=== PATIENT | male | born 1970 | race American Indian/Alaskan Native ===

== ENCOUNTER 2016-08-18 12:23 | Emergency (ER) | payer BC ==
[2016-08-18 12:23] VITALS: BMI 58.6
[2016-08-18 12:44] VITALS: TEMP 97.9; O2SAT 99
--- NOTE | 2016-08-18 13:13 | ED PDOC ---
Arrival/HPI - General Chief Complaint: High Blood Pressure Time Seen by Provider: 08/18/16 12:24 Historian: Patient - History of Present Illness Narrative History of Present Illness (Text): 08/18/16 13:10 46 year old male presents to the emergency department complaining of elevated blood pressure. Patient reports he has not been taking his hypertension medication over the past few days due to starting a recent cleanse. He states it was in the 200's systolic. Patient reports he took his hypertension medication prior to arrival. pt reports chest pain and subjective dyspnea. h/o of pe, not on eliquis at this time. Time/Duration: < week Symptom Onset: Gradual Symptom Course: Improving Modifying Factors (Text): None Associated Symptoms (Text): None Past Medical History - Provider Review Nursing Documentation Reviewed: Yes - Infectious Disease Hx of Infectious Diseases: None - Tetanus Immunization Tetanus Immunization: Unknown - Cardiac Hx Hypertension: Yes - Pulmonary Hx Pulmonary Embolism: Yes - Neurological Hx Neurological Disorder: No - HEENT Hx HEENT Disorder: No - Renal Hx Renal Disorder: No - Endocrine/Metabolic Hx Endocrine Disorders: No - Hematological/Oncological Hx Blood Disorders: No - Integumentary Hx Dermatological Disorder: No - Musculoskeletal/Rheumatological Hx Musculoskeletal Disorders: Yes Hx Falls: No Hx Gout: Yes - Gastrointestinal Hx Gastrointestinal Disorders: No - Genitourinary/Gynecological Hx Genitourinary Disorders: No - Psychiatric Hx Depression: No Hx Substance Use: No - Surgical History Hx Orthopedic Surgery: Yes (ORIF LEFT HIP pins isaac hips) - Anesthesia Hx Anesthesia: Yes Hx Anesthesia Reactions: No Hx Malignant Hyperthermia: No - Suicidal Assessment Feels Threatened In Home Enviroment: No Family/Social History - Physician Review Nursing Documentation Reviewed: Yes Family/Social History: Unknown Family HX Smoking Status: Never Smoked Hx Alcohol Use: No Hx Substance Use: No Hx Substance Use Treatment: No Allergies/Home Meds Allergies/Adverse Reactions: Allergies hydrochlorothiazide [From Hyzaar] Allergy (Verified 08/18/16 12:44) ANAPHYLAXIS losartan potassium [From Hyzaar] Allergy (Verified 08/18/16 12:44) ANAPHYLAXIS amlodipine besylate [From Norvasc] Adverse Reaction (Verified 08/18/16 12:44) HEADACHE pt feels jittery Home Medications: Home Meds Medication Instructions Recorded Confirmed Nebivolol [Bystolic] 5 mg PO DAILY 07/05/16 08/18/16 Chlorthalidone [Hygroton] 25 mg PO DAILY 08/18/16 08/18/16 Review of Systems - Physician Review All systems were reviewed & negative as marked: Yes - Review of Systems Constitutional: absent: Fatigue Eyes: absent: Vision Changes Respiratory: absent: SOB Cardiovascular: absent: Chest Pain Gastrointestinal: absent: Abdominal Pain Neurological: absent: Headache, Dizziness Physical Exam Vital Signs Reviewed: Yes Vital Signs Temp Pulse Resp BP Pulse Ox 08/18/16 17:27 66 18 154/83 H 99 08/18/16 15:00 65 17 173/60 H 99 08/18/16 13:45 60 20 184/99 H 99 08/18/16 12:44 97.9 F 99 H 18 161/85 H 99 08/18/16 12:35 97.9 F 71 18 177/108 H 98 Temperature: Afebrile Blood Pressure: Normal Pulse: Regular Respiratory Rate: Normal Appearance: Positive for: Well-Appearing, Non-Toxic, Comfortable Pain Distress: None Mental Status: Positive for: Alert and Oriented X 3 - Systems Exam Head: Present: Atraumatic, Normocephalic Pupils: Present: PERRL Extroacular Muscles: Present: EOMI Conjunctiva: Present: Normal Mouth: Present: Moist Mucous Membranes Neck: Present: Normal Range of Motion Respiratory/Chest: Present: Clear to Auscultation, Good Air Exchange. No: Respiratory Distress, Accessory Muscle Use Cardiovascular: Present: Regular Rate and Rhythm, Normal S1, S2. No: Murmurs Abdomen: Present: Normal Bowel Sounds. No: Tenderness, Distention, Peritoneal Signs Back: Present: Normal Inspection Upper Extremity: Present: Normal Inspection. No: Cyanosis, Edema Lower Extremity: Present: Normal Inspection. No: Edema Neurological: Present: GCS=15, CN II-XII Intact, Speech Normal Skin: Present: Warm, Dry, Normal Color. No: Rashes Psychiatric: Present: Alert, Oriented x 3, Normal Insight, Normal Concentration Medical Decision Making ED Course and Treatment: Impression: 46 year old male presents complaining of elevated blood pressure. Differential Diagnosis include but are not limited to: Asymptomatic hypertension vs hypertensive urgency/emergency . pt also reported intermittant cp, off eliquis will eval for pe. Plan: -- Labs -- Reassess and disposition Prior Visits: Notes and results from previous visits were reviewed. Patient last seen in ED on 07/08/16 for suspected allergic reaction and discharged home. Progress Notes: Chest X-ray Sales Director: Dr. Wayne Dorsey IMPRESSION: No infiltrate. Mild congestive change. PROCEDURE: CT Chest with contrast (Pulmonary Angiogram) Sales Director : Franky Diez MD IMPRESSION: Unremarkable CT pulmonary angiogram. No pulmonary embolus. 08/18/16 14:[address] neg. pt states feels improved. no e/o of end organ damage. pt specifically requesting to be d/c home. ekg no changes, trop neg. will d/c advise outpt f/u and return precautiosn - Lab Interpretations Lab Results: 08/18/16 13:05 08/18/16 13:05 Lab Results 08/18/16 13:05: WBC 9.2 D, RBC 4.76, Hgb 13.1 L, Hct 39.3 L, MCV 82.6, MCH 27.5 , MCHC 33.3, RDW 13.2, Plt Count 288, MPV 9.8, Gran % 49.3 L, Lymph % (Auto) 39.6 H, Yell % (Auto) 10.4 H, Eos % (Auto) 0.4 L, Baso % (Auto) 0.3, Gran # 4.52 , Lymph # 3.6 H, Yell # 1.0 H, Eos # 0.0, Baso # 0.03, PT 11.4, INR 1.06, APTT 28.9, D-Dimer, Quantitative 0.67 H, Sodium 137, Potassium 3.7, Chloride 99, Carbon Dioxide 30, Anion Gap 12, BUN 9, Creatinine 1.0, Est GFR ( Amer) > 60, Est GFR (Non-Af Amer) > 60, Random Glucose 96, Calcium 9.5, Magnesium 2.0 , Total Bilirubin 0.8, AST 28, ALT 30, Alkaline Phosphatase 91, Lactate Dehydrogenase 401, Total Creatine Kinase 245 H, CK-MB (CK-2) 1.5, CK-MB (CK-2) % Cancelled, Troponin I < 0.01, NT-Pro-B Natriuret Pep 33.8, Total Protein 7.5, Albumin 4.0, Globulin 3.5, Albumin/Globulin Ratio 1.1, Urine Color Yellow, Urine Appearance Clear, Urine pH 7.0, Ur Specific [place] 1.010, Urine Protein Negative, Urine Glucose (UA) Negative, Urine Ketones Negative, Urine Blood Negative, Urine Nitrate Negative, Urine Bilirubin Negative, Urine Urobilinogen 0.2, Ur Leukocyte Esterase Negative - RAD Interpretation Radiology Orders: 08/18/16 12:57 CHEST PORTABLE [RAD] Stat 08/18/16 14:16 ANGIO CHEST PE PROTOCOL [CT] Stat - EKG Interpretation EKG Interpretation (Text): EKG shows NSR at [address]/T wave changes Interpreted by ED Physician: Yes Type: 12 lead EKG - Medication Orders Current Medication Orders: Discontinued Medications Iodixanol (Visipaque 320 Mg/Ml 100 Ml) Confirm Administered Dose 100 ml IV .STK- MED ONE Stop: 08/18/16 14:21 Iodixanol (Visipaque 320 Mg/Ml 100 Ml) Confirm Administered Dose 100 ml IV .STK- MED ONE Stop: 08/18/16 14:36 Iodixanol (Visipaque 320 Mg/Ml 100 Ml) Confirm Administered Dose 100 ml IV .STK- MED ONE Stop: 08/18/16 16:09 - Scribe Statement The provider has reviewed the documentation as recorded by the Charan Jaramillo Provider Scribe Attestation: All medical record entries made by the Charan were at my direction and personally dictated by me. I have reviewed the chart and agree that the record accurately reflects my personal performance of the history, physical exam, medical decision making, and the department course for this patient. I have also personally directed, reviewed, and agree with the discharge instructions and disposition. Disposition/Present on Arrival - Present on Arrival Any Indicators Present on Arrival: No History of DVT/PE: Yes History of Uncontrolled Diabetes: No Urinary Catheter: No History of Decub. Ulcer: No History Surgical Site Infection Following: None - Disposition Have Diagnosis and Disposition been Completed?: Yes Diagnosis: Hypertension, Chest pain Disposition: HOME/ ROUTINE Disposition Time: 17:14 Patient Problems: Current Active Problems Problem Status Diagnosed Disorder of upper airway Acute Condition: STABLE Discharge Instructions (ExitCare): Chest Pain (ED), Hypertension (ED) Additional Instructions: please follow up with your doctor. return to er with worsening symptosm or concerns Referrals: Dexter Gomez MD [Primary Care Provider] - Follow up with primary Krishna,Robertammad, MD [Staff Provider] - Follow up with primary
--- NOTE | 2016-08-18 13:37 | RAD ---
HISTORY: cp COMPARISON: 05/31/2016 FINDINGS: LUNGS: No active pulmonary disease. PLEURA: No significant pleural effusion identified, no pneumothorax apparent. CARDIOVASCULAR: Normal heart size. Mild congestive change OSSEOUS STRUCTURES: No significant abnormalities. VISUALIZED UPPER ABDOMEN: Normal. OTHER FINDINGS: None. IMPRESSION: No infiltrate. Mild congestive change.
[2016-08-18 13:43] LABS: URINE BILIRUBIN NEGATIVE (NEGATIVE); URINE BLOOD NEGATIVE (NEGATIVE); URINE GLUCOSE (UA) NEGATIVE (NEGATIVE); URINE KETONE NEGATIVE (NEGATIVE); URINE LEUKOCYTE ESTERASE NEGATIVE Leu/uL (NEGATIVE); URINE PROTEIN NEGATIVE mg/dL (<30 mg/dL); URINE UROBILINOGEN 0.2 E.U./dL (<1 E.U./dL)
[2016-08-18 13:44] LABS: URINE APPEARANCE CLEAR (CLEAR); URINE COLOR YELLOW (YELLOW)
[2016-08-18 13:53] LABS: ADD MANUAL DIFF? NO
[2016-08-18 13:58] LABS: BASO # 0.03 K/mm3 (0.0-2.0); BASO % 0.3 % (0.0-3.0); EOS % 0.4 % (1.5-5.0); GRAN # 4.52 (1.4-6.5); GRAN % 49.3 % (50.0-68.0); HEMATOCRIT 39.3 % (42.0-52.0); LYMPH # 3.6 (1.2-3.4); LYMPH % 39.6 % (22.0-35.0); MEAN CELL VOLUME 82.6 fL (80.0-105.0); MEAN CORPUSCULAR HEMOGLOBIN 27.5 pg (25.0-35.0); MEAN CORPUSCULAR HGB CONC 33.3 g/dl (31.0-37.0); MEAN PLATELET VOLUME 9.8 fl (7.0-11.0); MONO % 10.4 % (1.0-6.0); PLATELET COUNT 288 10^3/uL (120.0-450.0); RED CELL DISTRIBUTION WIDTH 13.2 % (11.5-14.5); WHITE BLOOD COUNT 9.2 10^3/ul (4.5-11.0)
[2016-08-18 14:05] LABS: ALB/GLOB RATIO 1.1 (1.1-1.8); ALKALINE PHOSPHATASE 91 U/L (38-133); ALT/SGPT 30 U/L (7-56); AST/SGOT 28 U/L (15-59); BILIRUBIN,TOTAL 0.8 mg/dL (0.2-1.3); BLOOD UREA NITROGEN 9 mg/dL (7-21); CALCIUM 9.5 mg/dL (8.4-10.5); CARBON DIOXIDE 30 mmol/L (21-33); CHLORIDE 99 mmol/L (98-107); GFR AFRICAN-AMERICAN > 60; GLUCOSE,RANDOM 96 mg/dL (70-110); POTASSIUM 3.7 mmol/L (3.6-5.0); SODIUM 137 mmol/L (132-148); TOTAL PROTEIN 7.5 g/dL (5.8-8.3)
[2016-08-18 14:11] LABS: INR 1.06 (0.93-1.08); PARTIAL THROMBOPLASTIN TIME 28.9 Seconds (23.7-30.8)
[2016-08-18 14:15] LABS: D DIMER 0.67 mg/L FEU (0-0.50)
[2016-08-18 14:17] LABS: TROPONIN I < 0.01 ng/mL
[2016-08-18] MEDS ORDERED: Iodixanol 320 MG/ML 100 ML BOTTLE IV ONE ×3 (14:20→16:08)
--- NOTE | 2016-08-18 15:27 | CARD ---
APPROVED REPORT EKG Measurement Heart [id number] <Conclusion> Normal sinus rhythm NSSTW changes Q in 3
--- NOTE | 2016-08-18 17:07 | CT ---
PROCEDURE: CT Chest with contrast (Pulmonary Angiogram) HISTORY: cp elevated dimer COMPARISON: None available. TECHNIQUE: Axial computed tomography images were obtained of the chest in the pulmonary arterial phase of enhancement. Coronal and sagittal reformatted images were created and reviewed. Intravenous contrast dose: 100 cc of Visipaque Radiation dose: Total exam DLP = 951 mGy-cm. This CT exam was performed using one or more of the following dose reduction techniques: Automated exposure control, adjustment of the mA and/or kV according to patient size, and/or use of iterative reconstruction technique. FINDINGS: PULMONARY ARTERIES: Unremarkable. No pulmonary embolism. AORTA: No acute findings. No thoracic aortic aneurysm. LUNGS: Unremarkable. No nodule, mass or pulmonary consolidation. PLEURAL SPACES: Unremarkable. No effusion or pneuomothorax. HEART: Unremarkable. No cardiomegaly. No significant pericardial effusion. LYMPH NODES: No lymphadenopathy. BONES, CHEST WALL: Unremarkable. No fracture or destructive lesion OTHER FINDINGS: Unremarkable. IMPRESSION: Unremarkable CT pulmonary angiogram. No pulmonary embolus.
[2016-08-18 17:27] VITALS: BP 154/83; PULSE 66; RESP 18
== END 2016-08-18 17:36 | disposition home or self-care (01) ==
LOC: ED 12:23
DX: I10 Essential (primary) hypertension (principal); R07.9 Chest pain, unspecified
CPT/HCPCS: 71010; 71275; 80053; 81003; 82550; 82553; 83615; 83735; 83880; 84484; 85025; 85378; 85610; 85730; 93005; 99285; Q9967

== ENCOUNTER 2016-09-14 23:46 | Emergency (ER) | payer BC ==
[2016-09-15 00:13] VITALS: BMI 60.7
[2016-09-15 00:17] VITALS: RESP 18; TEMP 98.8
--- NOTE | 2016-09-15 00:29 | ED PDOC ---
Arrival/HPI - General Chief Complaint: Lower Extremity Problem/Injury Time Seen by Provider: 09/15/16 00:06 Historian: Patient - History of Present Illness Narrative History of Present Illness (Text): 09/15/16 00:25 This 46 yo morbid obese male, with pmh htn, presents to this ED c/o left knee problem x 1 week. Patient stated his left knee sometimes " gives out". He said this has happened twice this week. Patient admits exercising within last 3 months. Patient denies pain, swelling, redness, leg swelling, sob, cp, trauma , or recent travel. Patient ambulates normal with mild knee 'discomfort' Time/Duration: Other (see HPI) Context: Home Past Medical History - Provider Review Nursing Documentation Reviewed: Yes - Infectious Disease Hx of Infectious Diseases: None - Tetanus Immunization Tetanus Immunization: Unknown - Cardiac Hx Hypertension: Yes - Pulmonary Hx Pulmonary Embolism: Yes - Neurological Hx Neurological Disorder: No - HEENT Hx HEENT Disorder: No - Renal Hx Renal Disorder: No - Endocrine/Metabolic Hx Endocrine Disorders: No - Hematological/Oncological Hx Blood Disorders: No - Integumentary Hx Dermatological Disorder: No - Musculoskeletal/Rheumatological Hx Musculoskeletal Disorders: Yes Hx Falls: No Hx Gout: Yes - Gastrointestinal Hx Gastrointestinal Disorders: No - Genitourinary/Gynecological Hx Genitourinary Disorders: No - Psychiatric Hx Depression: No Hx Substance Use: No - Surgical History Hx Orthopedic Surgery: Yes (ORIF LEFT HIP pins isaac hips) - Anesthesia Hx Anesthesia: Yes Hx Anesthesia Reactions: No Hx Malignant Hyperthermia: No - Suicidal Assessment Feels Threatened In Home Enviroment: No Family/Social History - Physician Review Nursing Documentation Reviewed: Yes Family/Social History: No Known Family HX Smoking Status: Never Smoked Hx Alcohol Use: No Hx Substance Use: No Hx Substance Use Treatment: No Allergies/Home Meds Allergies/Adverse Reactions: Allergies hydrochlorothiazide [From Hyzaar] Allergy (Verified 08/18/16 12:44) ANAPHYLAXIS losartan potassium [From Hyzaar] Allergy (Verified 08/18/16 12:44) ANAPHYLAXIS amlodipine besylate [From Norvasc] Adverse Reaction (Verified 08/18/16 12:44) HEADACHE pt feels jittery Home Medications: Home Meds Medication Instructions Recorded Confirmed Nebivolol [Bystolic] 5 mg PO DAILY 07/05/16 08/18/16 Chlorthalidone [Hygroton] 25 mg PO DAILY 08/18/16 08/18/16 Review of Systems - Review of Systems Constitutional: Normal. absent: Fatigue, Weight Change, Fevers Eyes: Normal ENT: Normal Respiratory: Normal Cardiovascular: Normal Gastrointestinal: Normal Genitourinary Male: Normal Musculoskeletal: Other ((+) Left knee gives out) Skin: Normal Neurological: Normal Endocrine: Normal Hemo/Lymphatic: Normal Psychiatric: Normal Physical Exam Vital Signs Temp Pulse Resp BP Pulse Ox 09/15/16 02:20 76 18 149/74 98 09/15/16 00:15 98.8 F 84 18 156/92 H 99 Temperature: Afebrile Blood Pressure: Normal Pulse: Regular Respiratory Rate: Normal Appearance: Positive for: Well-Appearing, Non-Toxic, Comfortable Pain Distress: None Mental Status: Positive for: Alert and Oriented X 3 - Systems Exam Head: Present: Atraumatic, Normocephalic Pupils: Present: PERRL Extroacular Muscles: Present: EOMI Conjunctiva: Present: Normal Mouth: Present: Moist Mucous Membranes Neck: Present: Normal Range of Motion Respiratory/Chest: Present: Clear to Auscultation, Good Air Exchange. No: Respiratory Distress, Accessory Muscle Use Cardiovascular: Present: Regular Rate and Rhythm, Normal S1, S2. No: Murmurs Abdomen: Present: Normal Bowel Sounds. No: Tenderness, Distention, Peritoneal Signs Back: Present: Normal Inspection Upper Extremity: Present: Normal Inspection. No: Cyanosis, Edema Lower Extremity: Present: Normal Inspection, NORMAL PULSES, Normal ROM, Neurovascularly Intact, Capillary Refill < 2 s, Other ((+) anterior and posterior knee drawer test were negative. No medial or lateral collateral ligament laxity.). No: Edema, CALF TENDERNESS, Peter's Sign, Tenderness, Swelling, Erythema, Deformity, Temperature Abnormalties Neurological: Present: GCS=15, CN II-XII Intact, Speech Normal, Motor Func Grossly Intact, Normal Sensory Function, Normal Cerebellar Funct, Gait Normal, Memory Normal Skin: Present: Warm, Dry, Normal Color. No: Rashes Psychiatric: Present: Alert, Oriented x 3, Normal Insight, Normal Concentration Medical Decision Making ED Course and Treatment: 09/15/16 01:50 Re-evaluation. Patient feels better. Discussed results and plan with patient who expresses understanding. All questions answered and there is agreement with the plan to discharge home with instructions. Patient stable for discharge. Return if symptoms persist or worsen. Patient stated he has a knee brace at home. He asked for a cane. Re-evaluation Time: 01:50 Reassessment Condition: Re-examined, Improved - RAD Interpretation Narrative RAD Interpretations (Text): Knee X-rays: No fx or sublux. Mild DJD Radiology Orders: 09/15/16 00:29 KNEE WITH PATELLA LEFT 3 VIEW [RAD] Stat Disposition/Present on Arrival - Present on Arrival Any Indicators Present on Arrival: No History of DVT/PE: Yes History of Uncontrolled Diabetes: No Urinary Catheter: No History of Decub. Ulcer: No History Surgical Site Infection Following: None - Disposition Have Diagnosis and Disposition been Completed?: Yes Diagnosis: Knee pain Disposition: HOME/ ROUTINE Disposition Time: 01:51 Patient Plan: Discharge Condition: GOOD Discharge Instructions (ExitCare): Knee Sprain (ED) Additional Instructions: Call private doctor for follow up visit in 1-2 days. Take over the counter Tylenol for pain as needed. Remove zen bandage at bedtime. Return to emergency department if symptoms worsen. Call your private Orthopedist if knee problem persist, or worsen Referrals: Dexter Gomez MD [Primary Care Provider] - Follow up with primary Forms: WORK NOTE
[2016-09-15 02:21] VITALS: BP 149/74; PULSE 76; O2SAT 98
--- NOTE | 2016-09-15 08:12 | RAD ---
PROCEDURE: Left Knee Radiographs. HISTORY: Pain. COMPARISON: None. FINDINGS: BONES: Normal. No fracture. JOINTS: Joint space narrowing patellofemoral joint JOINT EFFUSION: None. OTHER FINDINGS: None. IMPRESSION: Mild degenerative changes in the patellofemoral joint
== END 2016-09-15 02:21 | disposition home or self-care (01) ==
LOC: ED 23:46
DX: M25.562 Pain in left knee (principal)

== ENCOUNTER 2016-10-10 10:23 | Emergency (ER) | payer BC ==
[2016-10-10 10:47] VITALS: TEMP 98.7; BMI 58.4
--- NOTE | 2016-10-10 11:03 | ED PDOC ---
Arrival/HPI - General Historian: Patient - General Chief Complaint: Lower Extremity Problem/Injury Time Seen by Provider: 10/10/16 10:53 - History of Present Illness Narrative History of Present Illness (Text): 10/10/16 10:53 46 y/o male, pmh including gout, c/o gout pain x 3 days. Pt. stated that he has been taking indocin with relief but of it, no fever or chills, no headache or night sweat, no dizziness, no chest pain or shortness of breath, admits eating alot of red meat 2 weeks ago, no palpitation, no numbness or tingling, no other medical or psychological complaints. (Se Baum) Past Medical History - Provider Review Nursing Documentation Reviewed: Yes - Infectious Disease Hx of Infectious Diseases: None - Tetanus Immunization Tetanus Immunization: Unknown - Cardiac Hx Cardiac Disorders: Yes Hx Hypertension: Yes - Pulmonary Hx Respiratory Disorders: Yes Hx Pulmonary Embolism: Yes - Neurological Hx Neurological Disorder: No - HEENT Hx HEENT Disorder: No - Renal Hx Renal Disorder: No - Endocrine/Metabolic Hx Endocrine Disorders: No - Hematological/Oncological Hx Blood Disorders: No - Integumentary Hx Dermatological Disorder: No - Musculoskeletal/Rheumatological Hx Musculoskeletal Disorders: Yes Hx Falls: No Hx Gout: Yes - Gastrointestinal Hx Gastrointestinal Disorders: No - Genitourinary/Gynecological Hx Genitourinary Disorders: No - Psychiatric Hx Depression: No Hx Substance Use: No - Surgical History Hx Orthopedic Surgery: Yes (ORIF LEFT HIP pins isaac hips) - Anesthesia Hx Anesthesia: Yes Hx Anesthesia Reactions: No Hx Malignant Hyperthermia: No - Suicidal Assessment Feels Threatened In Home Enviroment: No Family/Social History - Physician Review Nursing Documentation Reviewed: Yes Family/Social History: Unknown Family HX Smoking Status: Never Smoked Hx Alcohol Use: No Hx Substance Use: No Hx Substance Use Treatment: No Allergies/Home Meds Allergies/Adverse Reactions: Allergies hydrochlorothiazide [From Hyzaar] Allergy (Verified 08/18/16 12:44) ANAPHYLAXIS losartan potassium [From Hyzaar] Allergy (Verified 08/18/16 12:44) ANAPHYLAXIS amlodipine besylate [From Norvasc] Adverse Reaction (Verified 08/18/16 12:44) HEADACHE pt feels jittery Home Medications: Home Meds Medication Instructions Recorded Confirmed Nebivolol [Bystolic] 5 mg PO DAILY 07/05/16 10/10/16 Chlorthalidone [Hygroton] 25 mg PO DAILY 08/18/16 08/18/16 Review of Systems - Review of Systems Constitutional: absent: Fatigue, Fevers Eyes: absent: Vision Changes ENT: absent: Hearing Changes Respiratory: absent: SOB, Cough Cardiovascular: absent: Chest Pain Musculoskeletal: Arthralgias, Myalgias. absent: Back Pain, Neck Pain, Joint Swelling Neurological: absent: Headache, Dizziness, Focal Weakness Physical Exam Vital Signs Reviewed: Yes Temperature: Afebrile Blood Pressure: Hypertensive Pulse: Regular Respiratory Rate: Normal Appearance: Positive for: Well-Appearing, Non-Toxic Pain Distress: Moderate Mental Status: Positive for: Alert and Oriented X 3 - Systems Exam Head: Present: Atraumatic, Normocephalic Pupils: Present: PERRL Extroacular Muscles: Present: EOMI Conjunctiva: Present: Normal Mouth: Present: Moist Mucous Membranes Neck: Present: Normal Range of Motion Respiratory/Chest: Present: Clear to Auscultation, Good Air Exchange. No: Respiratory Distress, Accessory Muscle Use Cardiovascular: Present: Regular Rate and Rhythm, Normal S1, S2. No: Murmurs Abdomen: Present: Normal Bowel Sounds. No: Tenderness, Distention, Peritoneal Signs Back: Present: Normal Inspection Upper Extremity: Present: Normal Inspection. No: Cyanosis, Edema Lower Extremity: Present: Normal Inspection, Other (mild +ttp on the lt. 1st metatarsal joint region with no cellulitis or streaking, no ulcers, no deformity. ). No: Edema Neurological: Present: GCS=15, CN II-XII Intact, Speech Normal Skin: Present: Warm, Dry, Normal Color. No: Rashes Psychiatric: Present: Alert, Oriented x 3, Normal Insight, Normal Concentration Medical Decision Making ED Course and Treatment: 10/10/16 11:09 -colchicine 1.2mg po and percocet -Discharge home with indomethacin, prednisone, follow up with your own pmd and neurological surgeon within 2 days, return to the ER for any new or worsening signs or symptoms. (Se Baum) I was available for consultation during PA evaluation. The chart reviewed by me , and I agree with disposition. The documented history was done by the physician rewinder operator. The documented physical exam was done by the physician rewinder operator. The documented procedures were done by the physician rewinder operator. (Willian Medina) - Medication Orders Current Medication Orders: Discontinued Medications Colchicine (Colocrys) 1.2 mg PO STAT STA Stop: 10/10/16 11:06 Oxycodone/Acetaminophen (Percocet 5/325 Mg Tab) 1 tab PO STAT STA Stop: 10/10/16 11:06 - PA / JET OPERATOR / Resident Statement MD/DO has reviewed & agrees with the documentation as recorded. Disposition/Present on Arrival - Present on Arrival Any Indicators Present on Arrival: No History of DVT/PE: Yes History of Uncontrolled Diabetes: No Urinary Catheter: No History of Decub. Ulcer: No History Surgical Site Infection Following: None - Disposition Have Diagnosis and Disposition been Completed?: Yes Disposition Time: 11:10 Patient Plan: Discharge - Disposition Diagnosis: Gouty arthritis Disposition: HOME/ ROUTINE Condition: GOOD Additional Instructions: Discharge home with indomethacin, prednisone, follow up with your own pmd and neurological surgeon within 2 days, return to the ER for any new or worsening signs or symptoms. Prescriptions: Indomethacin [Indocin] 50 mg PO TID PRN #30 cap PRN Reason: Other predniSONE [Prednisone] 2 tab PO DAILY #4 tab Referrals: Omer Agustin DPM [Staff Provider] - Follow up with primary Forms: WORK NOTE
[2016-10-10] MEDS ORDERED: Oxycodone/Acetaminophen 5/325 mg Tab PO STA (11:05)
[2016-10-10 12:07] VITALS: BP 156/83; PULSE 79; RESP 18; O2SAT 100
== END 2016-10-10 12:06 | disposition home or self-care (01) ==
LOC: ED 10:23
DX: M10.9 Gout, unspecified (principal)

== ENCOUNTER 2016-10-19 02:22 | Emergency (ER) | payer BC ==
[2016-10-19 02:23] VITALS: BMI 58.4
--- NOTE | 2016-10-19 02:43 | ED PDOC ---
Arrival/HPI <Erick Ocasio - Last Filed: 10/19/16 02:59> - General Historian: Patient - History of Present Illness Symptom Onset: Gradual <Corrie Powell - Last Filed: 10/19/16 04:25> - General Chief Complaint: Shortness Of Breath Time Seen by Provider: 10/19/16 02:30 - History of Present Illness Narrative History of Present Illness (Text): 10/19/16 02:40 Patient is a 46 y/o with pmh of htn, gout and morbidly obese presenting with sob. Patient states he has SOB for 3-4 days, SOB occurs regardless of position. Patient also c/o cough which started 5 hours again with white sputum. Patient states cough started after work out. Denies cp, fever or chills. Denies n/v/d. C /o nasal stuffiness. 10/19/16 02:46 (Corrie Powell) Past Medical History - Provider Review Nursing Documentation Reviewed: Yes - Travel History Have you recently traveled outside [place] w/in the past 3 mons?: No - Infectious Disease Hx of Infectious Diseases: None - Tetanus Immunization Tetanus Immunization: Unknown - Cardiac Hx Cardiac Disorders: Yes Hx Hypertension: Yes - Pulmonary Hx Respiratory Disorders: Yes Hx Pulmonary Embolism: Yes - Neurological Hx Neurological Disorder: No - HEENT Hx HEENT Disorder: No - Renal Hx Renal Disorder: No - Endocrine/Metabolic Hx Endocrine Disorders: No - Hematological/Oncological Hx Blood Disorders: No - Integumentary Hx Dermatological Disorder: No - Musculoskeletal/Rheumatological Hx Musculoskeletal Disorders: Yes Hx Falls: No Hx Gout: Yes - Gastrointestinal Hx Gastrointestinal Disorders: No - Genitourinary/Gynecological Hx Genitourinary Disorders: No - Psychiatric Hx Depression: No Hx Substance Use: No - Surgical History Hx Orthopedic Surgery: Yes (ORIF LEFT HIP pins isaac hips) - Anesthesia Hx Anesthesia: Yes Hx Anesthesia Reactions: No Hx Malignant Hyperthermia: No - Suicidal Assessment Feels Threatened In Home Enviroment: No <Corrie Powell - Last Filed: 10/19/16 04:25> Family/Social History - Physician Review Nursing Documentation Reviewed: Yes Family/Social History: No Known Family HX Smoking Status: Never Smoked Hx Alcohol Use: No Hx Substance Use: No Hx Substance Use Treatment: No <Corrie Powell - Last Filed: 10/19/16 04:25> Allergies/Home Meds <Erick Ocasio - Last Filed: 10/19/16 02:59> <Corrie Powell - Last Filed: 10/19/16 04:25> Allergies/Adverse Reactions: Allergies hydrochlorothiazide [From Hyzaar] Allergy (Verified 08/18/16 12:44) ANAPHYLAXIS losartan potassium [From Hyzaar] Allergy (Verified 08/18/16 12:44) ANAPHYLAXIS amlodipine besylate [From Norvasc] Adverse Reaction (Verified 08/18/16 12:44) HEADACHE pt feels jittery Home Medications: Home Meds Medication Instructions Recorded Confirmed Nebivolol [Bystolic] 5 mg PO DAILY 07/05/16 10/10/16 Chlorthalidone [Hygroton] 25 mg PO DAILY 08/18/16 08/18/16 Review of Systems - Review of Systems Constitutional: Normal Eyes: Normal ENT: Normal Respiratory: SOB, Cough, Sputum. absent: Wheezing Cardiovascular: Normal Gastrointestinal: Normal Genitourinary Male: Normal Musculoskeletal: Normal Skin: Normal Neurological: Normal Endocrine: Normal Hemo/Lymphatic: Normal Psychiatric: Normal <Corrie Powell - Last Filed: 10/19/16 04:25> Physical Exam Vital Signs Reviewed: Yes Temperature: Afebrile Blood Pressure: Normal Pulse: Regular Respiratory Rate: Normal Appearance: Positive for: Well-Appearing, Non-Toxic, Comfortable Pain Distress: None Mental Status: Positive for: Alert and Oriented X 3 - Systems Exam Head: Present: Atraumatic, Normocephalic Pupils: Present: PERRL Extroacular Muscles: Present: EOMI Mouth: Present: Dry Neck: Present: Normal Range of Motion Respiratory/Chest: Present: Clear to Auscultation, Good Air Exchange. No: Respiratory Distress, Accessory Muscle Use, Wheezes, Rales, Rhonchi Cardiovascular: Present: Regular Rate and Rhythm, Normal S1, S2. No: Murmurs, Irregular Rhythm, Tachycardic, Bradycardic Abdomen: Present: Normal Bowel Sounds. No: Tenderness, Distention (obese abdomen. ) Back: Present: Normal Inspection Upper Extremity: Present: Normal Inspection. No: Edema Lower Extremity: Present: Normal Inspection. No: Edema Neurological: Present: GCS=15 Skin: Present: Warm, Dry, Normal Color. No: Rashes Psychiatric: Present: Alert, Oriented x 3, Normal Insight, Normal Concentration <Corrie Powell - Last Filed: 10/19/16 04:25> Vital Signs Temp Pulse Resp BP Pulse Ox 10/19/16 02:40 20 10/19/16 02:23 98.3 F 75 18 125/62 99 Medical Decision Making <Erick Ocasio - Last Filed: 10/19/16 02:59> Re-evaluation Time: 04:05 Reassessment Condition: Improved <Corrie Powell - Last Filed: 10/19/16 04:25> ED Course and Treatment: Impression: Pt seen and evaluated with biomedical instrument technician. Pt, whose past medical history includes hypertension, Gout, and obesity, presents for shortness of breath 3-4 days. Patient reports associated cough tonight. Aware and agree with HPI, clinical findings, plan, and management. Plan: -- Zithromax -- Reassess and disposition (Erick Ocasio) - Medication Orders Current Medication Orders: Discontinued Medications Albuterol/Ipratropium (Duoneb 3 Mg/0.5 Mg (3 Ml) Ud) 3 ml IH STAT STA Stop: 10/19/16 03:00 Last Admin: 10/19/16 03:11 Dose: 3 ml Azithromycin (Zithromax) 500 mg PO STAT STA PRN Reason: Protocol Stop: 10/19/16 02:48 Last Admin: 10/19/16 03:11 Dose: 500 mg - PA / STRIPING MACHINE OPERATOR / Resident Statement [facility] has reviewed & agrees with the documentation as recorded. [facility] has examined the patient and agrees with the treatment plan. <Erick Ocasio - Last Filed: 10/19/16 02:59> Disposition/Present on Arrival <Erick Ocasio - Last Filed: 10/19/16 02:59> - Present on Arrival Any Indicators Present on Arrival: No History of DVT/PE: Yes History of Uncontrolled Diabetes: No Urinary Catheter: No History of Decub. Ulcer: No History Surgical Site Infection Following: None - Disposition Have Diagnosis and Disposition been Completed?: Yes Disposition Time: 04:20 Patient Plan: Discharge <Corrie Powell - Last Filed: 10/19/16 04:25> - Disposition Diagnosis: Bronchitis Disposition: HOME/ ROUTINE Condition: STABLE Discharge Instructions (ExitCare): Acute Bronchitis (ED) Additional Instructions: Please take the antibiotic as prescribed. Continue with your nebulizers. Please go to the nearest emergency room if you experience chest pain, sob, fever or chills. Prescriptions: Azithromycin [Zithromax] 250 mg PO DAILY 4 Days Referrals: Dexter Gomez MD [Staff Provider] - Follow up with primary
[2016-10-19 02:52] VITALS: O2SAT 99
[2016-10-19] MEDS ORDERED: Albuterol-Ipratrop 3 mg / 0.5 (3 ml) UD IH STA (02:59)
[2016-10-19 03:42] VITALS: RESP 20
[2016-10-19 04:35] VITALS: BP 126/62; PULSE 70; TEMP 98.5
--- NOTE | 2016-10-19 15:50 | CARD ---
APPROVED REPORT EKG Measurement Heart [id number] <Conclusion> Normal sinus rhythm Nonspecific T wave abnormality Abnormal ECG
== END 2016-10-19 04:35 | disposition home or self-care (01) ==
LOC: ED 02:22
DX: J40 Bronchitis, not specified as acute or chronic (principal)

== ENCOUNTER 2016-10-23 22:55 | Emergency (ER) | payer BC ==
[2016-10-23 22:56] VITALS: BMI 58.4
[2016-10-23 23:50] VITALS: TEMP 98.1
[2016-10-24 01:35] LABS: ADD MANUAL DIFF? NO
[2016-10-24 01:41] LABS: BASO # 0.05 K/mm3 (0.0-2.0); BASO % 0.5 % (0.0-3.0); EOS # 0.1 (0.0-0.7); EOS % 1.3 % (1.5-5.0); GRAN # 4.72 (1.4-6.5); GRAN % 44.5 % (50.0-68.0); HEMATOCRIT 38.8 % (42.0-52.0); LYMPH # 4.5 (1.2-3.4); LYMPH % 42.7 % (22.0-35.0); MEAN CELL VOLUME 82.2 fL (80.0-105.0); MEAN CORPUSCULAR HEMOGLOBIN 26.7 pg (25.0-35.0); MEAN CORPUSCULAR HGB CONC 32.5 g/dl (31.0-37.0); MEAN PLATELET VOLUME 9.5 fl (7.0-11.0); MONO # 1.2 (0.1-0.6); PLATELET COUNT 279 10^3/uL (120.0-450.0); RED CELL DISTRIBUTION WIDTH 13.3 % (11.5-14.5); WHITE BLOOD COUNT 10.6 10^3/ul (4.5-11.0)
[2016-10-24] MEDS ORDERED: Sodium Chloride 0.9% 1,000 ML IV STA (01:59)
[2016-10-24 02:11] LABS: ALB/GLOB RATIO 1.2 (1.1-1.8); ALKALINE PHOSPHATASE 74 U/L (38-133); ALT/SGPT 23 U/L (7-56); AST/SGOT 32 U/L (15-59); BILIRUBIN,TOTAL 0.5 mg/dL (0.2-1.3); BLOOD UREA NITROGEN 15 mg/dL (7-21); CALCIUM 9.6 mg/dL (8.4-10.5); CARBON DIOXIDE 32 mmol/L (21-33); CHLORIDE 101 mmol/L (98-107); GFR AFRICAN-AMERICAN > 60; GLUCOSE,RANDOM 90 mg/dL (70-110); POTASSIUM 3.7 mmol/L (3.6-5.0); SODIUM 141 mmol/L (132-148); TOTAL PROTEIN 7.3 g/dL (5.8-8.3)
--- NOTE | 2016-10-24 02:13 | ED PDOC ---
Arrival/HPI - General Historian: Patient - History of Present Illness Time/Duration: 1 week Symptom Onset: Gradual Symptom Course: Intermittent Quality: Pressure, Tightness Severity Level: 2 <Karina Valle - Last Filed: 10/24/16 14:29> <Erick Ocasio - Last Filed: 10/24/16 20:49> - General Chief Complaint: Cough, Cold, Congestion Time Seen by Provider: 10/23/16 23:21 - History of Present Illness Narrative History of Present Illness (Text): 10/24/16 02:02 46-year-old male with a history of morbid obesity, hypertension and pulmonary embolism in the past recently stopped eliquis 4 months ago presents today with a one-week history of continued chest pain and shortness of breath with palpitations. No fevers or chills. Complaining of slight nasal congestion. Patient states he completed a course of Zithromax and Z-Daniel without improvement in his symptoms. Patient states he has a pressure along the substernal chest region that is nonradiating. He denies abdominal pain. No nausea or vomiting. Denies sick contacts at home. Patient denies radiation of pain to the back. Patient states he's been having intermittent pain in the lower extremities. Denies any recent travel. Denies smoking history. (Karina Valle) Past Medical History - Provider Review Nursing Documentation Reviewed: Yes - Travel History Have you recently traveled outside [place] w/in the past 3 mons?: No - Infectious Disease Hx of Infectious Diseases: None - Tetanus Immunization Tetanus Immunization: Unknown - Cardiac Hx Cardiac Disorders: Yes Hx Hypertension: Yes - Pulmonary Hx Respiratory Disorders: Yes Hx Pulmonary Embolism: Yes - Neurological Hx Neurological Disorder: No - HEENT Hx HEENT Disorder: No - Renal Hx Renal Disorder: No - Endocrine/Metabolic Hx Endocrine Disorders: No - Hematological/Oncological Hx Blood Disorders: No - Integumentary Hx Dermatological Disorder: No - Musculoskeletal/Rheumatological Hx Musculoskeletal Disorders: Yes Hx Falls: No Hx Gout: Yes - Gastrointestinal Hx Gastrointestinal Disorders: No - Genitourinary/Gynecological Hx Genitourinary Disorders: No - Psychiatric Hx Depression: No Hx Substance Use: No - Surgical History Hx Orthopedic Surgery: Yes (ORIF LEFT HIP pins isaac hips) - Anesthesia Hx Anesthesia: Yes Hx Anesthesia Reactions: No Hx Malignant Hyperthermia: No - Suicidal Assessment Feels Threatened In Home Enviroment: No <Karina Valle Bashir - Last Filed: 10/24/16 14:29> Family/Social History - Physician Review Nursing Documentation Reviewed: Yes Family/Social History: Unknown Family HX Smoking Status: Never Smoked Hx Alcohol Use: No Hx Substance Use: No Hx Substance Use Treatment: No <Karina Valle Bashir - Last Filed: 10/24/16 14:29> Allergies/Home Meds <LeonardKarina T - Last Filed: 10/24/16 14:29> <Erick Ocasio - Last Filed: 10/24/16 20:49> Allergies/Adverse Reactions: Allergies hydrochlorothiazide [From Hyzaar] Allergy (Verified 10/23/16 23:47) ANAPHYLAXIS losartan potassium [From Hyzaar] Allergy (Verified 10/23/16 23:47) ANAPHYLAXIS amlodipine besylate [From Norvasc] Adverse Reaction (Verified 10/23/16 23:47) HEADACHE pt feels jittery Home Medications: Home Meds Medication Instructions Recorded Confirmed Nebivolol [Bystolic] 5 mg PO DAILY 07/05/16 10/10/16 Chlorthalidone [Hygroton] 25 mg PO DAILY 08/18/16 08/18/16 Review of Systems - Review of Systems Constitutional: absent: Fatigue, Fevers Respiratory: SOB. absent: Cough, Sputum, Wheezing Cardiovascular: Chest Pain, Palpitations, Other Gastrointestinal: absent: Abdominal Pain, Nausea, Vomiting Musculoskeletal: absent: Back Pain, Neck Pain Skin: absent: Rash, Pruritis Neurological: Dizziness. absent: Headache Psychiatric: absent: Anxiety, Depression <Anand Valleerica Camejo - Last Filed: 10/24/16 14:29> Physical Exam Vital Signs Reviewed: Yes Temperature: Afebrile Blood Pressure: Normal Pulse: Regular Respiratory Rate: Normal Appearance: Positive for: Well-Appearing, Non-Toxic, Comfortable Pain Distress: None Mental Status: Positive for: Alert and Oriented X 3 - Systems Exam Head: Present: Atraumatic Pupils: Present: PERRL Extroacular Muscles: Present: EOMI Mouth: Present: Moist Mucous Membranes Pharnyx: Present: Normal Nose (External): Present: Atraumatic Neck: Present: Normal Range of Motion Respiratory/Chest: Present: Clear to Auscultation, Good Air Exchange. No: Respiratory Distress, Accessory Muscle Use, Wheezes, Retracting, Rhonchi, Tachypneic Cardiovascular: Present: Regular Rate and Rhythm. No: Murmurs, Tachycardic Abdomen: No: Tenderness Back: Present: Normal Inspection Neurological: Present: GCS=15 Skin: Present: Warm, Dry, Normal Color. No: Rashes Psychiatric: Present: Alert, Oriented x 3 <Karina Valle - Last Filed: 10/24/16 14:29> Medical Decision Making <Karina Valle - Last Filed: 10/24/16 14:29> <Erick Ocasio - Last Filed: 10/24/16 20:49> ED Course and Treatment: 10/24/16 02:04 pt with chest pain and SOB x 1 week. recently treated with zithromax. cbc; wnl cmp; wnl d-dimer; elevated; trop: ekg; normal sinus rhythm at 71 bpm normal axis normal intervals no ST elevations cxr: wnl CT ANGIO; r/o pe pt reassessment; pt non toxic well appearing; resting comfortably. impression; chest pain Admit observational status to tele; Dr. romero (Karina Valle) 10/24/16 03:47 Reviewed CTA Chest, shows: Pulmonary arteries: There is no gross evidence of pulmonary embolism, however evaluation for embolism in the segmental and subsegmental vessels is nondiagnostic secondary to suboptimal opacification of pulmonary arteries and excessive patient motion. Aorta: No acute findings. No thoracic aortic aneurysm. Lungs: No acute findings. No mass. No consolidation. Pleural space: No acute findings. No significant effusion. No pneumothorax. Heart: No acute findings. No cardiomegaly. No significant pericardial effusion. No evidence of RV dysfunction. Bones/joints: No acute fracture. No dislocation. Soft tissues: No acute findings. Lymph nodes: No acute findings. No enlarged lymph nodes. IMPRESSION: There is no gross evidence of pulmonary embolism, however evaluation for embolism in the segmental and subsegmental vessels is nondiagnostic secondary to suboptimal opacification of pulmonary arteries and excessive patient motion. 10/24/16 04:[address] Romero, who is aware and agrees with plan. Accepts pt in to his service. Pt will go to Telemetry observation for chest pain. Requests Dr. Keller on consult. (Erick Ocasio) - Lab Interpretations Lab Results: 10/24/16 01:20 10/24/16 01:20 Lab Results 10/24/16 01:20: D-Dimer, Quantitative 0.63 H 10/24/16 01:20: WBC 10.6, RBC 4.72, Hgb 12.6 L, Hct 38.8 L, MCV 82.2, MCH 26.7, MCHC 32.5, RDW 13.3, Plt Count 279, MPV 9.5, Gran % 44.5 L, Lymph % (Auto) 42.7 H, [place] % (Auto) 11.0 H, Eos % (Auto) 1.3 L, Baso % (Auto) 0.5, Gran # 4.72, Lymph # 4.5 H, [place] # 1.2 H, Eos # 0.1, Baso # 0.05 10/24/16 01:20: Sodium 141, Potassium 3.7, Chloride 101, Carbon Dioxide 32, Anion Gap 12, BUN 15, Creatinine 1.0, Est GFR ( Amer) > 60, Est GFR (Non- Af Amer) > 60, Random Glucose 90, Calcium 9.6, Total Bilirubin 0.5, AST 32, ALT 23, Alkaline Phosphatase 74, Lactate Dehydrogenase 424, Total Creatine Kinase 207, Troponin I < 0.01, Total Protein 7.3, Albumin 4.0, Globulin 3.3, Albumin/ Globulin Ratio 1.2 - RAD Interpretation Radiology Orders: 10/24/16 00:14 CHEST PORTABLE [RAD] Stat 10/24/16 01:59 ANGIO CHEST PE PROTOCOL [CT] Stat - Medication Orders Current Medication Orders: Apixaban (Eliquis) 10 mg PO BID [facility] PRN Reason: Protocol Last Admin: 10/24/16 16:02 Dose: 10 mg Arformoterol Tartrate (Brovana) 15 mcg IH [id number] [facility] Last Admin: 10/24/16 09:21 Dose: 15 mcg Budesonide (Pulmicort Respules) 0.25 mg IH [id number] [facility] Last Admin: 10/24/16 09:21 Dose: 0.25 mg Chlorthalidone (Hygroton) 25 mg PO DAILY [facility] Last Admin: 10/24/16 10:38 Dose: 25 mg Nebivolol [Bystolic] (5 Mg (Home Med)) 5 mg PO DAILY [facility] Last Admin: 10/24/16 10:42 Dose: Discontinued Medications Apixaban (Eliquis) 10 mg PO ONCE ONE PRN Reason: Protocol Stop: 10/24/16 16:46 Last Admin: 10/24/16 17:29 Dose: Sodium Chloride (Sodium Chloride 0.9%) 1,000 mls @ 999 mls/hr IV .Q1H1M STA Stop: 10/24/16 02:59 Iodixanol (Visipaque 320 Mg/Ml 100 Ml) Confirm Administered Dose 100 ml IV .STK- MED ONE Stop: 10/24/16 02:58 Methylprednisolone (Solu-Medrol) 40 mg IVP STAT STA Stop: 10/24/16 13:14 Last Admin: 10/24/16 16:39 Dose: 40 mg Pantoprazole Sodium (Protonix Ec Tab) 40 mg PO STAT STA Stop: 10/24/16 20:45 - PA / EDUCATIONAL RESOURCE COORDINATOR / Resident Statement [facility] has reviewed & agrees with the documentation as recorded. [facility] has examined the patient and agrees with the treatment plan. <Erick Ocasio - Last Filed: 10/24/16 20:49> Disposition/Present on Arrival - Present on Arrival History of DVT/PE: Yes History of Uncontrolled Diabetes: No Urinary Catheter: No History of Decub. Ulcer: No History Surgical Site Infection Following: None <Karina Valle - Last Filed: 10/24/16 14:29> - Present on Arrival Any Indicators Present on Arrival: No History of DVT/PE: No History of Uncontrolled Diabetes: No Urinary Catheter: No History of Decub. Ulcer: No History Surgical Site Infection Following: None - Disposition Have Diagnosis and Disposition been Completed?: Yes Disposition Time: 04:45 Patient Plan: Observation <Erick Ocasio - Last Filed: 10/24/16 20:49> - Disposition Diagnosis: Chest pain Disposition: HOSPITALIZED Patient Problems: Current Active Problems Problem Status Onset Chest pain Acute Condition: STABLE
[2016-10-24 02:36] LABS: TROPONIN I < 0.01 ng/mL
[2016-10-24] MEDS ORDERED: Iodixanol 320 MG/ML 100 ML BOTTLE IV ONE (02:57)
[2016-10-24] MEDS ORDERED: Budesonide 0.25 mg/2 ml Inhal Susp UD IH SCH (08:00)
[2016-10-24] MEDS ORDERED: Arformoterol 15 mcg/2 ml Inh Sol IH SCH (08:00)
--- NOTE | 2016-10-24 09:48 | RAD ---
HISTORY: chest pain/ shortness of breath COMPARISON: No prior. FINDINGS: LUNGS: The lungs are well inflated and clear. PLEURA: No significant pleural effusion identified, no pneumothorax apparent. CARDIOVASCULAR: Normal. OSSEOUS STRUCTURES: No significant abnormalities. VISUALIZED UPPER ABDOMEN: Normal. OTHER FINDINGS: None. IMPRESSION: No active pulmonary disease.
[2016-10-24] MEDS ORDERED: NEBIVOLOL 5 MG PO SCH (10:00)
--- NOTE | 2016-10-24 11:16 | CT ---
CTA chest PE protocol Indication: Chest pain, shortness of breath Technique: Contiguous axial images were obtained through the chest with intravenous contrast enhancement. Sagittal and coronal reconstructions were generated and reviewed. This CT exam was performed using 1 or more of the falling dose reduction techniques: Automated exposure control, adjustment of the MAA and/or kV according to patient size, and/or use of iterative reconstruction technique. IV Contrast: 100 mL Visipaque Radiation dose (DLP): 750.63 MGy-cm. Comparison: Chest chest x-ray performed 10/24/16, CTA chest performed 08/18/16 Findings: Examination limited by habitus and patient motion. Visualized portions of the inferior thyroid gland appear unremarkable. The limited evaluation of the mediastinal and hilar vascular structures appear grossly unremarkable. The heart appears within normal limits of size. There is suboptimal opacification of the pulmonary arteries due to excessive patient motion and suboptimal opacification of the pulmonary arteries (less than 200 HU). No gross evidence of focal filling defect within the main pulmonary artery, however this study is nondiagnostic for assessment of pulmonary emboli. No focal consolidation. No pleural effusion. No pneumothorax. Small hiatal hernia. Limited visualized portions of the upper abdomen appear grossly unremarkable. Degenerative changes. Impression: There is suboptimal opacification of the pulmonary arteries due to excessive patient motion and suboptimal opacification of the pulmonary arteries (less than 200 HU). No gross evidence of focal filling defect within the main pulmonary artery, however this study is nondiagnostic for assessment of pulmonary emboli. Preliminary impression was provided by virtual radiologic.
[2016-10-24 11:42] LABS: CHOLESTEROL 137 mg/dL (130-200)
[2016-10-24 12:03] LABS: TROPONIN I < 0.01 ng/mL
[2016-10-24] MEDS ORDERED: MethylPREDNISolone 40 mg Vial IVP STA (13:13)
--- NOTE | 2016-10-24 14:19 | US ---
HISTORY: Leg pain and swelling. Evaluate for DVT PHYSICIAN(S): Wayne Townsend MD. TECHNIQUE: Duplex sonography and color-flow Doppler with graded compression were used to evaluate the deep venous systems of both lower extremities. Exam is limited by body habitus and edema. The lower femoral veins and tibial veins are not well seen. FINDINGS: The visualized deep venous systems of both lower extremities are sonographically normal and compressible. Normal wave forms and augmentation are seen. There is no sonographic evidence for deep venous thrombosis in the visualized segments of both lower extremities. IMPRESSION: No sonographic evidence for deep venous thrombosis in the visualized segments of both lower extremities. Limited study.
--- NOTE | 2016-10-24 15:09 | NM ---
COMPARISON: Comparison is made to the previous CT angiogram dated 10/24/2016 TECHNIQUE: 39 mCi technetium 99-m DTPA 4.8 mCI technetium 99-m MAA administered intravenously. FINDINGS: VENTILATION COMPONENT: Slightly heterogeneous ventilation PERFUSION COMPONENT: Slightly heterogeneous without evidence of mismatching segmental perfusion defect. IMPRESSION: Lowprobability ventilation perfusion scan for pulmonary embolism.
[2016-10-24] MEDS ORDERED: Pantoprazole 40 mg EC Tab PO STA (20:44)
[2016-10-24 21:13] VITALS: BP 159/99; PULSE 68; RESP 16; O2SAT 99
[2016-10-24] MEDS ORDERED: Pneumococcal 23-Valent Vaccine IM ONE (21:14)
--- NOTE | 2016-10-25 08:39 | CON ---
DATE: 10/24/2016 REASON FOR CONSULTATION: Cardiac evaluation, came in congestion, history of PE. BRIEF CLINICAL HISTORY: This is a 46-year-old morbidly obese male with a past medical history of govind gstanding hypertension, history of PE 12/2015, was on Eliquis until June and after June [facility] ed. Recently, had congestion, nasal congestion, took Zithromax, did not get improve, felt mild short ness of breath and got scared, so came in here to check patient did not get recurrent PE. The patient came in himself, by himself. Denies any chest pain, denies any palpitation, denies any unusu al shortness of breath. PAST MEDICAL HISTORY: Significant for gout, hypertension, history of PE in 12/2015, history of morbi d obesity, history of pulmonary embolism on 12/25/2015. PREVIOUS CARDIAC WORKUP: The patient had a stress test, a stress myocardial perfusion study on 01/18, 2-days protocol that shows probably normal myocardial perfusion study, reversible distal anter oseptal defect, probably secondary to motion artifact rather than CAD, rather than ischemia, ejection fraction 58%. The patient had echocardiography on 01/05/2016 that shows ejection fraction 55%-60%, trace aortic regurgitation, trace mitral regurgitation, trace tricuspid regurgitation. SOCIAL HISTORY: Denies smoking. Denies any history of alcohol abuse. CURRENT MEDICATIONS: The patient is at home taking prednisone 2 tablets daily, 5 mg daily, ind omethacin 50 mg t.i.d. p.r.n., chlorthalidone 25 mg daily, and Zithromax 250 mg daily. ALLERGIES: HYDROCHLOROTHIAZIDE, LOSARTAN, AMLODIPINE. REVIEW OF SYSTEMS: As per HPI. PHYSICAL EXAMINATION: VITAL SIGNS: Temperature afebrile, heart rate 65, blood pressure 132/74. HEENT: PERRLA. Extraocular muscles intact. NECK: Supple. No carotid bruits. No thyromegaly. CHEST: Clear to auscultation. HEART: S1, S2 regular. ABDOMEN: Soft. EXTREMITIES: Clubbing, cyanosis negative. BLOOD WORKUP: WBC 10.3, hemoglobin 12.3, hematocrit 38.8, platelet count 279. Chemistry shows sodiu m 141, potassium 3.7, chloride 101, carbon dioxide 32, anion gap of 12, BUN 15, creatinine 1.0. Trop onin 0.01, negative. EKG shows normal sinus, nonspecific ST-T changes noted, rate 84. IMPRESSION: Atypical chest pain, negative stress test on 01/18/2013, history of pulmonary embolism i n 12/2015, off Eliquis 4 months, repeat CT negative for pulmonary embolism, morbid obesity, hypertens ion. Last echo, preserved left ventricular function. RECOMMENDATION: We will get second set of troponin. If troponin is negative, echo will do and possi ble discharge home, follow up as outpatient. Discussed with the patient. We will follow with you. Thank you, Dr. Gomez, for providing us the opportunity in taking care of the patient. Will follow w ith you. Thank you, Dr. Gomez, for providing us the opportunity in taking care of the patient. enzymes and will get echo. We will follow with you. Terra Keller MD cc: [id number] TT: 10/24/2016 17:02:41 Confirmation # [id number] Dictation # [id number]
--- NOTE | 2016-10-25 14:13 | HP ---
A 46-year-old male who came in with chest pain. HISTORY OF PRESENT ILLNESS: This is a 46-year-old morbidly obese male, hypertensive with history of pulmonary embolism in the past, came in with chest pain. The patient stopped his Eliquis after 6 mon ths of initial event. He did have a stress test, which was normal before, came in with chest heavine ss. The patient does feel heavy but feels congestion and breathing hurts when he takes a deep breath and came into ER for evaluation. PAST MEDICAL HISTORY: As I mentioned: 1. Morbid obesity. His BMI is 58.4. 2. Hypertension. 3. Back pain, knee pain, arthritis. ALLERGIES: HYDROCHLOROTHIAZIDE, LOSARTAN, AMLODIPINE. FAMILY HISTORY: Noncontributory. REVIEW OF SYSTEMS: He does have back pain sometimes and he gets short of breath and wheezing occasio dank. He does have asthma. PHYSICAL EXAMINATION: GENERAL: When he came in, patient was seen in the Emergency Room. He seems in no respiratory distre ss, but he complained of heaviness of the chest. VITAL SIGNS: His temperature is 98, heart rate 75, blood pressure 177/93, on repeat it was 132/74, r espirations 18, saturating 99% on room air. HEAD AND NECK: Normal. No JVD, no thyromegaly. CHEST: Clear. CARDIAC: First and second sounds are normal. ABDOMEN: Morbid obese. EXTREMITIES: No edema. NEUROLOGIC: Normal. LABORATORY DATA: Including white count 10.6, hemoglobin 12.6, hematocrit 38.8, platelets 279. PT in cluding D-dimer is 0.63. Chemistry: Sodium 141, potassium 3.7, chloride 101, bicarbonate , BUN 15, creatinine 1. Liver function test is normal. Troponin is normal. Repeat troponin came back al so normal. IMPRESSION AND PLAN: 1. Chest pain. The patient seen by mds coordinator, Dr. Keller. The patient initially had a chest CT wh ich was no evidence of any pathological findings with a lot of motion and rotations, inconclusive. C hest x-ray was negative, well aerated lungs and electrocardiogram was reported no acute ST elevations . The patient seen by Dr. Keller with repeat cardiac enzymes. He cleared him cardiac-tomlinson. 2. Dyspnea, congestion. The patient has a history of pulmonary embolism, morbid obese who is high r isk recurrent pulmonary embolism. He stopped his Eliquis. Will resume his Eliquis 10 mg b.i.d. for 5 days. We will get a VQ scan, venous Doppler of both lower extremities and consult with Dr. Lechuga. I spoke with him and he will see him that day. If it is negative, maybe after being seen by Dr. Thomas, will discharge him on Eliquis 10 mg b.i.d. The patient should follow up and resume his blood pr essure medicine, which has been given. We will continue follow up as outpatient. Dexter Gomez MD cc: 223 TT: 10/25/2016 14:13:00 tien
--- NOTE | 2016-10-25 17:38 | CARD ---
APPROVED REPORT EKG Measurement Heart [id number] <Conclusion> Normal sinus rhythm Nonspecific T wave abnormality Abnormal ECG
--- NOTE | 2016-10-25 18:07 | CARD ---
APPROVED REPORT EKG Measurement Heart [id number] [place] [id number] <Conclusion> Normal sinus rhythm Nonspecific T wave abnormality Abnormal ECG
== END 2016-10-24 21:30 | disposition short-term general hospital (02) ==
LOC: ED 22:55 → UNDOADMOB 10-24 05:00 → ERH 10-24 05:00 → ED 10-24 21:30
DX: R07.9 Chest pain, unspecified (principal); I10 Essential (primary) hypertension; Z86.711 Personal history of pulmonary embolism
CPT/HCPCS: 71010; 71275; 78582; 80053; 80061; 82550; 83036; 83615; 84443; 84484; 85025; 85378; 93005; 93970; 96374; 99285; J2920; Q9967

== ENCOUNTER 2017-01-03 14:30 | Emergency (ER) | payer BC ==
[2017-01-03 14:52] VITALS: BMI 59.0
[2017-01-03 14:57] VITALS: RESP 18; TEMP 98.5
--- NOTE | 2017-01-03 15:45 | ED PDOC ---
Arrival/HPI - General Chief Complaint: Lower Extremity Problem/Injury Time Seen by Provider: 01/03/17 15:12 Historian: Patient - History of Present Illness Narrative History of Present Illness (Text): 01/03/17 16:03 46yr old male presents today with clear fluid draining from small wound to the left lower leg. pt states he woke up this morning and noticed a small wound to the anterior lower leg that has been continuing to drain clear liquid. pt denies pain. denies trauma or injury. denies fever/chills. denies cp or sob. no other complaints. Symptom Onset: Sudden Symptom Course: Unchanged Quality: Other (no pain) Past Medical History - Provider Review Nursing Documentation Reviewed: Yes - Travel History Have you recently traveled outside [place] w/in the past 3 mons?: No - Infectious Disease Hx of Infectious Diseases: None - Tetanus Immunization Tetanus Immunization: Unknown - Cardiac Hx Cardiac Disorders: Yes Hx Hypertension: Yes - Pulmonary Hx Respiratory Disorders: Yes (pe) Hx Chronic Obstructive Pulmonary Disease (COPD): Yes Hx Sleep Apnea: Yes (non compliant with cpap at home) - Neurological Hx Dizziness: Yes - HEENT Hx HEENT Disorder: No - Renal Hx Renal Disorder: No - Endocrine/Metabolic Hx Endocrine Disorders: No - Hematological/Oncological Hx Blood Disorders: No - Integumentary Hx Dermatological Disorder: No - Musculoskeletal/Rheumatological Hx Falls: No Hx Gout: Yes - Gastrointestinal Hx Gastrointestinal Disorders: Yes (obese) - Genitourinary/Gynecological Hx Genitourinary Disorders: No - Psychiatric Hx Depression: No Hx Substance Use: No - Surgical History Hx Orthopedic Surgery: Yes (ORIF LEFT HIP pins isaac hips) Other/Comment: hip sx due to football injury age 13 - Anesthesia Hx Anesthesia: Yes Hx Anesthesia Reactions: No Hx Malignant Hyperthermia: No - Suicidal Assessment Feels Threatened In Home Enviroment: No Family/Social History - Physician Review Nursing Documentation Reviewed: Yes Family/Social History: Unknown Family HX Smoking Status: Never Smoked Hx Alcohol Use: No Hx Substance Use: No Hx Substance Use Treatment: No Allergies/Home Meds Allergies/Adverse Reactions: Allergies hydrochlorothiazide [From Hyzaar] Allergy (Verified 10/23/16 23:47) ANAPHYLAXIS losartan potassium [From Hyzaar] Allergy (Verified 10/23/16 23:47) ANAPHYLAXIS amlodipine besylate [From Norvasc] Adverse Reaction (Verified 10/23/16 23:47) HEADACHE pt feels jittery Home Medications: Home Meds Medication Instructions Recorded Confirmed Nebivolol [Bystolic] 5 mg PO DAILY 07/05/16 01/03/17 Chlorthalidone [Hygroton] 25 mg PO DAILY 08/18/16 01/03/17 Review of Systems - Review of Systems Constitutional: absent: Fatigue, Fevers Respiratory: absent: SOB, Cough Cardiovascular: absent: Chest Pain, Palpitations Gastrointestinal: absent: Abdominal Pain, Constipation, Diarrhea, Vomiting Genitourinary Male: absent: Dysuria, Frequency, Hematuria Musculoskeletal: absent: Arthralgias Skin: Skin Lesions Neurological: absent: Headache, Dizziness Psychiatric: absent: Anxiety, Depression Physical Exam Vital Signs Reviewed: Yes Vital Signs Temp Pulse Resp BP Pulse Ox 01/03/17 17:59 65 18 155/72 H 97 01/03/17 14:58 159/84 H 01/03/17 14:57 98.5 F 71 18 167/90 H 98 Temperature: Afebrile Blood Pressure: Hypertensive Pulse: Regular Respiratory Rate: Normal Appearance: Positive for: Well-Appearing, Non-Toxic, Comfortable Pain Distress: None Mental Status: Positive for: Alert and Oriented X 3 - Systems Exam Head: Present: Atraumatic Neck: Present: Normal Range of Motion Respiratory/Chest: Present: Clear to Auscultation Cardiovascular: Present: Regular Rate and Rhythm Lower Extremity: Present: Edema, NORMAL PULSES, Normal ROM, Neurovascularly Intact, Capillary Refill < 2 s, Other (+ small round superficial wound with clear discharge noted. non tender. no surround erythema. ). No: CALF TENDERNESS , Tenderness, Erythema, Deformity Neurological: Present: GCS=15, Speech Normal Skin: Present: Warm, Dry, Normal Color Psychiatric: Present: Alert, Oriented x 3 Medical Decision Making ED Course and Treatment: 01/03/17 16:05 46yr old male with small wound with clear draining to left lower leg. pt with very small abrasion to left leg with clear fluid draining; no surrounding erythema or tenderness. no purulent discharge. cbc: wbc; 16.4 (pt currently on prednisone for gout) cmp: wnl bnp: wnl duplex left leg; no dvt. case discussed with dr. reynoso; case discussed with podiatry resident moreno hodges at beside saw patient at beside; advised dressing of wound, bull wrap f/ u with podiatry wound dressed; augmentin po. pt to f/u with dr. reynoso. Patient with left lower leg swelling most likely lymphedema. Dressing applied an Bull bandage applied to left lower leg I discussed the results in depth with the patient advised follow-up with primary care physician and the test examiner within the next 2 days. Advised keeping the wound clean and dry and apply bacitracin twice daily. I advised immediate return if signs of infection develop: High fevers, increasing pain, increasing redness, increasing swelling, purulent discharge Patient verbalizes understanding of discharge instructions and need for immediate followup. impression; leg pain, wound, leg, leukocytosis Augmentin 1 tablet twice daily 10 days Keep the wound clean and dry, apply bacitracin twice daily Use Bull wrap for compression Follow-up with the primary care physician within the next 2 days Follow-up with the test examiner within the next 2 days Return immediately if signs of infection develop: High fevers, increasing pain, increasing redness, increasing swelling, purulent discharge. - Lab Interpretations Lab Results: 01/03/17 15:40 01/03/17 15:40 Lab Results 01/03/17 15:40: WBC 16.4 H D, RBC 4.80, Hgb 13.1 L, Hct 39.2 L, MCV 81.7, MCH 27.3, MCHC 33.4, RDW 13.1, Plt Count 279, MPV 9.8, Gran % 65.9, Lymph % (Auto) 26.0, [place] % (Auto) 7.7 H, Eos % (Auto) 0.2 L, Baso % (Auto) 0.2, Gran # 10.79 H , Lymph # 4.3 H, [place] # 1.3 H, Eos # 0.0, Baso # 0.04 01/03/17 15:40: Sodium 140, Potassium 3.7, Chloride 101, Carbon Dioxide 28, Anion Gap 15, BUN 13, Creatinine 0.9, Est GFR ( Amer) > 60, Est GFR (Non- Af Amer) > 60, Random Glucose 97, Calcium 9.6, Total Bilirubin 0.5, AST 27, ALT 23, Alkaline Phosphatase 79, NT-Pro-B Natriuret Pep 56.3, Total Protein 7.4, Albumin 4.2, Globulin 3.2, Albumin/Globulin Ratio 1.3 - RAD Interpretation Radiology Orders: 01/03/17 15:29 DUPLEX LOWER EXTRM VEIN LEFT [US] Stat Disposition/Present on Arrival - Present on Arrival Any Indicators Present on Arrival: No History of DVT/PE: No History of Uncontrolled Diabetes: No Urinary Catheter: No History of Decub. Ulcer: No History Surgical Site Infection Following: None - Disposition Have Diagnosis and Disposition been Completed?: Yes Diagnosis: Wound of left leg, Leg swelling Disposition: HOME/ ROUTINE Disposition Time: 18:21 Patient Plan: Discharge Condition: GOOD Discharge Instructions (ExitCare): Leg Edema (ED) Additional Instructions: Augmentin 1 tablet twice daily 10 days Keep the wound clean and dry, apply bacitracin twice daily Use Bull wrap for compression Follow-up with the primary care physician within the next 2 days Follow-up with the test examiner within the next 2 days Return immediately if signs of infection develop: High fevers, increasing pain, increasing redness, increasing swelling, purulent discharge. Prescriptions: Amoxicillin/Clavulanate [Augmentin 875 MG-125 MG] 1 tab PO BID #20 tab Bacitracin OINT 1 applic TP BID #1 tube traMADol [Ultram] 50 mg PO Q6H PRN #6 tab PRN Reason: moderate to severe pain Referrals: Dexter Gomez MD [Primary Care Provider] - Follow up with primary Tammy Reynoso DPM [Staff Provider] - Follow up with primary [facility] [Outside] - Follow up with primary Forms: [employer] (Greenlandic), WORK NOTE
[2017-01-03 15:53] LABS: BASO # 0.04 K/mm3 (0.0-2.0); BASO % 0.2 % (0.0-3.0); EOS % 0.2 % (1.5-5.0); GRAN # 10.79 (1.4-6.5); GRAN % 65.9 % (50.0-68.0); HEMATOCRIT 39.2 % (42.0-52.0); LYMPH # 4.3 (1.2-3.4); MEAN CELL VOLUME 81.7 fl (80.0-105.0); MEAN CORPUSCULAR HEMOGLOBIN 27.3 pg (25.0-35.0); MEAN CORPUSCULAR HGB CONC 33.4 g/dl (31.0-37.0); MEAN PLATELET VOLUME 9.8 fl (7.0-11.0); MONO # 1.3 (0.1-0.6); MONO % 7.7 % (1.0-6.0); RED CELL DISTRIBUTION WIDTH 13.1 % (11.5-14.5); WHITE BLOOD COUNT 16.4 10^3/ul (4.5-11.0)
[2017-01-03 16:03] LABS: ALB/GLOB RATIO 1.3 (1.1-1.8); ALKALINE PHOSPHATASE 79 U/L (38-133); ALT/SGPT 23 U/L (7-56); AST/SGOT 27 U/L (15-59); BILIRUBIN,TOTAL 0.5 mg/dL (0.2-1.3); BLOOD UREA NITROGEN 13 mg/dL (7-21); CALCIUM 9.6 mg/dL (8.4-10.5); CARBON DIOXIDE 28 mmol/L (21-33); CHLORIDE 101 mmol/L (98-107); GFR AFRICAN-AMERICAN > 60; GLUCOSE,RANDOM 97 mg/dL (70-110); POTASSIUM 3.7 mmol/L (3.6-5.0); SODIUM 140 mmol/L (132-148); TOTAL PROTEIN 7.4 g/dL (5.8-8.3)
[2017-01-03 18:00] VITALS: BP 155/72; PULSE 65; O2SAT 97
[2017-01-03] MEDS ORDERED: Amoxicillin-Clav 875-125 mg Tab PO STA (18:18)
--- NOTE | 2017-01-03 18:59 | US ---
PROCEDURE: Left lower extremity venous US HISTORY: Leg pain and swelling. Evaluate for DVT. PHYSICIAN(S): Wayne Townsend MD. TECHNIQUE: Duplex sonography and color-flow Doppler with graded compression were used to evaluate the deep venous system of the left lower extremity. The exam is limited by body habitus and edema. FINDINGS: The visualized deep venous system of the left lower extremity is sonographically normal and compressible. Normal wave forms and augmentation are seen. There is no sonographic evidence for deep venous thrombosis in the visualized segments of the left lower extremity. IMPRESSION: 1. No sonographic evidence for deep venous thrombosis in the visualized segments of the left lower extremity. 2. Limited study.
== END 2017-01-03 18:37 | disposition home or self-care (01) ==
LOC: ED 14:30
DX: S80.922A Unspecified superficial injury of left lower leg, initial encounter (principal); X58.XXXA Exposure to other specified factors, initial encounter; Y92.89 Other specified places as the place of occurrence of the external cause; M79.89 Other specified soft tissue disorders

== ENCOUNTER 2017-06-20 23:12 | Emergency (ER) | payer MEDICAID ==
[2017-06-20 23:16] VITALS: BMI 53.2
--- NOTE | 2017-06-21 00:51 | ED PDOC ---
Arrival/HPI <Erick Ocasio - Last Filed: 06/21/17 03:20> - General Historian: Patient - History of Present Illness Symptom Onset: Gradual Symptom Course: Unchanged Activities at Onset: Light Context: Home <Karina Valle - Last Filed: 06/21/17 03:59> - General Chief Complaint: Chest Pain Time Seen by Provider: 06/20/17 23:40 - History of Present Illness Narrative History of Present Illness (Text): 06/20/17 23:40 47 year old morbidly obese male, whose past medical history includes hypertension and Gout, who presents to the ED complaining of anterior chest pressure radiating to neck since this afternoon. Patient states he believed it may be gas. Patient denies any abdominal pain, nausea, or vomiting. Patient also complaining of 1 week of left calf pain and left ankle pain. Patient notes he has history of Gout and began eating red meat, which he believes may have caused a Gout flare-up. Patient did not take any medications for pain at home. Patient denies any dizziness, weakness, URI symptoms, urinary symptoms, or any other complaints. (Karina Valle) Past Medical History - Provider Review Nursing Documentation Reviewed: Yes - Infectious Disease Hx of Infectious Diseases: None - Tetanus Immunization Tetanus Immunization: Unknown - Cardiac Hx Cardiac Disorders: Yes Hx Hypertension: Yes - Pulmonary Hx Respiratory Disorders: Yes (pe) Hx Chronic Obstructive Pulmonary Disease (COPD): Yes Hx Sleep Apnea: Yes (non compliant with cpap at home) - Neurological Hx Dizziness: Yes - HEENT Hx HEENT Disorder: No - Renal Hx Renal Disorder: No - Endocrine/Metabolic Hx Endocrine Disorders: No - Hematological/Oncological Hx Blood Disorders: No - Integumentary Hx Dermatological Disorder: No - Musculoskeletal/Rheumatological Hx Falls: No Hx Gout: Yes - Gastrointestinal Hx Gastrointestinal Disorders: Yes (obese) - Genitourinary/Gynecological Hx Genitourinary Disorders: No - Psychiatric Hx Depression: No Hx Substance Use: No - Surgical History Hx Orthopedic Surgery: Yes (ORIF LEFT HIP pins isaac hips) Other/Comment: hip sx due to football injury age 13 - Anesthesia Hx Anesthesia: Yes Hx Anesthesia Reactions: No Hx Malignant Hyperthermia: No - Suicidal Assessment Feels Threatened In Home Enviroment: No <Karina Valle - Last Filed: 06/21/17 03:59> Family/Social History - Physician Review Nursing Documentation Reviewed: Yes Family/Social History: Unknown Family HX Smoking Status: Never Smoked Hx Alcohol Use: No Hx Substance Use: No Hx Substance Use Treatment: No <Karina Valle - Last Filed: 06/21/17 03:59> Allergies/Home Meds <NinfaErick - Last Filed: 06/21/17 03:20> <Karina Valle - Last Filed: 06/21/17 03:59> Allergies/Adverse Reactions: Allergies hydrochlorothiazide [From Hyzaar] Allergy (Verified 10/23/16 23:47) ANAPHYLAXIS losartan potassium [From Hyzaar] Allergy (Verified 10/23/16 23:47) ANAPHYLAXIS amlodipine besylate [From Norvasc] Adverse Reaction (Verified 10/23/16 23:47) HEADACHE pt feels jittery Home Medications: Home Meds Medication Instructions Recorded Confirmed Nebivolol [Bystolic] 5 mg PO DAILY 07/05/16 01/03/17 Chlorthalidone [Hygroton] 25 mg PO DAILY 08/18/16 01/03/17 Review of Systems - Physician Review All systems were reviewed & negative as marked: Yes - Review of Systems Constitutional: Normal. absent: Fevers Respiratory: Normal. absent: SOB, Cough Cardiovascular: Chest Pain Gastrointestinal: Normal. absent: Abdominal Pain, Diarrhea, Nausea, Vomiting Genitourinary Male: Normal. absent: Dysuria, Frequency, Hematuria, Urinary Output Changes Musculoskeletal: Arthralgias (+left ankle pain, +left calf pain). absent: Back Pain, Neck Pain Skin: Cellulitis Neurological: absent: Headache, Dizziness Psychiatric: absent: Anxiety, Depression <Karina Valle - Last Filed: 06/21/17 03:59> Physical Exam Vital Signs Reviewed: Yes Temperature: Afebrile Blood Pressure: Hypertensive Pulse: Regular Respiratory Rate: Normal Appearance: Positive for: Well-Appearing, Non-Toxic, Comfortable Pain Distress: None Mental Status: Positive for: Alert and Oriented X 3 - Systems Exam Head: Present: Atraumatic, Normocephalic Pupils: Present: PERRL Extroacular Muscles: Present: EOMI Conjunctiva: Present: Normal Mouth: Present: Moist Mucous Membranes Neck: Present: Normal Range of Motion (Full ROM). No: Meningeal Signs, MIDLINE TENDERNESS, Paraspinal Tenderness, JVD Respiratory/Chest: Present: Clear to Auscultation, Good Air Exchange. No: Respiratory Distress, Accessory Muscle Use Cardiovascular: Present: Regular Rate and Rhythm, Normal S1, S2. No: Murmurs Abdomen: Present: Normal Bowel Sounds. No: Tenderness, Distention, Peritoneal Signs Back: Present: Normal Inspection. No: CVA Tenderness, Midline Tenderness, Paraspinal Tenderness Upper Extremity: Present: Normal Inspection. No: Cyanosis, Edema Lower Extremity: Present: CALF TENDERNESS, NORMAL PULSES, Normal ROM, Tenderness , Swelling, Erythema, Neurovascularly Intact, Capillary Refill < 2 s, Other ( Left leg swelling, erythema, and warmth surrouding the ankle with tenderness over Achilles' tendon, sensation and distal pulses intact). No: Edema, Cyanosis , Peter's Sign, Deformity Neurological: Present: GCS=15, Speech Normal Skin: Present: Warm, Dry, Normal Color. No: Rashes Psychiatric: Present: Alert, Oriented x 3, Normal Insight, Normal Concentration <Karina Valle - Last Filed: 06/21/17 03:59> Vital Signs Temp Pulse Resp Pulse Ox 06/20/17 23:20 98.1 F 75 18 100 Medical Decision Making <Erick Ocasio - Last Filed: 06/21/17 03:20> <Karina Valle - Last Filed: 06/21/17 03:59> ED Course and Treatment: 06/21/17 03:54 pt with chest pain ; slightly hypertensive. c/o cp and left leg pain. cbc; wbc; 11.5 cmp; wnl trop: wnl ekg; normal sinus rhythm at [address] elevations normal axis normal intervals cxr; no infiltrate asa morphine venous duplex of left lower leg pending pt currently on eliquis. pt reassessment; pt feeling better after medications will start vanco and zosyn for cellulitis to left lower leg. case discussed with Dr. irving will Admit observational status to Tele for chest pain r/o acs. impression; chest pain, cellulitis, leg Admit observational status to tele; (Karina Valle) - Lab Interpretations Lab Results: 06/20/17 23:56 06/20/17 23:56 Lab Results 06/20/17 23:56: WBC 11.5 H D, RBC 4.73, Hgb 12.7 L, Hct 39.2 L, MCV 82.9, MCH 26.8, MCHC 32.4, RDW 13.0, Plt Count 323, MPV 10.4, Gran % 65.9, Lymph % (Auto) 24.5, [place] % (Auto) 9.2 H, Eos % (Auto) 0.3 L, Baso % (Auto) 0.1, Gran # 7.56 H , Lymph # (Auto) 2.8, [place] # (Auto) 1.1 H, Eos # (Auto) 0.0, Baso # (Auto) 0.01 06/20/17 23:56: Sodium 140, Potassium 4.1, Chloride 97 L, Carbon Dioxide 31, Anion Gap 16, BUN 9, Creatinine 1.1, Est GFR ( Amer) > 60, Est GFR (Non- Af Amer) > 60, Random Glucose 90, Calcium 9.8, Total Bilirubin 0.6, AST 33, ALT 24, Alkaline Phosphatase 79, Lactate Dehydrogenase 411, Total Creatine Kinase 259 H, CK-MB (CK-2) 1.8, CK-MB (CK-2) % Cancelled, Troponin I < 0.01, Total Protein 7.4, Albumin 4.1, Globulin 3.3, Albumin/Globulin Ratio 1.2 - RAD Interpretation Radiology Orders: 06/20/17 23:40 CHEST PORTABLE [RAD] Stat 06/21/17 02:07 DUPLEX LOWER EXTRM VEIN LEFT [US] Stat - Medication Orders Current Medication Orders: Vancomycin HCl (Vancomycin 1gm) 1 gm in 250 mls @ 167 mls/hr IVPB STAT STA PRN Reason: Protocol Stop: 06/21/17 03:36 Discontinued Medications Hydromorphone HCl (Dilaudid) 1 mg IVP STAT STA Stop: 06/21/17 02:09 Last Admin: 06/21/17 02:25 Dose: 1 mg LAITH Pain Assessment Document 06/21/17 02:25 DONALD (Rec: 06/21/17 02:26 R [id number]) Pain Reassessment Is this a pain reassessment? No Sleep Is patient sleeping during reassessment? No Presence of Pain Presence of Pain Yes Pain Scale Used Pain Scale Used Numeric Location Left, Right or Bilateral Left Pain Location Body Site Foot Description Description Sharp Intensity of Pain at present 8 Acceptable Level of Pain 0 Pain Behavior Irritability Restlessness Aggravating Factors ADL's IVP Administration Document 06/21/17 02:25 JMR (Rec: 06/21/17 02:26 R [id number]) Charges for Administration # of IVP Administrations 1 Piperacillin Sod/Tazobactam Sod (Zosyn 3.375 In Ns 100ml) 100 mls @ 200 mls/hr IVPB STAT STA PRN Reason: Protocol Stop: 06/21/17 02:36 Morphine Sulfate (Morphine) 4 mg IVP STAT STA Stop: 06/21/17 01:29 Last Admin: 06/21/17 01:44 Dose: 4 mg MAR Pain Assessment Document 06/21/17 01:44 R (Rec: 06/21/17 01:45 [id number] Pain Reassessment Is this a pain reassessment? No Sleep Is patient sleeping during reassessment? No Presence of Pain Presence of Pain Yes Pain Scale Used Pain Scale Used Numeric Location Left, Right or Bilateral Left Pain Location Body Site Foot Description Description Pressure Intensity of Pain at present 8 Acceptable Level of Pain 0 Pain Behavior Moaning Irritability Aggravating Factors ADL's IVP Administration Document 06/21/17 01:44 JMR (Rec: 06/21/17 01:45 R [id number]) Charges for Administration # of IVP Administrations 1 Prednisone (Prednisone Tab) 40 mg PO STAT STA Stop: 06/21/17 03:20 - PA / BRASS INSTRUMENT REPAIR TECHNICIAN / Resident Statement MD/DO has reviewed & agrees with the documentation as recorded. <Erick Ocasio - Last Filed: 06/21/17 03:20> - Scribe Statement The provider has reviewed the documentation as recorded by the Scribe <Karina Valle - Last Filed: 06/21/17 03:59> - Scribe Statement Esperanza García All medical record entries made by the Scribe were at my direction and personally dictated by me. I have reviewed the chart and agree that the record accurately reflects my personal performance of the history, physical exam, medical decision making, and the department course for this patient. I have also personally directed, reviewed, and agree with the discharge instructions and disposition. (Karina Valle) Disposition/Present on Arrival <Erick Ocasio - Last Filed: 06/21/17 03:20> - Present on Arrival Any Indicators Present on Arrival: No History of DVT/PE: No History of Uncontrolled Diabetes: No Urinary Catheter: No History of Decub. Ulcer: No History Surgical Site Infection Following: None - Disposition Have Diagnosis and Disposition been Completed?: Yes Disposition Time: 03:58 Patient Plan: Observation <Karina Valle - Last Filed: 06/21/17 03:59> - Disposition Diagnosis: Chest pain, Cellulitis, leg Disposition: HOSPITALIZED Condition: FAIR
[2017-06-21 00:59] LABS: BASO # 0.01 K/mm3 (0.0-2.0); BASO % 0.1 % (0.0-3.0); EOS % 0.3 % (1.5-5.0); GRAN # 7.56 (1.4-6.5); GRAN % 65.9 % (50.0-68.0); HEMOGLOBIN 12.7 g/dL (14.0-18.0); LYMPH # 2.8 (1.2-3.4); LYMPH % 24.5 % (22.0-35.0); MEAN CELL VOLUME 82.9 fl (80.0-105.0); MEAN CORPUSCULAR HEMOGLOBIN 26.8 pg (25.0-35.0); MEAN CORPUSCULAR HGB CONC 32.4 g/dl (31.0-37.0); MEAN PLATELET VOLUME 10.4 fl (7.0-11.0); MONO # 1.1 (0.1-0.6); MONO % 9.2 % (1.0-6.0); RBC 4.73 10^6/uL (3.5-6.1); WHITE BLOOD COUNT 11.5 10^3/ul (4.5-11.0)
[2017-06-21 01:20] LABS: ALB/GLOB RATIO 1.2 (1.1-1.8); ALBUMIN 4.1 g/dL (3.0-4.8); ALT/SGPT 24 U/L (7-56); AST/SGOT 33 U/L (17-59); BLOOD UREA NITROGEN 9 mg/dL (7-21); CALCIUM 9.8 mg/dL (8.4-10.5); GFR AFRICAN-AMERICAN > 60; GFR NON-AFRICAN AMERICAN > 60
[2017-06-21] MEDS ORDERED: Morphine 4 mg/ml ISec IVP STA (01:28)
[2017-06-21 01:37] LABS: CK-MB 1.8 ng/mL (0.0-3.6); TROPONIN I < 0.01 ng/mL
[2017-06-21] MEDS ORDERED: Vancomycin 1gm in NS 250ml 1 GM/250 ML BAG IVPB STA (02:07)
[2017-06-21] MEDS ORDERED: Piperacillin/Tazobact 3.375 gm 100 ML IVPB STA (02:07)
[2017-06-21] MEDS ORDERED: HYDROmorphone 0.5 mg/0.5 ml ISec IVP STA (02:08)
[2017-06-21 03:21] LABS: URINE BILIRUBIN NEGATIVE (NEGATIVE); URINE BLOOD NEGATIVE (NEGATIVE); URINE GLUCOSE (UA) NEGATIVE (NEGATIVE); URINE LEUKOCYTE ESTERASE NEGATIVE Leu/uL (NEGATIVE); URINE NITRATE NEGATIVE (NEGATIVE); URINE PROTEIN NEGATIVE mg/dL (<30 mg/dL); URINE UROBILINOGEN 0.2 E.U./dL (<1 E.U./dL)
[2017-06-21 03:39] LABS: URINE APPEARANCE CLEAR (CLEAR); URINE COLOR YELLOW (YELLOW)
--- NOTE | 2017-06-21 04:03 | CP.PCM.HP ---
History of Present Illness - History of Present Illness History of Present Illness: 47 year AA male with PMHx of Gout, GERD, and PEx2 (on eliquis) presents with Left non-radiating, achy, 8/10 ankle pain x 1 day. Patient states he took Motrin which resolved the pain. He states it feels just like his gout pain that he has had in the past. He also complained of sharp radiating chest pain ( began Monday) which resolved in the ED. He attributes his chest pain to "gas" . Patient stated that he was supposed to take Eliquis until last month. Patient states his PMD told him to continue taking the eliquis until the bottle is finish and that he would taper the dose afterwards. He missed his evening eliquis dose because he was told by the pharmacist not to take motrin while on eliquis. ROS POSITIVES: left ankle pain, left big toe pain, chest pain (resolved) NEGATIVES: Denies any fevers, chills, SOB, nausea, vomiting, abdominal pain, changes in bowel habits, urinary symptoms, motor/sensory loss. PMHx: PEx2, Gout PSHx: Denies Allergies: Denies (Per chart: HCTZ, Losartan, amlodipine) SocialHx: Denies tobacco, alcohol, or illicit drug use. Hos: Last year for chest pain FamHx: Denies Meds: [place], Eliquis 5 BID PMD: Dr. Boogie Present on Admission - Present on Admission Any Indicators Present on Admission: Yes History of DVT/PE: Yes Review of Systems - Review of Systems Review of Systems: As per HPI Past Patient History - Infectious Disease Hx of Infectious Diseases: None - Tetanus Immunizations Tetanus Immunization: Unknown - Past Social History Smoking Status: Never Smoked - CARDIAC Hx Cardiac Disorders: Yes Hx Hypertension: Yes - PULMONARY Hx Respiratory Disorders: Yes (pe) Hx Chronic Obstructive Pulmonary Disease (COPD): Yes Hx Sleep Apnea: Yes (non compliant with cpap at home) - NEUROLOGICAL Hx Dizziness: Yes - HEENT Hx HEENT Problems: No - RENAL Hx Chronic Kidney Disease: No - ENDOCRINE/METABOLIC Hx Endocrine Disorders: No - HEMATOLOGICAL/ONCOLOGICAL Hx Blood Disorders: No - INTEGUMENTARY Hx Dermatological Problems: No - MUSCULOSKELETAL/RHEUMATOLOGICAL Hx Falls: No Hx Gout: Yes - GASTROINTESTINAL Hx Gastrointestinal Disorders: Yes (obese) - GENITOURINARY/GYNECOLOGICAL Hx Genitourinary Disorders: No - PSYCHIATRIC Hx Depression: No Hx Substance Use: No - SURGICAL HISTORY Hx Orthopedic Surgery: Yes (ORIF LEFT HIP pins isaac hips) Other/Comment: hip sx due to football injury age 13 - ANESTHESIA Hx Anesthesia: Yes Hx Anesthesia Reactions: No Hx Malignant Hyperthermia: No Meds Allergies/Adverse Reactions: Allergies Allergy/AdvReac Type Severity Reaction Status Date / Time hydrochlorothiazide Allergy ANAPHYLAXIS Verified 10/23/16 23:47 [From Hyzaar] losartan potassium Allergy ANAPHYLAXIS Verified 10/23/16 23:47 [From Hyzaar] amlodipine besylate AdvReac HEADACHE Verified 10/23/16 23:47 [From Norvas] Physical Exam - Constitutional Appears: Well, Non-toxic, No Acute Distress - Head Exam Head Exam: ATRAUMATIC, NORMAL INSPECTION, NORMOCEPHALIC - Eye Exam Eye Exam: EOMI, Normal appearance. absent: Scleral icterus - ENT Exam ENT Exam: Mucous Membranes Moist - Neck Exam Neck exam: Positive for: Normal Inspection - Respiratory Exam Respiratory Exam: Clear to Auscultation Bilateral, NORMAL BREATHING PATTERN. absent: Accessory Muscle Use, Rales, Rhonchi, Wheezes, Respiratory Distress, Stridor - Cardiovascular Exam Cardiovascular Exam: RRR, +S1, +S2. absent: JVD - GI/Abdominal Exam GI & Abdominal Exam: Normal Bowel Sounds, Soft. absent: Firm, Guarding, Rebound , Rigid, Tenderness - Extremities Exam Extremities exam: Positive for: normal capillary refill, tenderness, pedal pulses present. Negative for: calf tenderness, pedal edema Additional comments: Left anterior ankle tender to palpation Left Big Toe tender to palpation Decreased ROM of left foot - Neurological Exam Neurological exam: Alert, Oriented x3 - Psychiatric Exam Psychiatric exam: Normal Affect, Normal Mood - Skin Skin Exam: Dry, Intact, Normal Color, Warm Results - Vital Signs Recent Vital Signs: Last Vital Signs Temp 98.1 F 06/20/17 23:20 Pulse 75 06/20/17 23:20 Resp 18 06/20/17 23:20 BP Pulse Ox 100 06/20/17 23:20 - Labs Result Diagrams: 06/20/17 23:56 06/20/17 23:56 Labs: Laboratory Results - last 24 hr 06/20/17 06/20/17 23:56 23:56 WBC 11.5 H D RBC 4.73 Hgb 12.7 L Hct 39.2 L MCV 82.9 MCH 26.8 MCHC 32.4 RDW 13.0 Plt Count 323 MPV 10.4 Gran % 65.9 Lymph % (Auto) 24.5 [place] % (Auto) 9.2 H Eos % (Auto) 0.3 L Baso % (Auto) 0.1 Gran # 7.56 H Lymph # (Auto) 2.8 [place] # (Auto) 1.1 H Eos # (Auto) 0.0 Baso # (Auto) 0.01 Sodium 140 Potassium 4.1 Chloride 97 L Carbon Dioxide 31 Anion Gap 16 BUN 9 Creatinine 1.1 Est GFR ( Amer) > 60 Est GFR (Non-Af Amer) > 60 Random Glucose 90 Calcium 9.8 Total Bilirubin 0.6 AST 33 ALT 24 Alkaline Phosphatase 79 Lactate Dehydrogenase 411 Total Creatine Kinase 259 H CK-MB (CK-2) 1.8 CK-MB (CK-2) % Cancelled Troponin I < 0.01 Total Protein 7.4 Albumin 4.1 Globulin 3.3 Albumin/Globulin Ratio 1.2 Assessment & Plan - Assessment and Plan (Free Text) Assessment: 47 year AA male with PMHx of Gout, GERD, and PEx2 presents with Left non- radiating, achy, 8/10 ankle pain x 1 day and sharp radiating chest pain that resolved in the ED. Plan: Chest pain R/O ACS ED: Zosyn, Vancomycin, Morphine 4 1st Trop: NEGATIVE EKG: NSR with Non-specific ST and T wave changes. Trend Trops Left Ankle Pain likely 2/2 to Gout Uric Acid levels Indomethacin Patient has prescription for colchicine when DC'd Hx of PE Left LE US: PENDING READ Home Eliquis 5mg BID Morbid Obesity Patient has already lost 80 pounds Reinforce importance of weight loss. Proph Protonix/Home Eliquis Dispo: Patient can likely go home today if troponins are negative. Patient seen and discussed with Attending Sedrick Prescott, PGY1
[2017-06-21 05:39] LABS: BASO # 0.01 K/mm3 (0.0-2.0); BASO % 0.1 % (0.0-3.0); EOS # 0.1 (0.0-0.7); EOS % 0.6 % (1.5-5.0); GRAN # 8.27 (1.4-6.5); GRAN % 73.8 % (50.0-68.0); HEMOGLOBIN 11.9 g/dL (14.0-18.0); LYMPH # 1.9 (1.2-3.4); LYMPH % 17.1 % (22.0-35.0); MEAN CELL VOLUME 82.7 fl (80.0-105.0); MEAN CORPUSCULAR HEMOGLOBIN 26.4 pg (25.0-35.0); MEAN PLATELET VOLUME 10.2 fl (7.0-11.0); MONO # 0.9 (0.1-0.6); MONO % 8.4 % (1.0-6.0); RBC 4.5 10^6/uL (3.5-6.1); RED CELL DISTRIBUTION WIDTH 13.1 % (11.5-14.5); WHITE BLOOD COUNT 11.2 10^3/ul (4.5-11.0)
[2017-06-21 06:13] LABS: ALB/GLOB RATIO 1.2 (1.1-1.8); ALBUMIN 3.7 g/dL (3.0-4.8); ALT/SGPT 24 U/L (7-56); AST/SGOT 28 U/L (17-59); BLOOD UREA NITROGEN 9 mg/dL (7-21); CALCIUM 9.5 mg/dL (8.4-10.5); GFR AFRICAN-AMERICAN > 60; GFR NON-AFRICAN AMERICAN > 60
[2017-06-21 07:53] VITALS: TEMP 99
[2017-06-21 07:57] LABS: INR 1.34 (0.93-1.08); PROTHROMBIN TIME 15.5 SECONDS (9.4-12.5)
--- NOTE | 2017-06-21 08:24 | RAD ---
HISTORY: chest pain COMPARISON: Portable chest 10/24/2016. FINDINGS: LUNGS: No active pulmonary disease. Chronic elevation left hemidiaphragm is noted mildly. PLEURA: No significant pleural effusion identified, no pneumothorax apparent. CARDIOVASCULAR: Normal. OSSEOUS STRUCTURES: No significant abnormalities. VISUALIZED UPPER ABDOMEN: Normal. OTHER FINDINGS: None. IMPRESSION: No interval acute cardiopulmonary disease appreciated. Chronic elevation left hemidiaphragm again evident.
--- NOTE | 2017-06-21 09:46 | CARD ---
APPROVED REPORT EKG Measurement Heart [id number] <Conclusion> Normal sinus rhythm Nonspecific ST and T wave abnormality Q in 3
[2017-06-21] MEDS ORDERED: Pantoprazole 40 mg EC Tab PO SCH (10:00)
[2017-06-21 12:06] VITALS: PULSE 71; RESP 17
[2017-06-21 12:08] VITALS: BP 115/62; O2SAT 98
--- NOTE | 2017-06-21 12:16 | CP.PCM.DIS ---
<Castillo Aguilar S - Last Filed: 06/21/17 13:10> Provider - Provider Date of Admission: 06/21/17 Attending physician: Dr. Jason Ramirez Primary care physician: Arabella Boogie MD Time Spent in preparation of Discharge (in minutes): 35 Diagnosis - Discharge Diagnosis (1) Left against medical advice Status: Acute (2) Chest pain Status: Acute (3) Gout attack Status: Acute Hospital Course - Lab Results Lab Results: Most Recent Lab Values WBC 11.2 10^3/ul (4.5-11.0) H 06/21/17 04:30 RBC 4.50 10^6/uL (3.5-6.1) 06/21/17 04:30 Hgb 11.9 g/dL (14.0-18.0) L 06/21/17 04:30 Hct 37.2 % (42.0-52.0) L 06/21/17 04:30 MCV 82.7 fl (80.0-105.0) 06/21/17 04:30 MCH 26.4 pg (25.0-35.0) 06/21/17 04:30 MCHC 32.0 g/dl (31.0-37.0) 06/21/17 04:30 RDW 13.1 % (11.5-14.5) 06/21/17 04:30 Plt Count 298 10^3/uL (120.0-450.0) 06/21/17 04:30 MPV 10.2 fl (7.0-11.0) 06/21/17 04:30 Gran % 73.8 % (50.0-68.0) H 06/21/17 04:30 Lymph % (Auto) 17.1 % (22.0-35.0) L 06/21/17 04:30 [place] % (Auto) 8.4 % (1.0-6.0) H 06/21/17 04:30 Eos % (Auto) 0.6 % (1.5-5.0) L 06/21/17 04:30 Baso % (Auto) 0.1 % (0.0-3.0) 06/21/17 04:30 Gran # 8.27 (1.4-6.5) H 06/21/17 04:30 Lymph # (Auto) 1.9 (1.2-3.4) 06/21/17 04:30 [place] # (Auto) 0.9 (0.1-0.6) H 06/21/17 04:30 Eos # (Auto) 0.1 (0.0-0.7) 06/21/17 04:30 Baso # (Auto) 0.01 K/mm3 (0.0-2.0) 06/21/17 04:30 PT 15.5 SECONDS (9.4-12.5) H 06/21/17 07:00 INR 1.34 (0.93-1.08) H 06/21/17 07:00 APTT 36.0 Seconds (25.1-36.5) 06/21/17 07:00 Sodium 140 mmol/L (132-148) 06/21/17 04:30 Potassium 3.9 mmol/L (3.6-5.0) 06/21/17 04:30 Chloride 100 mmol/L (98-107) 06/21/17 04:30 Carbon Dioxide 29 mmol/L (21-33) 06/21/17 04:30 Anion Gap 15 (10-20) 06/21/17 04:30 BUN 9 mg/dL (7-21) 06/21/17 04:30 Creatinine 1.0 mg/dl (0.8-1.5) 06/21/17 04:30 Est GFR ( Amer) > 60 06/21/17 04:30 Est GFR (Non-Af Amer) > 60 06/21/17 04:30 Random Glucose 99 mg/dL (70-110) 06/21/17 04:30 Uric Acid 6.8 mg/dL (3.5-8.5) 06/21/17 07:00 Calcium 9.5 mg/dL (8.4-10.5) 06/21/17 04:30 Total Bilirubin 0.6 mg/dL (0.2-1.3) 06/21/17 04:30 AST 28 U/L (17-59) 06/21/17 04:30 ALT 24 U/L (7-56) 06/21/17 04:30 Alkaline Phosphatase 73 U/L (38-126) 06/21/17 04:30 Lactate Dehydrogenase 411 U/L (333-699) 06/20/17 23:56 Total Creatine Kinase 259 U/L (35-230) H 06/20/17 23:56 CK-MB (CK-2) 1.8 ng/mL (0.0-3.6) 06/20/17 23:56 CK-MB (CK-2) % Cancelled 06/20/17 23:56 Troponin I < 0.01 ng/mL 06/21/17 04:30 Total Protein 6.8 g/dL (5.8-8.3) 06/21/17 04:30 Albumin 3.7 g/dL (3.0-4.8) 06/21/17 04:30 Globulin 3.1 gm/dL 06/21/17 04:30 Albumin/Globulin Ratio 1.2 (1.1-1.8) 06/21/17 04:30 Urine Color Yellow (YELLOW) 06/21/17 01:30 Urine Appearance Clear (CLEAR) 06/21/17 01:30 Urine pH 7.0 (4.7-8.0) 06/21/17 01:30 Ur Specific [place] <= 1.005 (1.005-1.035) 06/21/17 01:30 Urine Protein Negative mg/dL (<30 mg/dL) 06/21/17 01:30 Urine Glucose (UA) Negative mg/dL (NEGATIVE) 06/21/17 01:30 Urine Ketones Negative mg/dL (NEGATIVE) 06/21/17 01:30 Urine Blood Negative (NEGATIVE) 06/21/17 01:30 Urine Nitrate Negative (NEGATIVE) 06/21/17 01:30 Urine Bilirubin Negative (NEGATIVE) 06/21/17 01:30 Urine Urobilinogen 0.2 E.U./dL (<1 E.U./dL) 06/21/17 01:30 Ur Leukocyte Esterase Negative Sabina/uL (NEGATIVE) 06/21/17 01:30 - Hospital Course Hospital Course: Initial History of Present Illness: "47 year AA male with PMHx of Gout, GERD, and PEx2 (on eliquis) presents with Left non-radiating, achy, 8/10 ankle pain x 1 day. Patient states he took Motrin which resolved the pain. He states it feels just like his gout pain that he has had in the past. He also complained of sharp radiating chest pain ( began Monday) which resolved in the ED. He attributes his chest pain to "gas" . Patient stated that he was supposed to take Eliquis until last month. Patient states his PMD told him to continue taking the eliquis until the bottle is finish and that he would taper the dose afterwards. He missed his evening eliquis dose because he was told by the pharmacist not to take motrin while on eliquis." Hospital Course: Patient admitted for chest pain and to rule out an AL. Two sets of troponins were negative, lower extremity dopplers were negative. The patient declined to stay in the hospital for further testing. This action was against medical advice. This decision was made with informed refusal. The patient was told that additional testing was necessary. Explanation of the reasons why were discussed. The risks of leaving were explained to the patient and include, but are not limited to, worsening of known or currently unknown conditions, permanent disability and from undiagnosed or untreated conditions. The patient has the capacity to make this informed decision and understands my explanation of the current medical problem and risks of leaving. The patient voluntarily accepts these risks and signed an AMA form documenting our conversation. The patient was given the opportunity to ask questions and reconsider. The patient was encouraged to return to the Emergency Department at any time for further care. Patient instructed to follow up with his PMD and obtain an outpatient stress test. Discharge Exam - Head Exam Head Exam: ATRAUMATIC, NORMOCEPHALIC - Eye Exam Eye Exam: EOMI, Normal appearance - ENT Exam ENT Exam: Mucous Membranes Moist - Respiratory Exam Respiratory Exam: Clear to PA & Lateral, NORMAL BREATHING PATTERN. absent: Rales, Rhonchi, Wheezes - Cardiovascular Exam Cardiovascular Exam: REGULAR RHYTHM, +S1, +S2 - GI/Abdominal Exam GI & Abdominal Exam: Normal Bowel Sounds, Soft. absent: Tenderness Additional comments: Morbidly obese body habitus - Extremities Exam Extremities exam: pedal pulses present Additional comments: Bilateral non-pitting edema in the lower extremities - Neurological Exam Neurological exam: Alert, CN II-XII Intact, Oriented x3 - Psychiatric Exam Psychiatric exam: Normal Affect, Normal Mood - Skin Skin Exam: Dry, Warm Discharge Plan - Discharge Medications Prescriptions: Pantoprazole [Protonix EC Tab] 40 mg PO DAILY #7 ect predniSONE [predniSONE Tab] See Taper PO DAILY #21 tab - Follow Up Plan Condition: UNKNOWN Disposition: AGAINST MEDICAL ADVICE Instructions: Chest Pain (ED) Referrals: Arabella Boogie MD [Primary Care Provider] - <Jason Ramirez Tristan - Last Filed: 06/21/17 15:25> Provider - Provider Primary care physician: Arabella Boogie MD Hospital Course - Lab Results Lab Results: Most Recent Lab Values WBC 11.2 10^3/ul (4.5-11.0) H 06/21/17 04:30 RBC 4.50 10^6/uL (3.5-6.1) 06/21/17 04:30 Hgb 11.9 g/dL (14.0-18.0) L 06/21/17 04:30 Hct 37.2 % (42.0-52.0) L 06/21/17 04:30 MCV 82.7 fl (80.0-105.0) 06/21/17 04:30 MCH 26.4 pg (25.0-35.0) 06/21/17 04:30 MCHC 32.0 g/dl (31.0-37.0) 06/21/17 04:30 RDW 13.1 % (11.5-14.5) 06/21/17 04:30 Plt Count 298 10^3/uL (120.0-450.0) 06/21/17 04:30 MPV 10.2 fl (7.0-11.0) 06/21/17 04:30 Gran % 73.8 % (50.0-68.0) H 06/21/17 04:30 Lymph % (Auto) 17.1 % (22.0-35.0) L 06/21/17 04:30 [place] % (Auto) 8.4 % (1.0-6.0) H 06/21/17 04:30 Eos % (Auto) 0.6 % (1.5-5.0) L 06/21/17 04:30 Baso % (Auto) 0.1 % (0.0-3.0) 06/21/17 04:30 Gran # 8.27 (1.4-6.5) H 06/21/17 04:30 Lymph # (Auto) 1.9 (1.2-3.4) 06/21/17 04:30 [place] # (Auto) 0.9 (0.1-0.6) H 06/21/17 04:30 Eos # (Auto) 0.1 (0.0-0.7) 06/21/17 04:30 Baso # (Auto) 0.01 K/mm3 (0.0-2.0) 06/21/17 04:30 PT 15.5 SECONDS (9.4-12.5) H 06/21/17 07:00 INR 1.34 (0.93-1.08) H 06/21/17 07:00 APTT 36.0 Seconds (25.1-36.5) 06/21/17 07:00 Sodium 140 mmol/L (132-148) 06/21/17 04:30 Potassium 3.9 mmol/L (3.6-5.0) 06/21/17 04:30 Chloride 100 mmol/L (98-107) 06/21/17 04:30 Carbon Dioxide 29 mmol/L (21-33) 06/21/17 04:30 Anion Gap 15 (10-20) 06/21/17 04:30 BUN 9 mg/dL (7-21) 06/21/17 04:30 Creatinine 1.0 mg/dl (0.8-1.5) 06/21/17 04:30 Est GFR ( Amer) > 60 06/21/17 04:30 Est GFR (Non-Af Amer) > 60 06/21/17 04:30 Random Glucose 99 mg/dL (70-110) 06/21/17 04:30 Uric Acid 6.8 mg/dL (3.5-8.5) 06/21/17 07:00 Calcium 9.5 mg/dL (8.4-10.5) 06/21/17 04:30 Total Bilirubin 0.6 mg/dL (0.2-1.3) 06/21/17 04:30 AST 28 U/L (17-59) 06/21/17 04:30 ALT 24 U/L (7-56) 06/21/17 04:30 Alkaline Phosphatase 73 U/L (38-126) 06/21/17 04:30 Lactate Dehydrogenase 411 U/L (333-699) 06/20/17 23:56 Total Creatine Kinase 259 U/L (35-230) H 06/20/17 23:56 CK-MB (CK-2) 1.8 ng/mL (0.0-3.6) 06/20/17 23:56 CK-MB (CK-2) % Cancelled 06/20/17 23:56 Troponin I < 0.01 ng/mL 06/21/17 04:30 Total Protein 6.8 g/dL (5.8-8.3) 06/21/17 04:30 Albumin 3.7 g/dL (3.0-4.8) 06/21/17 04:30 Globulin 3.1 gm/dL 06/21/17 04:30 Albumin/Globulin Ratio 1.2 (1.1-1.8) 06/21/17 04:30 Urine Color Yellow (YELLOW) 06/21/17 01:30 Urine Appearance Clear (CLEAR) 06/21/17 01:30 Urine pH 7.0 (4.7-8.0) 06/21/17 01:30 Ur Specific [place] <= 1.005 (1.005-1.035) 06/21/17 01:30 Urine Protein Negative mg/dL (<30 mg/dL) 06/21/17 01:30 Urine Glucose (UA) Negative mg/dL (NEGATIVE) 06/21/17 01:30 Urine Ketones Negative mg/dL (NEGATIVE) 06/21/17 01:30 Urine Blood Negative (NEGATIVE) 06/21/17 01:30 Urine Nitrate Negative (NEGATIVE) 06/21/17 01:30 Urine Bilirubin Negative (NEGATIVE) 06/21/17 01:30 Urine Urobilinogen 0.2 E.U./dL (<1 E.U./dL) 06/21/17 01:30 Ur Leukocyte Esterase Negative Sabina/uL (NEGATIVE) 06/21/17 01:30 Attending/Attestation - Attestation I have personally seen and examined this patient.: Yes I have fully participated in the care of the patient.: Yes I have reviewed all pertinent clinical information, including history, physical exam and plan: Yes Notes (Text): Patient left AMA.
--- NOTE | 2017-06-21 18:17 | US ---
PROCEDURE: Left lower extremity venous US HISTORY: Leg pain and swelling. Evaluate for DVT. PHYSICIAN(S): Wayne Townsend MD. TECHNIQUE: Duplex sonography and color-flow Doppler with graded compression were used to evaluate the deep venous system of the left lower extremity. The exam is limited by body habitus and edema. The tibial veins are not well seen FINDINGS: The visualized deep venous system of the left lower extremity is sonographically normal and compressible. Normal wave forms and augmentation are seen. There is no sonographic evidence for deep venous thrombosis in the visualized segments of the left lower extremity. IMPRESSION: 1. No sonographic evidence for deep venous thrombosis in the visualized segments of the left lower extremity. 2. Limited study
== END 2017-06-21 12:00 | disposition left against medical advice (07) ==
LOC: ED 23:12 → UNDOADMOB 06-21 03:02 → ERH 06-21 03:02 → ED 06-21 12:00
DX: R07.9 Chest pain, unspecified (principal); L03.116 Cellulitis of left lower limb; I10 Essential (primary) hypertension; M10.9 Gout, unspecified
CPT/HCPCS: 71045; 80053; 81003; 82550; 82553; 83615; 84484; 84550; 85025; 85610; 85730; 87040; 93005; 93971; 96365; 96367; 96375; 99284; J1170; J2270; J2543

== ENCOUNTER 2017-10-10 15:15 | Emergency (ER) | payer MEDICAID ==
[2017-10-10 15:16] VITALS: BMI 53.2
[2017-10-10 15:29] VITALS: RESP 16; TEMP 97.1; O2SAT 98
--- NOTE | 2017-10-10 16:10 | ED PDOC ---
Arrival/HPI - General Chief Complaint: Lower Extremity Problem/Injury Time Seen by Provider: 10/10/17 15:55 Historian: Patient - History of Present Illness Narrative History of Present Illness (Text): 10/10/17 16:00 Pt is a 46 y/o male, with a pmh of gout, who c/o possible gout pain x 3-4 days of the middle of the left foot that feels like fire under his foot. Pt states that he was given a medication for gout pain before but cannot recall the name. Denies chest pain or shortness of breath, fever, chills, n/v/d, palpitation, numbness or tingling, no other medical or psychological complaints. Time/Duration: < week Symptom Onset: Sudden Symptom Course: Intermittent Quality: Pressure, Burning Severity Level: 4 Activities at Onset: Rest Context: Standing, Walking Past Medical History - Provider Review Nursing Documentation Reviewed: Yes - Travel History Have you recently traveled outside [place] w/in the past 3 mons?: No - Infectious Disease Hx of Infectious Diseases: None - Tetanus Immunization Tetanus Immunization: Unknown - Cardiac Hx Cardiac Disorders: Yes Hx Hypertension: Yes - Pulmonary Hx Respiratory Disorders: Yes Hx Sleep Apnea: Yes - Neurological Hx Neurological Disorder: Yes Hx Dizziness: Yes - HEENT Hx HEENT Disorder: No - Renal Hx Renal Disorder: No - Endocrine/Metabolic Hx Endocrine Disorders: No - Hematological/Oncological Hx Blood Disorders: No - Integumentary Hx Dermatological Disorder: No - Musculoskeletal/Rheumatological Hx Musculoskeletal Disorders: Yes Hx Gout: Yes - Gastrointestinal Hx Gastrointestinal Disorders: Yes (obese) - Genitourinary/Gynecological Hx Genitourinary Disorders: No - Psychiatric Hx Psychophysiologic Disorder: No Hx Substance Use: No - Surgical History Hx Orthopedic Surgery: Yes (ORIF LEFT HIP pins isaac hips) - Anesthesia Hx Anesthesia: Yes Hx Anesthesia Reactions: No Hx Malignant Hyperthermia: No - Suicidal Assessment Feels Threatened In Home Enviroment: No Family/Social History - Physician Review Nursing Documentation Reviewed: Yes Family/Social History: Unknown Family HX Smoking Status: Never Smoked Hx Alcohol Use: No Hx Substance Use: No Hx Substance Use Treatment: No Allergies/Home Meds Allergies/Adverse Reactions: Allergies hydrochlorothiazide [From Hyzaar] Allergy (Verified 10/10/17 15:24) ANAPHYLAXIS losartan potassium [From Hyzaar] Allergy (Verified 10/10/17 15:24) ANAPHYLAXIS amlodipine besylate [From [facility]] Adverse Reaction (Verified 10/10/17 15:24) HEADACHE pt feels jittery Home Medications: Home Meds Medication Instructions Recorded Confirmed Nebivolol [Bystolic] 5 mg PO DAILY 07/05/16 10/10/17 Review of Systems - Review of Systems Constitutional: Normal. absent: Fatigue, Fevers Eyes: Normal ENT: Normal Respiratory: Normal Cardiovascular: Normal Gastrointestinal: Normal Genitourinary Male: Normal Musculoskeletal: Normal, Other (left foot pain) Skin: Normal Neurological: Normal. absent: Headache Endocrine: Normal Hemo/Lymphatic: Normal Psychiatric: Normal Physical Exam Vital Signs Reviewed: Yes Vital Signs Temp Pulse Resp BP Pulse Ox 10/10/17 17:54 97.1 F L 70 16 139/75 98 10/10/17 15:25 97.1 F L 69 16 143/78 98 Temperature: Afebrile Blood Pressure: Normal Pulse: Regular Respiratory Rate: Normal Appearance: Positive for: Well-Appearing, Non-Toxic, Comfortable Pain Distress: Mild Mental Status: Positive for: Alert and Oriented X 3 - Systems Exam Neck: Present: Normal Range of Motion. No: Meningeal Signs, MIDLINE TENDERNESS Respiratory/Chest: Present: Clear to Auscultation, Good Air Exchange. No: Respiratory Distress, Accessory Muscle Use Cardiovascular: Present: Regular Rate and Rhythm, Normal S1, S2. No: Murmurs Abdomen: Present: Normal Bowel Sounds. No: Tenderness, Distention, Peritoneal Signs Back: Present: Normal Inspection. No: CVA Tenderness Upper Extremity: Present: Normal Inspection. No: Cyanosis, Edema Lower Extremity: Present: Normal Inspection, NORMAL PULSES, Normal ROM, Capillary Refill < 2 s. No: Edema, CALF TENDERNESS, Peter's Sign, Tenderness, Swelling, Erythema, Deformity Neurological: Present: GCS=15, CN II-XII Intact, Speech Normal, Motor Func Grossly Intact, Normal Sensory Function, Gait Normal Skin: Present: Warm, Dry, Normal Color. No: Rashes Psychiatric: Present: Alert, Oriented x 3, Normal Insight, Normal Concentration Medical Decision Making ED Course and Treatment: 10/10/17 16:37 Impression Pt is a 46 y/o male, with a pmh of gout, who c/o possible gout pain x 3-4 days of the middle of the left foot that feels like fire under his foot. Pt morbidly obese with Left pes planus with plantar wart on arch, no erythema or edema or change in skin integrity; no warmth appreciated on palpation Ddx: Gout flare-up, diabetic neuropathy, plantar fasciitis Plan labs colchicine 1.2mg STAT assess and dispo Progress Note Colchicine administered Labs pending to ascertain infectious process 10/10/17 16:48 Labs wnl: Glucose of 85 UA negative Advised 2 days of cochicine 0.6mg bid, follow gout diet and f/u with PMD - Lab Interpretations Lab Results: 10/10/17 17:17 10/10/17 17:17 Lab Results 10/10/17 17:55: Urine Color Yellow, Urine Appearance Clear, Urine pH 6.5, Ur Specific [place] 1.010, Urine Protein Negative, Urine Glucose (UA) Negative, Urine Ketones Negative, Urine Blood Negative, Urine Nitrate Negative, Urine Bilirubin Negative, Urine Urobilinogen 0.2, Ur Leukocyte Esterase Negative 10/10/17 17:17: Sodium 144, Potassium 4.3, Chloride 103, Carbon Dioxide 30, Anion Gap 15, BUN 12, Creatinine 1.0, Est GFR ( Amer) > 60, Est GFR (Non- Af Amer) > 60, Random Glucose 85, Calcium 9.4, Total Bilirubin 0.3, AST 29, ALT 21, Alkaline Phosphatase 92, Total Protein 7.6, Albumin 4.2, Globulin 3.4, Albumin/Globulin Ratio 1.2 10/10/17 17:17: WBC 9.4, RBC 5.04, Hgb 13.6 L, Hct 41.6 L, MCV 82.5, MCH 27.0, MCHC 32.7, RDW 13.0, Plt Count 318, MPV 10.1, Gran % 56.9, Lymph % (Auto) 32.3, [place] % (Auto) 9.3 H, Eos % (Auto) 1.2 L, Baso % (Auto) 0.3, Gran # 5.34, Lymph # (Auto) 3.0, [place] # (Auto) 0.9 H, Eos # (Auto) 0.1, Baso # (Auto) 0.03 - Medication Orders Current Medication Orders: Discontinued Medications Colchicine (Colocrys) 1.2 mg PO STAT STA Stop: 10/10/17 16:32 Last Admin: 10/10/17 16:47 Dose: 1.2 mg Disposition/Present on Arrival - Present on Arrival Any Indicators Present on Arrival: Yes History of DVT/PE: Yes History of Uncontrolled Diabetes: No Urinary Catheter: No History of Decub. Ulcer: No History Surgical Site Infection Following: None - Disposition Have Diagnosis and Disposition been Completed?: Yes Diagnosis: Gout attack, Left foot pain Disposition: HOME/ ROUTINE Disposition Time: 17:44 Patient Plan: Discharge Condition: STABLE Discharge Instructions (ExitCare): Lifestyle Changes to Manage Gout, Gout (DC) Additional Instructions: Juan J, thank you for letting us take care of you today. Your provider was THIEN Carbajal. You were treated for Gout of the left foot. The emergency medical care you received today was directed at your acute symptoms. If you were prescribed any medication, please fill it and take as directed. It may take several days for your symptoms to resolve. Return to the Emergency Department if your symptoms worsen, do not improve, or if you have any other problems. Take Colchicine 0.6mg twice a day for 2 days. Please see your doctor in the next few days Please contact your doctor or call one of the physicians/clinics you have been referred to that are listed on the Patient Visit Information form that is included in your discharge packet. Bring any paperwork you were given at discharge with you along with any medications you are taking to your follow up visit. Our treatment cannot replace ongoing medical care by a primary care provider (PCP) outside of the emergency department. Thank you for allowing the [facility] team to be part of your care today. If you had a blood, urine, or wound culture: It will take several days for the results, if any change in treatment is needed we will contact you. Prescriptions: Colchicine 0.6 mg PO BID 3 Days #6 tablet Referrals: Arabelal Boogie MD [Primary Care Provider] - Follow up with primary Forms: [employer] (Kyrgyz), WORK NOTE
[2017-10-10 17:24] LABS: BASO # 0.03 K/mm3 (0.0-2.0); BASO % 0.3 % (0.0-3.0); EOS # 0.1 (0.0-0.7); EOS % 1.2 % (1.5-5.0); GRAN # 5.34 (1.4-6.5); GRAN % 56.9 % (50.0-68.0); HEMOGLOBIN 13.6 g/dL (14.0-18.0); LYMPH % 32.3 % (22.0-35.0); MEAN CELL VOLUME 82.5 fl (80.0-105.0); MEAN CORPUSCULAR HGB CONC 32.7 g/dl (31.0-37.0); MEAN PLATELET VOLUME 10.1 fl (7.0-11.0); MONO # 0.9 (0.1-0.6); MONO % 9.3 % (1.0-6.0); RBC 5.04 10^6/uL (3.5-6.1); WHITE BLOOD COUNT 9.4 10^3/ul (4.5-11.0)
[2017-10-10 17:36] LABS: ALB/GLOB RATIO 1.2 (1.1-1.8); ALBUMIN 4.2 g/dL (3.0-4.8); ALT/SGPT 21 U/L (7-56); AST/SGOT 29 U/L (17-59); BLOOD UREA NITROGEN 12 mg/dL (7-21); CALCIUM 9.4 mg/dL (8.4-10.5); GFR AFRICAN-AMERICAN > 60; GFR NON-AFRICAN AMERICAN > 60
[2017-10-10 18:04] VITALS: BP 139/75; PULSE 70
[2017-10-10 18:14] LABS: PH,URINE 6.5 (4.7-8.0); URINE BILIRUBIN NEGATIVE (NEGATIVE); URINE BLOOD NEGATIVE (NEGATIVE); URINE GLUCOSE (UA) NEGATIVE (NEGATIVE); URINE LEUKOCYTE ESTERASE NEGATIVE Leu/uL (NEGATIVE); URINE PROTEIN NEGATIVE mg/dL (<30 mg/dL); URINE UROBILINOGEN 0.2 E.U./dL (<1 E.U./dL)
[2017-10-10 18:16] LABS: URINE APPEARANCE CLEAR (CLEAR); URINE COLOR YELLOW (YELLOW)
== END 2017-10-10 17:54 | disposition home or self-care (01) ==
LOC: ED 15:15
DX: M10.9 Gout, unspecified (principal); M79.672 Pain in left foot; I10 Essential (primary) hypertension

== ENCOUNTER 2017-11-03 20:58 | Emergency (ER) | payer MEDICAID ==
[2017-11-03 20:59] VITALS: BMI 53.2
[2017-11-03 21:07] VITALS: TEMP 98.3
[2017-11-03 21:26] VITALS: RESP 18
--- NOTE | 2017-11-03 21:34 | ED PDOC ---
Arrival/HPI - General Chief Complaint: Shortness Of Breath Time Seen by Provider: 11/03/17 21:28 Historian: Patient - History of Present Illness Narrative History of Present Illness (Text): 11/03/17 21:30 A 47 year old male, morbidly obese, whose past medical history includes hypertension, pulmonary embolism on Eliquis, presents to the emergency department complaining of intermittent shortness of breath prior to arrival. The patient states that his symptoms resolved on their own upon arrival to the emergency department, but he expressed concern since he has history of a PE. The patient notes that he just started on a 21 day cleanse and notes that he ate spaghetti this evening. The patient denies fevers, chills, headache, dizziness, chest pain, cough, abdominal pain, nausea, vomiting, diarrhea, back pain, neck pain, urinary/bowel changes, or any other complaint. Time/Duration: Prior to Arrival Symptom Onset: Sudden Symptom Course: Resolved Activities at Onset: Rest, Light Context: Home Past Medical History - Provider Review Nursing Documentation Reviewed: Yes - Infectious Disease Hx of Infectious Diseases: None - Tetanus Immunization Tetanus Immunization: Unknown - Cardiac Hx Cardiac Disorders: Yes Hx Hypertension: Yes - Pulmonary Hx Respiratory Disorders: Yes Hx Sleep Apnea: Yes - Neurological Hx Neurological Disorder: Yes Hx Dizziness: Yes - HEENT Hx HEENT Disorder: No - Renal Hx Renal Disorder: No - Endocrine/Metabolic Hx Endocrine Disorders: No - Hematological/Oncological Hx Blood Disorders: No - Integumentary Hx Dermatological Disorder: No - Musculoskeletal/Rheumatological Hx Musculoskeletal Disorders: Yes Hx Gout: Yes - Gastrointestinal Hx Gastrointestinal Disorders: Yes (obese) - Genitourinary/Gynecological Hx Genitourinary Disorders: No - Psychiatric Hx Psychophysiologic Disorder: No Hx Substance Use: No - Surgical History Hx Orthopedic Surgery: Yes (ORIF LEFT HIP pins isaac hips) - Anesthesia Hx Anesthesia: Yes Hx Anesthesia Reactions: No Hx Malignant Hyperthermia: No - Suicidal Assessment Feels Threatened In Home Enviroment: No Family/Social History - Physician Review Nursing Documentation Reviewed: Yes Family/Social History: No Known Family HX Smoking Status: Never Smoked Hx Alcohol Use: No Hx Substance Use: No Hx Substance Use Treatment: No Allergies/Home Meds Allergies/Adverse Reactions: Allergies hydrochlorothiazide [From Hyzaar] Allergy (Verified 11/03/17 21:01) ANAPHYLAXIS losartan potassium [From Hyzaar] Allergy (Verified 11/03/17 21:01) ANAPHYLAXIS amlodipine besylate [From [facility]] Adverse Reaction (Verified 11/03/17 21:01) HEADACHE pt feels jittery Home Medications: Home Meds Medication Instructions Recorded Confirmed Nebivolol [Bystolic] 5 mg PO DAILY 07/05/16 11/03/17 Review of Systems - Physician Review All systems were reviewed & negative as marked: Yes - Review of Systems Constitutional: absent: Fevers, Night Sweats Respiratory: SOB. absent: Cough Cardiovascular: absent: Chest Pain Gastrointestinal: absent: Abdominal Pain, Stool Changes, Diarrhea, Nausea, Vomiting Genitourinary Male: absent: Urinary Output Changes Musculoskeletal: absent: Back Pain, Neck Pain Neurological: absent: Headache, Dizziness Physical Exam Vital Signs Reviewed: Yes Vital Signs Temp Pulse Resp BP Pulse Ox 11/03/17 23:16 61 18 149/82 100 11/03/17 21:23 69 18 159/85 H 99 11/03/17 21:15 20 99 11/03/17 21:02 98.3 F 68 20 166/90 H 96 Temperature: Afebrile Blood Pressure: Hypertensive Pulse: Regular Respiratory Rate: Normal Appearance: Positive for: Well-Appearing, Non-Toxic, Comfortable Pain Distress: None Mental Status: Positive for: Alert and Oriented X 3 - Systems Exam Head: Present: Atraumatic, Normocephalic Pupils: Present: PERRL Extroacular Muscles: Present: EOMI Conjunctiva: Present: Normal Mouth: Present: Moist Mucous Membranes Neck: Present: Normal Range of Motion. No: JVD, Lymphadenopathy Respiratory/Chest: Present: Clear to Auscultation, Good Air Exchange, Other ( Patient's breathing is NOT labored.). No: Respiratory Distress, Accessory Muscle Use Cardiovascular: Present: Regular Rate and Rhythm (NSR at 68 BPM), Normal S1, S2. No: Murmurs Abdomen: No: Tenderness, Distention, Peritoneal Signs, Rebound, Guarding, Mass/ Organomegaly Back: Present: Normal Inspection Upper Extremity: Present: Normal Inspection. No: Cyanosis, Edema Lower Extremity: Present: Edema (Bipedal trace edema). No: CALF TENDERNESS ( Patient denies calf tenderness.), Peter's Sign Neurological: Present: GCS=15, CN II-XII Intact, Speech Normal (Patient speaking in full sentences.) Skin: Present: Warm, Dry, Normal Color. No: Rashes Psychiatric: Present: Alert, Oriented x 3, Normal Insight, Normal Concentration Medical Decision Making ED Course and Treatment: 11/03/17 21:37 Impression: A 47 year old male presents to the emergency department complaining of shortness of breath prior to arrival which resolved upon arrival to emergency department. Plan: -- EKG -- Chest X-ray -- Labs -- Urinalysis -- Reassess and disposition Progress Notes: 11/03/17 21:39 EKG: Ordered, reviewed, and independently interpreted the EKG. Rate : 70 BPM Rhythm : NSR Interpretation : No ectopy. All intervals within normal limits. Axes within normal limits. No acute ST-T changes. Normal EKG. 11/03/17 23:01: Chest X-ray read and interpreted by me shows no active pulmonary disease cardiac silhouette looks within normal limits. 11/03/17 23:03 On re-evaluation, patient feels better and is in no acute distress. Labs within normal limits, D-Dimer under 200. Will discharge patient home. I have discussed the results and plan with the patient, who expresses understanding. Patient in agreement with plan to be discharged home. Patient whose diagnosis is dyspnea, is stable for discharge. Patient was instructed to follow up with physician or return if symptoms worsen or new concerning symptoms arise. - Lab Interpretations Lab Results: 11/03/17 21:35 11/03/17 21:35 Lab Results 11/03/17 22:13: Urine Color Yellow, Urine Appearance Clear, Urine pH 6.5, Ur Specific [place] <= 1.005, Urine Protein Negative, Urine Glucose (UA) Negative, Urine Ketones Negative, Urine Blood Negative, Urine Nitrate Negative, Urine Bilirubin Negative, Urine Urobilinogen 0.2, Ur Leukocyte Esterase Negative 11/03/17 21:35: D-Dimer, Quantitative < 200 11/03/17 21:35: Sodium 140, Potassium 4.0, Chloride 102, Carbon Dioxide 28, Anion Gap 15, BUN 13, Creatinine 0.9, Est GFR ( Amer) > 60, Est GFR (Non- Af Amer) > 60, Random Glucose 94, Uric Acid 6.5, Calcium 9.4, Magnesium 1.8, Total Bilirubin 0.6, AST 29, ALT 23, Alkaline Phosphatase 82, Lactate Dehydrogenase 389, Total Creatine Kinase 213, Troponin I < 0.01, NT-Pro-B Natriuret Pep 136, Total Protein 7.1, Albumin 3.9, Globulin 3.2, Albumin/ Globulin Ratio 1.2 11/03/17 21:35: WBC 9.4, RBC 4.69, Hgb 12.5 L, Hct 38.0 L, MCV 81.0, MCH 26.7, MCHC 32.9, RDW 12.7, Plt Count 223, MPV 9.9, Gran % 41.3 L, Lymph % (Auto) 47.9 H, [place] % (Auto) 8.8 H, Eos % (Auto) 1.6, Baso % (Auto) 0.4, Gran # 3.87, Lymph # (Auto) 4.5 H, [place] # (Auto) 0.8 H, Eos # (Auto) 0.2, Baso # (Auto) 0.04 I have reviewed the lab results: Yes - RAD Interpretation Radiology Orders: 11/03/17 21:30 CHEST PORTABLE [RAD] Stat - EKG Interpretation Interpreted by ED Physician: Yes Type: 12 lead EKG - Medication Orders Current Medication Orders: Discontinued Medications Acetaminophen (Tylenol 325mg Tab) 975 mg PO STAT STA Stop: 11/03/17 23:14 Last Admin: 11/03/17 23:15 Dose: 975 mg MAR Pain/Vitals Document 11/03/17 23:15 AD (Rec: 11/03/17 23:16 AD [id number]) Pain Reassessment Is This A Pain ReAssessment? No Presence of Pain Presence of Pain Yes Pain Scale Used Pain Scale Used Numeric Location Left, Right or Bilateral Left Pain Location Body Site Knee Intensity 5 Scale Used Numeric - Scribe Statement The provider has reviewed the documentation as recorded by the Charan Davis Provider Scribe Attestation: All medical record entries made by the Charan were at my direction and personally dictated by me. I have reviewed the chart and agree that the record accurately reflects my personal performance of the history, physical exam, medical decision making, and the department course for this patient. I have also personally directed, reviewed, and agree with the discharge instructions and disposition. Disposition/Present on Arrival - Present on Arrival Any Indicators Present on Arrival: No History of DVT/PE: Yes History of Uncontrolled Diabetes: No Urinary Catheter: No History of Decub. Ulcer: No History Surgical Site Infection Following: None - Disposition Have Diagnosis and Disposition been Completed?: Yes Diagnosis: Dyspnea Disposition: HOME/ ROUTINE Disposition Time: 00:14 Condition: FAIR Discharge Instructions (ExitCare): Shortness of Breath (Dyspnea) (DC) Referrals: Arabella Boogie MD [Primary Care Provider] - Follow up with primary Forms: [employer] (Belarusian)
[2017-11-03 21:50] LABS: BASO # 0.04 K/mm3 (0.0-2.0); BASO % 0.4 % (0.0-3.0); EOS # 0.2 (0.0-0.7); EOS % 1.6 % (1.5-5.0); GRAN # 3.87 (1.4-6.5); GRAN % 41.3 % (50.0-68.0); HEMOGLOBIN 12.5 g/dL (14.0-18.0); LYMPH # 4.5 (1.2-3.4); LYMPH % 47.9 % (22.0-35.0); MEAN CORPUSCULAR HEMOGLOBIN 26.7 pg (25.0-35.0); MEAN CORPUSCULAR HGB CONC 32.9 g/dl (31.0-37.0); MEAN PLATELET VOLUME 9.9 fl (7.0-11.0); MONO # 0.8 (0.1-0.6); MONO % 8.8 % (1.0-6.0); RBC 4.69 10^6/uL (3.5-6.1); RED CELL DISTRIBUTION WIDTH 12.7 % (11.5-14.5); WHITE BLOOD COUNT 9.4 10^3/ul (4.5-11.0)
[2017-11-03 21:55] LABS: ALB/GLOB RATIO 1.2 (1.1-1.8); ALBUMIN 3.9 g/dL (3.0-4.8); ALT/SGPT 23 U/L (7-56); AST/SGOT 29 U/L (17-59); BLOOD UREA NITROGEN 13 mg/dL (7-21); CALCIUM 9.4 mg/dL (8.4-10.5); GFR AFRICAN-AMERICAN > 60; GFR NON-AFRICAN AMERICAN > 60; URIC ACID 6.5 mg/dL (3.5-8.5)
[2017-11-03 22:06] LABS: B-TYPE NATRIURETIC PEPTIDE 136 pg/mL (0-450); TROPONIN I < 0.01 ng/mL
[2017-11-03 22:38] LABS: PH,URINE 6.5 (4.7-8.0); URINE BILIRUBIN NEGATIVE (NEGATIVE); URINE BLOOD NEGATIVE (NEGATIVE); URINE GLUCOSE (UA) NEGATIVE (NEGATIVE); URINE LEUKOCYTE ESTERASE NEGATIVE Leu/uL (NEGATIVE); URINE PROTEIN NEGATIVE mg/dL (<30 mg/dL); URINE UROBILINOGEN 0.2 E.U./dL (<1 E.U./dL)
[2017-11-03 22:39] LABS: URINE APPEARANCE CLEAR (CLEAR); URINE COLOR YELLOW (YELLOW)
[2017-11-03 23:17] VITALS: BP 149/82; PULSE 61; O2SAT 100
--- NOTE | 2017-11-04 09:11 | RAD ---
HISTORY: Sepsis Patient COMPARISON: 06/21/2017 FINDINGS: LUNGS: No active pulmonary disease. PLEURA: No significant pleural effusion identified, no pneumothorax apparent. CARDIOVASCULAR: No radiographic findings to suggest acute or significant cardiovascular disease. OSSEOUS STRUCTURES: No significant abnormalities. VISUALIZED UPPER ABDOMEN: Normal. OTHER FINDINGS: None. IMPRESSION: No active disease. No significant interval change compared to the prior examination(s).
--- NOTE | 2017-11-04 22:48 | CARD ---
APPROVED REPORT EKG Measurement Heart [id number] <Conclusion> Normal sinus rhythm Normal ECG
== END 2017-11-03 23:17 | disposition home or self-care (01) ==
LOC: ED 20:58
DX: R06.00 Dyspnea, unspecified (principal); I10 Essential (primary) hypertension; Z86.711 Personal history of pulmonary embolism; Z79.01 Long term (current) use of anticoagulants

== ENCOUNTER 2017-11-29 05:13 | Emergency (ER) | payer MEDICAID ==
[2017-11-29 05:28] VITALS: BMI 55.7
--- NOTE | 2017-11-29 05:50 | ED PDOC ---
Arrival/HPI <Erick Ocasio - Last Filed: 11/29/17 07:07> <Elida Tom - Last Filed: 11/29/17 07:11> - General Chief Complaint: Cough, Cold, Congestion Time Seen by Provider: 11/29/17 05:39 - History of Present Illness Narrative History of Present Illness (Text): 47 year old male with PMH of PEx2, hypertension, GERD, and gout presents with 3 weeks of right foot swelling. The swelling went down after he drank water and celery juice. The swelling once again worsened when he ate salmon and fried potatoes 3 days ago. Patient also complains of a mild cough with clear sputum. Patient reports very mild shortness of breath. On presentation, patient's O2 stat is 98%. Patient denies chest pain, nausea, vomiting, constipation, diarrhea , abdominal pain, headache, dizziness, and fever. (Elida Tom) Past Medical History - Provider Review Nursing Documentation Reviewed: Yes - Infectious Disease Hx of Infectious Diseases: None - Tetanus Immunization Tetanus Immunization: Unknown - Cardiac Hx Cardiac Disorders: Yes Hx Hypertension: Yes - Pulmonary Hx Respiratory Disorders: Yes Hx Sleep Apnea: Yes - Neurological Hx Neurological Disorder: Yes Hx Dizziness: Yes - HEENT Hx HEENT Disorder: No - Renal Hx Renal Disorder: No - Endocrine/Metabolic Hx Endocrine Disorders: No - Hematological/Oncological Hx Blood Disorders: No - Integumentary Hx Dermatological Disorder: No - Musculoskeletal/Rheumatological Hx Musculoskeletal Disorders: Yes Hx Gout: Yes - Gastrointestinal Hx Gastrointestinal Disorders: Yes (obese) - Genitourinary/Gynecological Hx Genitourinary Disorders: No - Psychiatric Hx Psychophysiologic Disorder: No Hx Substance Use: No - Surgical History Hx Orthopedic Surgery: Yes (ORIF LEFT HIP pins isaac hips) - Anesthesia Hx Anesthesia: Yes Hx Anesthesia Reactions: No Hx Malignant Hyperthermia: No - Suicidal Assessment Feels Threatened In Home Enviroment: No <Elida Tom - Last Filed: 11/29/17 07:11> Family/Social History - Physician Review Nursing Documentation Reviewed: Yes Family/Social History: Unknown Family HX Smoking Status: Never Smoked Hx Alcohol Use: No Hx Substance Use: No Hx Substance Use Treatment: No <Elida Tom - Last Filed: 11/29/17 07:11> Allergies/Home Meds <Erick Ocasio - Last Filed: 11/29/17 07:07> <Paulina Tomevgenyigor - Last Filed: 11/29/17 07:11> Allergies/Adverse Reactions: Allergies hydrochlorothiazide [From Hyzaar] Allergy (Verified 11/29/17 05:32) ANAPHYLAXIS losartan potassium [From Hyzaar] Allergy (Verified 11/29/17 05:32) ANAPHYLAXIS amlodipine besylate [From Norvasc] Adverse Reaction (Verified 11/29/17 05:32) HEADACHE pt feels jittery Home Medications: Home Meds Medication Instructions Recorded Confirmed Nebivolol [Bystolic] 5 mg PO DAILY 07/05/16 11/03/17 Review of Systems - Review of Systems Constitutional: Normal Eyes: Normal ENT: Normal Respiratory: SOB (mild), Cough (mild ), Sputum (clear) Cardiovascular: Normal. absent: Chest Pain, Palpitations Gastrointestinal: Normal. absent: Abdominal Pain, Constipation, Diarrhea, Nausea, Vomiting Genitourinary Male: Normal. absent: Dysuria, Frequency, Hematuria Musculoskeletal: Other (swelling of bilateral lower extremities. Severe swelling of right foot.) Skin: Normal Neurological: Normal <RamirojorgeElida - Last Filed: 11/29/17 07:11> Physical Exam <Erick Ocasio - Last Filed: 11/29/17 07:07> Vital Signs Reviewed: Yes Temperature: Afebrile Blood Pressure: Normal Pulse: Regular Respiratory Rate: Normal Appearance: Positive for: Well-Appearing Pain Distress: None Mental Status: Positive for: Alert and Oriented X 3 - Systems Exam Head: Present: Atraumatic, Normocephalic Pupils: Present: PERRL Extroacular Muscles: Present: EOMI Nose (External): Present: Atraumatic Respiratory/Chest: Present: Clear to Auscultation, Good Air Exchange. No: Respiratory Distress, Accessory Muscle Use Cardiovascular: Present: Regular Rate and Rhythm Abdomen: Present: Normal Bowel Sounds. No: Tenderness, Distention Upper Extremity: Present: Normal Inspection, Normal ROM, NORMAL PULSES Lower Extremity: Present: Edema (bilaterally +1 edema.), Swelling (severe swelling of right foot. no erythema, but warmth). No: Peter's Sign, Erythema Neurological: Present: GCS=15, CN II-XII Intact, Speech Normal, Motor Func Grossly Intact Skin: Present: Warm, Dry, Normal Color Psychiatric: Present: Alert, Oriented x 3, Normal Insight, Normal Concentration <Elida Tom - Last Filed: 11/29/17 07:11> Vital Signs Temp Pulse Resp BP Pulse Ox 11/29/17 05:40 98.8 F 74 18 139/78 98 Medical Decision Making <Erick Ocasio - Last Filed: 11/29/17 07:07> <Elida Tom - Last Filed: 11/29/17 07:11> ED Course and Treatment: 11/29/17 05:54 Juan J Landry is a 47 year old male who presents to the emergency department for a complaint of 3 day duration hypertension and gout on the right foot and swelling. In agreement with resident note, which includes further HPI details. Patient was seen and evaluated with resident, came up with plan and treatment together. (Erick Ocasio) Impression: 47 year old male with PMH of PEx2, GERD, hypertension and gout presents with 3 weeks of right foot swelling and mild cough and shortness of breath. Assessment: gout vs. DVT vs. thrombophlebitis vs. swelling 2/2 to CHF or CKD Doubt PE, pneumonia Plan: CBC, CMP: to rule out anemia as cause of shortness of breath, and CMP to rule out electrolyte abnormalities. Chest X-ray: to rule out pneumonia, pneumothorax D-dimer: to rule out DVT Doppler venous U/S of bilateral lower extremities: to rule out DVT If D-dimer is positive, will get CTA to rule out PE. 11/29/17 07:08 D-dimer is less than 200. Uric Acid is 6.5. Awaiting on doppler ultrasound of bilateral lower extremities. Patient will be transferred to Dr. Rubi for further workup and treatment. 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 / has examined the patient and agrees with the treatment plan. <Elida Tom - Last Filed: 11/29/17 07:11> Disposition/Present on Arrival - Present on Arrival Any Indicators Present on Arrival: No - Disposition Have Diagnosis and Disposition been Completed?: No <Erick Ocasio - Last Filed: 11/29/17 07:07> - Present on Arrival Any Indicators Present on Arrival: No History of DVT/PE: Yes History of Uncontrolled Diabetes: No Urinary Catheter: No History of Decub. Ulcer: No History Surgical Site Infection Following: None - Disposition Have Diagnosis and Disposition been Completed?: No Disposition Time: 07:10 <Elida Tom - Last Filed: 11/29/17 07:11> - Disposition Diagnosis: Leg swelling Condition: STABLE Forms: [facility] (Urdu)
[2017-11-29 07:08] LABS: BASO # 0.01 K/mm3 (0.0-2.0); BASO % 0.1 % (0.0-3.0); EOS # 0.1 (0.0-0.7); EOS % 0.6 % (1.5-5.0); GRAN # 7.09 (1.4-6.5); GRAN % 61.2 % (50.0-68.0); HEMOGLOBIN 11.8 g/dL (14.0-18.0); LYMPH # 3.2 (1.2-3.4); LYMPH % 27.7 % (22.0-35.0); MEAN CORPUSCULAR HEMOGLOBIN 25.7 pg (25.0-35.0); MEAN CORPUSCULAR HGB CONC 31.7 g/dl (31.0-37.0); MEAN PLATELET VOLUME 9.6 fl (7.0-11.0); MONO # 1.2 (0.1-0.6); MONO % 10.4 % (1.0-6.0); RBC 4.59 10^6/uL (3.5-6.1); WHITE BLOOD COUNT 11.6 10^3/ul (4.5-11.0)
[2017-11-29 07:09] LABS: ALB/GLOB RATIO 1.2 (1.1-1.8); ALT/SGPT 15 U/L (7-56); AST/SGOT 20 U/L (17-59); BLOOD UREA NITROGEN 8 mg/dL (7-21); CALCIUM 9.8 mg/dL (8.4-10.5); GFR AFRICAN-AMERICAN > 60; GFR NON-AFRICAN AMERICAN > 60; URIC ACID 6.5 mg/dL (3.5-8.5)
[2017-11-29] MEDS ORDERED: Morphine 2 mg/ml ISec IVP STA (07:41)
[2017-11-29 07:48] VITALS: O2SAT 99
[2017-11-29] MEDS ORDERED: Iohexol 350 MG/100 ML VIAL ONE (08:06)
--- NOTE | 2017-11-29 09:11 | CT ---
Date of service: 11/29/2017 PROCEDURE: CT Chest with contrast (Pulmonary Angiogram) HISTORY: elevated d dimer, dyspnea COMPARISON: 10/24/2016. CT chest/PE protocol. TECHNIQUE: Axial computed tomography images were obtained of the chest in the pulmonary arterial phase of enhancement. Coronal and sagittal reformatted images were created and reviewed. Intravenous contrast dose: 100 cc Omnipaque 350. Mean Hounsfield unit values in the main pulmonary artery: 92.82. Radiation dose: Total exam DLP = 565.58 mGy-cm. This CT exam was performed using one or more of the following dose reduction techniques: Automated exposure control, adjustment of the mA and/or kV according to patient size, and/or use of iterative reconstruction technique. FINDINGS: PULMONARY ARTERIES: Nondiagnostic assessment of the evaluation of suspected pulmonary embolus. This likely relates to body size/habitus. Similar results was seen on a prior CT pulmonary angiogram 10/24/2016. AORTA: No acute findings. No thoracic aortic aneurysm. LUNGS: Unremarkable. No nodule, mass or pulmonary consolidation. PLEURAL SPACES: Unremarkable. No effusion or pneumothorax. HEART: Unremarkable. No cardiomegaly. No significant pericardial effusion. LYMPH NODES: No lymphadenopathy. BONES, CHEST WALL: Unremarkable. No fracture or destructive lesion OTHER FINDINGS: Enlargement of the right thyroid lobe similar to that seen previously. IMPRESSION: Nondiagnostic CT pulmonary angiogram. Communication of results: I discussed the nondiagnostic value of this examination with the attending physician in the emergency department, Derick Guidry M.D.. Based upon failure to adequately opacified the pulmonary arterial system on a prior study I have concluded that this is likely related to body habitus/size.
--- NOTE | 2017-11-29 09:26 | ED PDOC ---
Physical Exam - Physical Exam Narrative Physical Exam (Text): 47 y/o M signed out to me at change of shift pending doppler results and proBNP. Doppler negative for DVT bilaterally. D dimer was reported to me to be negative by night team but it returned elevated. CTA was attempted but bolus not diagnostic. Patient states he feels very minorly short of breath and states he came to the ED for a known gout flare. He states his legs are always swollen at this level. He is also on Eliquis. He denies hemoptysis, fever, chest pain. Patient was agreeable to forego further PE testing and instructed to return for chest pain, hemoptysis, worsening shortness of breath. Labs otherwise unremarkable. 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 Advised on risk of narcotic use. XR foot no acute fracture, unchanged from previous. Vital Signs Temp Pulse Resp BP Pulse Ox 11/29/17 10:30 65 17 134/74 99 11/29/17 09:00 65 18 138/72 99 11/29/17 07:33 98.6 F 70 17 135/80 99 11/29/17 05:40 98.8 F 74 18 139/78 98 Medical Decision Making - Lab Interpretations Lab Results: 11/29/17 06:40 11/29/17 06:40 Lab Results 11/29/17 07:04: NT-Pro-B Natriuret Pep 128 11/29/17 06:40: D-Dimer, Quantitative 332 H 11/29/17 06:40: Sodium 143, Potassium 4.4, Chloride 103, Carbon Dioxide 31, Anion Gap 13, BUN 8, Creatinine 0.9, Est GFR ( Amer) > 60, Est GFR (Non- Af Amer) > 60, Random Glucose 100, Uric Acid 6.5, Calcium 9.8, Magnesium 2.1, Total Bilirubin 0.8, AST 20, ALT 15, Alkaline Phosphatase 96, Total Protein 7.4 , Albumin 4.0, Globulin 3.4, Albumin/Globulin Ratio 1.2 11/29/17 06:40: WBC 11.6 H D, RBC 4.59, Hgb 11.8 L, Hct 37.2 L, MCV 81.0, MCH 25.7, MCHC 31.7, RDW 13.0, Plt Count 302, MPV 9.6, Gran % 61.2, Lymph % (Auto) 27.7, [place] % (Auto) 10.4 H, Eos % (Auto) 0.6 L, Baso % (Auto) 0.1, Gran # 7.09 H , Lymph # (Auto) 3.2, [place] # (Auto) 1.2 H, Eos # (Auto) 0.1, Baso # (Auto) 0.01 - RAD Interpretation Radiology Orders: 11/29/17 05:42 DUPLEX LOWER EXTRM VEIN BILAT [US] Stat 11/29/17 06:15 CHEST PORTABLE [RAD] Stat 11/29/17 07:52 ANGIO CHEST PE PROTOCOL [CT] Stat 11/29/17 09:29 FOOT RIGHT 3 VIEWS ROUTINE [RAD] Stat - Medication Orders Current Medication Orders: Discontinued Medications Methylprednisolone (Solu-Medrol) 125 mg IVP STAT STA Stop: 11/29/17 07:42 Last Admin: 11/29/17 08:24 Dose: 125 mg IVP Administration Document 11/29/17 08:24 SF (Rec: 11/29/17 08:24 [id number]) Charges for Administration # of IVP Administrations 1 Morphine Sulfate (Morphine) 2 mg IVP STAT STA Stop: 11/29/17 07:42 Last Admin: 11/29/17 08:24 Dose: 2 mg MAR Pain Assessment Document 11/29/17 08:24 SF (Rec: 11/29/17 08:24 [id number]) Pain Reassessment Is this a pain reassessment? Yes Sleep Is patient sleeping during reassessment? No Presence of Pain Presence of Pain Yes Pain Scale Used Pain Scale Used Numeric Location Left, Right or Bilateral Bilateral Pain Location Body Site Foot Description Description Constant IVP Administration Document 11/29/17 08:24 SF (Rec: 11/29/17 08:24 [id number]) Charges for Administration # of IVP Administrations 1 Disposition/Present on Arrival - Present on Arrival Any Indicators Present on Arrival: No History of DVT/PE: Yes History of Uncontrolled Diabetes: No Urinary Catheter: No History of Decub. Ulcer: No History Surgical Site Infection Following: None - Disposition Have Diagnosis and Disposition been Completed?: Yes Diagnosis: Foot pain Disposition: HOME/ ROUTINE Disposition Time: 09:27 Patient Plan: Discharge Patient Problems: Current Active Problems Problem Status Onset Foot pain Acute Condition: STABLE Discharge Instructions (ExitCare): Gout Prescriptions: Prednisone [Deltasone] 3 tab PO DAILY #12 tablet traMADol [Ultram] 1 tab PO Q8H PRN #6 tab PRN Reason: Pain, Severe (8-10) Referrals: Arabella Boogie MD [Family Provider] - Follow up with primary Forms: [facility] (Lao)
--- NOTE | 2017-11-29 09:56 | RAD ---
Date of service: 11/29/2017 HISTORY: r/o infiltrate COMPARISON: 11/03/2017 FINDINGS: LUNGS: No active pulmonary disease. PLEURA: No significant pleural effusion identified, no pneumothorax apparent. CARDIOVASCULAR: Normal. OSSEOUS STRUCTURES: No significant abnormalities. VISUALIZED UPPER ABDOMEN: Normal. OTHER FINDINGS: None. IMPRESSION: No active disease.
[2017-11-29 10:30] VITALS: PULSE 65
[2017-11-29 10:31] VITALS: BP 134/74; RESP 17
[2017-11-29 10:54] VITALS: TEMP 98.7
--- NOTE | 2017-11-29 10:56 | RAD ---
Date of service: 11/29/2017 PROCEDURE: Right Foot Radiographs. HISTORY: foot pain COMPARISON: None. FINDINGS: BONES: Normal. No fracture. JOINTS: Mild degenerative changes at the 1st MTP joint SOFT TISSUES: Normal. OTHER FINDINGS: None. IMPRESSION: No acute findings. Mild degenerative changes at the 1st MTP joint
--- NOTE | 2017-11-29 13:07 | US ---
HISTORY: Leg pain and swelling. Evaluate for DVT PHYSICIAN(S): Wayne Townsend MD. TECHNIQUE: Duplex sonography and color-flow Doppler with graded compression were used to evaluate the deep venous systems of both lower extremities. Limited due to body habitus and edema. The tibial veins are not adequately seen. FINDINGS: The visualized deep venous systems of both lower extremities are sonographically normal and compressible. Normal wave forms and augmentation are seen. There is no sonographic evidence for deep venous thrombosis in the visualized segments of both lower extremities. IMPRESSION: No sonographic evidence for deep venous thrombosis in the visualized segments of both lower extremities. Very limited study
== END 2017-11-29 10:44 | disposition home or self-care (01) ==
LOC: ED 05:13
DX: M79.671 Pain in right foot (principal)
CPT/HCPCS: 71045; 71275; 73630; 80053; 83735; 83880; 84550; 85025; 85378; 93970; 96374; 96375; 99285; J2270; J2930; Q9967

== ENCOUNTER 2017-12-25 22:46 | Emergency (ER) | payer MEDICAID ==
[2017-12-25 22:47] VITALS: BMI 55.7
[2017-12-25 23:00] VITALS: TEMP 98.1
[2017-12-26 00:12] VITALS: PULSE 56
[2017-12-26 00:13] LABS: BASO # 0.03 K/mm3 (0.0-2.0); BASO % 0.3 % (0.0-3.0); EOS # 0.2 (0.0-0.7); EOS % 1.9 % (1.5-5.0); GRAN # 3.89 (1.4-6.5); HEMOGLOBIN 12.5 g/dL (14.0-18.0); LYMPH # 4.8 (1.2-3.4); LYMPH % 48.3 % (22.0-35.0); MEAN CELL VOLUME 82.8 fl (80.0-105.0); MEAN CORPUSCULAR HEMOGLOBIN 26.9 pg (25.0-35.0); MEAN CORPUSCULAR HGB CONC 32.6 g/dl (31.0-37.0); MEAN PLATELET VOLUME 10.4 fl (7.0-11.0); MONO # 1.1 (0.1-0.6); MONO % 10.5 % (1.0-6.0); RBC 4.64 10^6/uL (3.5-6.1); RED CELL DISTRIBUTION WIDTH 13.9 % (11.5-14.5)
[2017-12-26 00:23] LABS: INR 1.23; PROTHROMBIN TIME 14.1 SECONDS (9.4-12.5)
[2017-12-26 00:25] LABS: ALB/GLOB RATIO 1.2 (1.1-1.8); ALT/SGPT 19 U/L (7-56); AST/SGOT 19 U/L (17-59); BLOOD UREA NITROGEN 11 mg/dL (7-21); CALCIUM 9.1 mg/dL (8.4-10.5); GFR NON-AFRICAN AMERICAN > 60
[2017-12-26 00:27] LABS: PARTIAL THROMBOPLASTIN TIME 36.9 Seconds (25.1-36.5)
--- NOTE | 2017-12-26 00:34 | ED PDOC ---
Arrival/HPI - General Chief Complaint: High Blood Pressure Time Seen by Provider: 12/25/17 23:13 Historian: Patient - History of Present Illness Narrative History of Present Illness (Text): 12/26/17 00:29 47-year-old male presents today with concerns for hypertension. Patient states today he had "a little twinge" in his head and thought maybe his blood pressure was high. Patient then went to a store and checked his blood pressure on a machine and the reading was 280/90. Patient states he took his blood pressure medication this morning and again after he had the elevated blood pressure reading. Patient states the "twinge" in his head has resolved. Patient came to the emergency room wanting to have his blood pressure checked. He denies chest pain or shortness of breath. He denies dizziness or weakness. He denies headache at present time. He denies nausea vomiting diarrhea or constipation. He denies any urinary symptoms. No other complaints. Time/Duration: Prior to Arrival Symptom Course: Resolved Past Medical History - Provider Review Nursing Documentation Reviewed: Yes - Travel History Have you recently traveled outside [place] w/in the past 3 mons?: No - Infectious Disease Hx of Infectious Diseases: None - Tetanus Immunization Tetanus Immunization: Unknown - Cardiac Hx Cardiac Disorders: Yes Hx Hypertension: Yes - Pulmonary Hx Respiratory Disorders: Yes Hx Sleep Apnea: Yes - Neurological Hx Neurological Disorder: Yes Hx Dizziness: Yes - HEENT Hx HEENT Disorder: No - Renal Hx Renal Disorder: No - Endocrine/Metabolic Hx Endocrine Disorders: No - Hematological/Oncological Hx Blood Disorders: No - Integumentary Hx Dermatological Disorder: No - Musculoskeletal/Rheumatological Hx Musculoskeletal Disorders: Yes Hx Gout: Yes - Gastrointestinal Hx Gastrointestinal Disorders: Yes (obese) - Genitourinary/Gynecological Hx Genitourinary Disorders: No - Psychiatric Hx Psychophysiologic Disorder: No Hx Substance Use: No - Surgical History Hx Orthopedic Surgery: Yes (ORIF LEFT HIP pins isaac hips) - Anesthesia Hx Anesthesia: Yes Hx Anesthesia Reactions: No Hx Malignant Hyperthermia: No - Suicidal Assessment Feels Threatened In Home Enviroment: No Family/Social History - Physician Review Nursing Documentation Reviewed: Yes Family/Social History: Unknown Family HX Smoking Status: Never Smoked Hx Alcohol Use: No Hx Substance Use: No Hx Substance Use Treatment: No Allergies/Home Meds Allergies/Adverse Reactions: Allergies hydrochlorothiazide [From Hyzaar] Allergy (Verified 12/25/17 23:03) ANAPHYLAXIS losartan potassium [From Hyzaar] Allergy (Verified 12/25/17 23:03) ANAPHYLAXIS amlodipine besylate [From Norvasc] Adverse Reaction (Verified 12/25/17 23:03) HEADACHE pt feels jittery Home Medications: Home Meds Medication Instructions Recorded Confirmed Nebivolol [Bystolic] 10 mg PO DAILY 07/05/16 12/25/17 Review of Systems - Review of Systems Constitutional: absent: Fatigue, Fevers Eyes: absent: Vision Changes, Photophobia, Eye Pain ENT: absent: Sinus Congestion Respiratory: absent: SOB, Cough Cardiovascular: absent: Chest Pain, Palpitations Gastrointestinal: absent: Abdominal Pain, Nausea, Vomiting Genitourinary Male: absent: Dysuria, Frequency, Hematuria Musculoskeletal: absent: Arthralgias, Back Pain, Neck Pain Skin: absent: Rash, Pruritis Neurological: Headache. absent: Dizziness Psychiatric: absent: Anxiety, Depression Physical Exam Vital Signs Reviewed: Yes Vital Signs Temp Pulse Resp BP Pulse Ox 12/26/17 00:10 56 L 16 178/89 H 97 12/25/17 23:00 98.1 F 58 L 17 190/91 H 98 12/25/17 22:59 98.1 F 58 L 17 190/91 H 98 Temperature: Afebrile Blood Pressure: Hypertensive Pulse: Regular Respiratory Rate: Normal Appearance: Positive for: Well-Appearing, Non-Toxic, Comfortable Pain Distress: None Mental Status: Positive for: Alert and Oriented X 3 - Systems Exam Head: Present: Atraumatic Pupils: Present: PERRL Extroacular Muscles: Present: EOMI Conjunctiva: Present: Normal Mouth: Present: Moist Mucous Membranes Neck: Present: Normal Range of Motion Respiratory/Chest: Present: Clear to Auscultation, Good Air Exchange. No: Respiratory Distress, Accessory Muscle Use Cardiovascular: Present: Regular Rate and Rhythm, Normal S1, S2. No: Murmurs Abdomen: No: Tenderness Upper Extremity: Present: Normal ROM Lower Extremity: Present: Normal ROM Neurological: Present: GCS=15, Speech Normal Skin: Present: Warm, Dry, Normal Color. No: Rashes Psychiatric: Present: Alert, Oriented x 3 Medical Decision Making ED Course and Treatment: 12/26/17 00:31 47-year-old male with a history of high blood pressure presents concerned for elevated blood pressure reading Blood pressure slightly elevated in the emergency room. Patient without any complaints at present time CBC within normal limits CMP within normal limits PT/PTT within normal limits EKG sinus bradycardia 54 bpm normal axis no ST elevations QTC 438 CAT scan of the head: Pending Patient reassessment: Patient is nontoxic well-appearing in no distress ambulating around the emergency room without any complaints. He denies headache dizziness or weakness at present time. I advised the patient of risk of stroke, heart attack, bleeding in the brain. Patient states he has a plane to catch and will call for his CAT scan results. Patient has been advised to not leave the emergency room but has decided to go AGAINST MEDICAL ADVICE. The patient possesses capacity to make decisions and has voiced understanding to all my warnings of potential worsening of the condition for which medical care was sought. I have discussed all known and potential risks and consequences to the patient leaving AGAINST MEDICAL ADVICE. Patient is leaving against medical advise. AMA form signed. witness by USHA hart. all aspects of this case were discussed the attending of record. Impression: Elevated blood pressure PT SIGNED AMA Return if you wish to continue your care Follow-up with the primary care physician within the next 2 days regarding your elevated blood pressure Take your blood pressure medications as prescribed Return immediately if symptoms worsen persist or if new concerning symptoms develop - Lab Interpretations Lab Results: 12/25/17 23:35 12/25/17 23:35 Lab Results 12/25/17 23:35: PT 14.1 H, INR 1.23, APTT 36.9 H 12/25/17 23:35: WBC 10.0, RBC 4.64, Hgb 12.5 L, Hct 38.4 L, MCV 82.8, MCH 26.9, MCHC 32.6, RDW 13.9, Plt Count 242, MPV 10.4, Gran % 39.0 L, Lymph % (Auto) 48.3 H, [place] % (Auto) 10.5 H, Eos % (Auto) 1.9, Baso % (Auto) 0.3, Gran # 3.89, Lymph # (Auto) 4.8 H, [place] # (Auto) 1.1 H, Eos # (Auto) 0.2, Baso # (Auto) 0.03 12/25/17 23:35: Sodium 144, Potassium 4.4, Chloride 103, Carbon Dioxide 30, Anion Gap 15, BUN 11, Creatinine 0.9, Est GFR ( Amer) > 60, Est GFR (Non- Af Amer) > 60, Random Glucose 95, Calcium 9.1, Total Bilirubin 0.3, AST 19, ALT 19, Alkaline Phosphatase 83, Total Protein 7.3, Albumin 4.0, Globulin 3.3, Albumin/Globulin Ratio 1.2 - RAD Interpretation Radiology Orders: 12/26/17 23:13 HEAD W/O CONTRAST [CT] Stat Disposition/Present on Arrival - Present on Arrival Any Indicators Present on Arrival: Yes History of DVT/PE: Yes History of Uncontrolled Diabetes: No Urinary Catheter: No History of Decub. Ulcer: No History Surgical Site Infection Following: None - Disposition Have Diagnosis and Disposition been Completed?: Yes Diagnosis: Hypertension, Headache Disposition: AGAINST MEDICAL ADVICE Disposition Time: 00:42 Patient Plan: Other (AMA) Condition: FAIR Discharge Instructions (ExitCare): DASH Diet, High Blood Pressure in Adults Additional Instructions: Return if you wish to continue your care Follow-up with the primary care physician within the next 2 days regarding your elevated blood pressure Take your blood pressure medications as prescribed Return immediately if symptoms worsen persist or if new concerning symptoms develop Referrals: Arabella Boogie MD [Primary Care Provider] - Follow up with primary Mainor Augustin MD [Staff Provider] - Follow up with primary
[2017-12-26 00:48] VITALS: BP 176/85; RESP 18; O2SAT 100
--- NOTE | 2017-12-26 08:17 | CT ---
Date of service: 12/26/2017 PROCEDURE: CT HEAD WITHOUT CONTRAST. HISTORY: headache COMPARISON: None available. TECHNIQUE: Axial computed tomography images were obtained through the head/brain without intravenous contrast. Radiation dose: Total exam DLP = 998 mGy-cm. This CT exam was performed using one or more of the following dose reduction techniques: Automated exposure control, adjustment of the mA and/or kV according to patient size, and/or use of iterative reconstruction technique. FINDINGS: HEMORRHAGE: No intracranial hemorrhage. BRAIN: No mass effect or edema. No atrophy or chronic microvascular ischemic changes. VENTRICLES: Unremarkable. No hydrocephalus. CALVARIUM: Unremarkable. PARANASAL SINUSES: Unremarkable as visualized. No significant inflammatory changes. MASTOID AIR CELLS: Unremarkable as visualized. No inflammatory changes. OTHER FINDINGS: The report concurs with the preliminary [facility] report IMPRESSION: No acute findings
--- NOTE | 2017-12-26 11:33 | CARD ---
APPROVED REPORT Date of service: 12/25/2017 EKG Measurement Heart [id number] <Conclusion> Sinus bradycardia Possible Anterior infarct, age undetermined Abnormal ECG
== END 2017-12-26 00:47 | disposition left against medical advice (07) ==
LOC: ED 22:46
DX: I10 Essential (primary) hypertension (principal); R51 Headache

== ENCOUNTER 2018-02-26 19:58 | Emergency (ER) | payer MEDICAID ==
[2018-02-26 19:58] VITALS: BMI 55.7
== END 2018-02-26 20:41 | disposition left against medical advice (07) ==
LOC: ED 19:58
DX: Z02.89 Encounter for other administrative examinations (principal); R09.89 Other specified symptoms and signs involving the circulatory and respiratory systems

== ENCOUNTER 2018-03-15 13:41 | Emergency (ER) | payer MEDICAID ==
[2018-03-15 13:41] VITALS: BMI 55.7
[2018-03-15 13:47] VITALS: O2SAT 98
--- NOTE | 2018-03-15 15:57 | RAD ---
Date of service: 03/15/2018 PROCEDURE: Left Foot Radiographs. HISTORY: heel pain COMPARISON: None. FINDINGS: BONES: Bone alignment and mineralization are normal. There is no acute displaced fracture or bone destruction. JOINTS: There is moderate degenerative osteoarthrosis in the 1st MTP joint with reduced joint space, marginal spurring as subarticular cystic changes. SOFT TISSUES: There is moderate soft tissue swelling in the foot. OTHER FINDINGS: None. 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 Moderate soft tissue swelling in the foot.
[2018-03-15 16:35] VITALS: BP 170/77; PULSE 74; RESP 18; TEMP 98.4
--- NOTE | 2018-03-15 17:11 | ED PDOC ---
Arrival/HPI - General Chief Complaint: Lower Extremity Problem/Injury Historian: Patient - History of Present Illness Narrative History of Present Illness (Text): 03/15/18 14:29 48 year old male, whose past medical history includes, presents to the emergency department complaining of left foot and calf pain, for 1 day. Patient denies stepping on anything unusual, any fall, or any trauma trauma to the area. He reports he has had similar complaints to the area whenever he changes his foot wear. Patient denies fevers, chills, headache, dizziness, chest pain, shortness of breath, dyspnea on exertion, cough, abdominal pain, nausea, vomiting, diarrhea, back pain, neck pain, or any other complaint. Time/Duration: 24 hours Symptom Course: Unchanged Activities at Onset: Light Context: Home Past Medical History - Provider Review Nursing Documentation Reviewed: Yes - Infectious Disease Hx of Infectious Diseases: None - Tetanus Immunization Tetanus Immunization: Unknown - Cardiac Hx Cardiac Disorders: Yes Hx Hypertension: Yes - Pulmonary Hx Respiratory Disorders: Yes Hx Sleep Apnea: Yes - Neurological Hx Neurological Disorder: Yes Hx Dizziness: Yes - HEENT Hx HEENT Disorder: No - Renal Hx Renal Disorder: No - Endocrine/Metabolic Hx Endocrine Disorders: No - Hematological/Oncological Hx Blood Disorders: No - Integumentary Hx Dermatological Disorder: No - Musculoskeletal/Rheumatological Hx Musculoskeletal Disorders: Yes Hx Gout: Yes - Gastrointestinal Hx Gastrointestinal Disorders: Yes (obese) - Genitourinary/Gynecological Hx Genitourinary Disorders: No - Psychiatric Hx Psychophysiologic Disorder: No Hx Substance Use: No - Surgical History Hx Orthopedic Surgery: Yes (ORIF LEFT HIP) - Anesthesia Hx Anesthesia: Yes Hx Anesthesia Reactions: No Hx Malignant Hyperthermia: No - Suicidal Assessment Feels Threatened In Home Enviroment: No Family/Social History - Physician Review Nursing Documentation Reviewed: Yes Family/Social History: No Known Family HX Smoking Status: Never Smoked Hx Alcohol Use: No Hx Substance Use: No Hx Substance Use Treatment: No Allergies/Home Meds Allergies/Adverse Reactions: Allergies hydrochlorothiazide [From Hyzaar] Allergy (Verified 03/15/18 13:43) ANAPHYLAXIS losartan potassium [From Hyzaar] Allergy (Verified 03/15/18 13:43) ANAPHYLAXIS amlodipine besylate [From Norvasc] Adverse Reaction (Verified 03/15/18 13:43) HEADACHE pt feels jittery Home Medications: Home Meds Medication Instructions Recorded Confirmed Nebivolol [Bystolic] 10 mg PO DAILY 07/05/16 03/15/18 Febuxostat [Uloric] 80 mg PO DAILY 03/15/18 03/15/18 Review of Systems - Physician Review All systems were reviewed & negative as marked: Yes - Review of Systems Constitutional: Normal. absent: Fevers Eyes: Normal. absent: Vision Changes ENT: Normal Respiratory: Normal. absent: SOB, Cough Cardiovascular: Normal. absent: Chest Pain Gastrointestinal: Normal. absent: Abdominal Pain, Diarrhea, Nausea, Vomiting Genitourinary Male: Normal Musculoskeletal: Other (left foot and calf pain ). absent: Back Pain, Neck Pain Skin: Normal Neurological: Normal. absent: Headache, Dizziness Endocrine: Normal Hemo/Lymphatic: Normal Psychiatric: Normal Physical Exam Vital Signs Reviewed: Yes Vital Signs Temp Pulse Resp BP Pulse Ox 03/15/18 16:15 98.4 F 74 18 170/77 H 98 03/15/18 13:47 98.7 F 77 16 173/95 H 98 Temperature: Afebrile Blood Pressure: Hypertensive Pulse: Regular Respiratory Rate: Normal Appearance: Positive for: Well-Appearing, Non-Toxic, Comfortable Pain Distress: None Mental Status: Positive for: Alert and Oriented X 3 - Systems Exam Head: Present: Atraumatic, Normocephalic Pupils: Present: PERRL Extroacular Muscles: Present: EOMI Conjunctiva: Present: Normal Mouth: Present: Moist Mucous Membranes Neck: Present: Normal Range of Motion Respiratory/Chest: Present: Clear to Auscultation, Good Air Exchange. No: Respiratory Distress, Accessory Muscle Use Cardiovascular: Present: Regular Rate and Rhythm, Normal S1, S2. No: Murmurs Abdomen: No: Tenderness, Distention, Peritoneal Signs Back: Present: Normal Inspection Upper Extremity: Present: Normal Inspection. No: Cyanosis, Edema Lower Extremity: Present: Normal Inspection. No: Edema Neurological: Present: GCS=15, CN II-XII Intact, Speech Normal Skin: Present: Warm, Dry, Normal Color, Other (morbidly obese). No: Rashes Psychiatric: Present: Alert, Oriented x 3, Normal Insight, Normal Concentration Medical Decision Making ED Course and Treatment: 03/15/18 14:29 Impression: 48 year old male who presents to the emergency department with complaints of left foot and calf pain. Plan: -- US of Left Lower Extremity -- Left Foot X-ray -- Reassess and disposition Prior Visits: Notes and results from previous visits were reviewed. Progress Notes: - RAD Interpretation Narrative RAD Interpretations (Text): 03/15/18 17:16 Left foot X-ray reviewed, shows: FINDINGS: BONES:Bone alignment and mineralization are normal. There is no acute displaced fracture or bone destruction. JOINTS:There is moderate degenerative osteoarthrosis in the 1st MTP joint with reduced joint space, marginal spurring as subarticular cystic changes. SOFT TISSUES:There is moderate soft tissue swelling in the foot. OTHER FINDINGS:None. 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 Moderate soft tissue swelling in the foot. Radiology Orders: 03/15/18 14:29 FOOT LEFT 3 VIEWS ROUTINE [RAD] Stat DUPLEX LOWER EXTRM VEIN LEFT [US] Stat Patient Account Liaison: Radiologist - Scribe Statement The provider has reviewed the documentation as recorded by the Scribe Simona Gonzalez Provider Scribe Attestation: All medical record entries made by the Scribe were at my direction and persona lly dictated by me. I have reviewed the chart and agree that the record accurately reflects my personal performance of the history, physical exam, medical decision making, and the department course for this patient. I have also personally directed, reviewed, and agree with the discharge instructions and disposition. Disposition/Present on Arrival - Present on Arrival Any Indicators Present on Arrival: No History of DVT/PE: Yes History of Uncontrolled Diabetes: No Urinary Catheter: No History of Decub. Ulcer: No History Surgical Site Infection Following: None - Disposition Have Diagnosis and Disposition been Completed?: Yes Diagnosis: Foot pain Disposition: HOME/ ROUTINE Disposition Time: 16:00 Condition: GOOD Discharge Instructions (ExitCare): Foot Sprain (DC) Additional Instructions: HARIS GUZMAN, thank you for letting us take care of you today. The emergency medical care you received today was directed at your acute symptoms. If you were prescribed any medication, please fill it and take as directed. It may take several days for your symptoms to resolve. Return to the Emergency Department if your symptoms worsen, do not improve, or if you have any other problems. Please contact your doctor or call one of the physicians/clinics you have been referred to that are listed on the Patient Visit Information form that is included in your discharge packet. Bring any paperwork you were given at [facility] with you along with any medications you are taking to your follow up visit. Our treatment cannot replace ongoing medical care by a primary care provider outside of the emergency department. Thank you for allowing the [facility] team to be part of your care today. 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 Prescriptions: Cyclobenzaprine [Cyclobenzaprine HCl] 10 mg PO Q8 PRN #20 tab PRN Reason: Muscle Spasm Ibuprofen [Motrin] 600 mg PO Q6 PRN #20 tab PRN Reason: Pain, Moderate (4-7) Referrals: [facility], [Non-Staff] - Follow up with primary Forms: [employer] (Hungarian)
--- NOTE | 2018-03-15 20:39 | US ---
PROCEDURE: Left lower extremity venous US HISTORY: Leg pain and swelling. Evaluate for DVT. PHYSICIAN(S): Wayne Townsend MD. TECHNIQUE: Duplex sonography and color-flow Doppler with graded compression were used to evaluate the deep venous system of the left lower extremity. The exam is limited by body habitus and edema. The lower femoral veins and tibial veins are not well seen FINDINGS: The visualized deep venous system of the left lower extremity is sonographically normal and compressible. Normal wave forms and augmentation are seen. There is no sonographic evidence for deep venous thrombosis in the visualized segments of the left lower extremity. IMPRESSION: 1. No sonographic evidence for deep venous thrombosis in the visualized segments of the left lower extremity. 2. Limited study
== END 2018-03-15 16:30 | disposition home or self-care (01) ==
LOC: ED 13:41
DX: M79.672 Pain in left foot (principal); I10 Essential (primary) hypertension

== ENCOUNTER 2018-05-23 01:51 | Emergency (ER) | payer MEDICAID ==
[2018-05-23 01:51] VITALS: BMI 55.7
--- NOTE | 2018-05-23 02:10 | ED PDOC ---
Arrival/HPI - General Chief Complaint: Cough, Cold, Congestion Time Seen by Provider: 05/23/18 01:54 Historian: Patient - History of Present Illness Narrative History of Present Illness (Text): 05/23/18 02:09 Juan J Landry is a 48 year old male, whose past medical history includes PE, hypertension, GERD, and Gout, who presents to the Emergency department complaining of cold-like symptoms. Patient states he has been experiencing chest congestion with associated cough and occasional shortness of breath. Patient states he was previously placed on a Z-tera with no significant improvement. Patient also complaining of right-sided testicular swelling over the past 3-4 weeks. Patient was seen by his PMD for similar complaints and advised to come to the Emergency department for further evaluation. Patient denies any fever, chills, nausea, vomiting, diarrhea, urinary symptoms, back pain, neck pain, headache, dizziness, or any other complaints. Time/Duration: < month Symptom Onset: Gradual Symptom Course: Unchanged Activities at Onset: Light Context: Home Past Medical History - Provider Review Nursing Documentation Reviewed: Yes - Infectious Disease Hx of Infectious Diseases: None - Tetanus Immunization Tetanus Immunization: Unknown - Cardiac Hx Cardiac Disorders: Yes Hx Hypertension: Yes - Pulmonary Hx Respiratory Disorders: Yes Hx Sleep Apnea: Yes - Neurological Hx Neurological Disorder: Yes Hx Dizziness: Yes - HEENT Hx HEENT Disorder: No - Renal Hx Renal Disorder: No - Endocrine/Metabolic Hx Endocrine Disorders: No - Hematological/Oncological Hx Blood Disorders: No - Integumentary Hx Dermatological Disorder: No - Musculoskeletal/Rheumatological Hx Musculoskeletal Disorders: Yes Hx Gout: Yes - Gastrointestinal Hx Gastrointestinal Disorders: Yes (obese) - Genitourinary/Gynecological Hx Genitourinary Disorders: No - Psychiatric Hx Psychophysiologic Disorder: No Hx Substance Use: No - Surgical History Hx Orthopedic Surgery: Yes (ORIF LEFT HIP) - Anesthesia Hx Anesthesia: Yes Hx Anesthesia Reactions: No Hx Malignant Hyperthermia: No - Suicidal Assessment Feels Threatened In Home Enviroment: No Family/Social History - Physician Review Nursing Documentation Reviewed: Yes Family/Social History: Unknown Family HX Smoking Status: Never Smoked Hx Alcohol Use: No Hx Substance Use: No Hx Substance Use Treatment: No Allergies/Home Meds Allergies/Adverse Reactions: Allergies hydrochlorothiazide [From Hyzaar] Allergy (Verified 05/23/18 02:00) ANAPHYLAXIS losartan potassium [From Hyzaar] Allergy (Verified 05/23/18 02:00) ANAPHYLAXIS amlodipine besylate [From Norvas] Adverse Reaction (Verified 05/23/18 02:00) HEADACHE pt feels jittery Home Medications: Home Meds Medication Instructions Recorded Confirmed Nebivolol [Bystolic] 10 mg PO DAILY 07/05/16 05/23/18 Febuxostat [Uloric] 80 mg PO DAILY 03/15/18 05/23/18 Review of Systems - Physician Review All systems were reviewed & negative as marked: Yes - Review of Systems Constitutional: Normal. absent: Fevers Eyes: Normal ENT: Other (+chest congestion) Respiratory: SOB, Cough Cardiovascular: absent: Chest Pain Gastrointestinal: Normal. absent: Abdominal Pain, Diarrhea, Nausea, Vomiting Genitourinary Male: Other (+right testicular swelling). absent: Dysuria, Frequency, Hematuria, Urinary Output Changes Musculoskeletal: Normal Skin: Normal. absent: Rash Neurological: Normal. absent: Headache, Dizziness Endocrine: Normal Hemo/Lymphatic: Normal Psychiatric: Normal Physical Exam Vital Signs Reviewed: Yes Vital Signs Temp Pulse Resp Pulse Ox 05/23/18 02:07 98.5 F 76 16 100 Temperature: Afebrile Blood Pressure: Hypertensive Pulse: Regular Respiratory Rate: Normal Appearance: Positive for: Well-Appearing, Non-Toxic, Comfortable Pain Distress: None Mental Status: Positive for: Alert and Oriented X 3 - Systems Exam Head: Present: Atraumatic, Normocephalic Pupils: Present: PERRL Extroacular Muscles: Present: EOMI Conjunctiva: Present: Normal Mouth: Present: Moist Mucous Membranes Neck: Present: Normal Range of Motion Respiratory/Chest: Present: Clear to Auscultation, Good Air Exchange. No: Respiratory Distress, Accessory Muscle Use Cardiovascular: Present: Regular Rate and Rhythm, Normal S1, S2. No: Murmurs Abdomen: No: Tenderness, Distention, Peritoneal Signs Genitourinary Male: Present: Other (Left-sided scrotal swelling). No: Testicle Tenderness, Masses, Erythema, Hernias Back: Present: Normal Inspection Upper Extremity: Present: Normal Inspection. No: Cyanosis, Edema Lower Extremity: Present: Normal Inspection. No: Edema Neurological: Present: GCS=15, CN II-XII Intact, Speech Normal Skin: Present: Warm, Dry, Normal Color. No: Rashes Psychiatric: Present: Alert, Oriented x 3, Normal Insight, Normal Concentration Medical Decision Making ED Course and Treatment: 05/23/18 02:09 Impression: 48 year old male complaining of cold-like symptoms, chest congestion, shortness of breath, cough, and right testicular swelling. Plan: -- US Duplex Testes -- EKG -- CXR -- Labs, cardiac enzymes, D-dimer -- Reassess and disposition Prior Visits: Notes and results from previous visits were reviewed. Progress Notes: 05/23/18 02;41 Reviewed EKG, NSR at 63 bpm. Sinus arrhythmia. Non-specific T wave changes. 05/23/18 04:46 Reviewed radiology, Chest X-ray shows no acute processes. US Duplex Testes: Findings: The right testicle measures 4.4 x3.2 x 3.1 cm. Homogeneous right testicular echotexture. Right testicular microlithiasis. The right epididymis measures 1.6x1.2x0.7 cm. Increased right testicular flow compared to the left testicle. Moderate right hydrocele. Left testicle measures 4.6x2.3 x 3.1 cm. Homogeneous echotexture the left testicle. Small left hydrocele. The left epididymis measures 1.1x1.1x1.5 cm. Impression: Moderate right hydrocele containing debris. Right orchitis. Testicular microlithiasis. No mass lesion is noted. No sonographic evidence of testicular torsion Electronically signed on May 23, 2018 4:11:06 AM EST by: Senthil Jhon M.D., Certified by ABR, MSK, Neuroradiology - EKG Interpretation Interpreted by ED Physician: Yes Type: 12 lead EKG - Scribe Statement The provider has reviewed the documentation as recorded by the Charan García Provider Scribe Attestation: All medical record entries made by the Scribe were at my direction and personally dictated by me. I have reviewed the chart and agree that the record accurately reflects my personal performance of the history, physical exam, medical decision making, and the department course for this patient. I have also personally directed, reviewed, and agree with the discharge instructions and disposition. Disposition/Present on Arrival - Present on Arrival Any Indicators Present on Arrival: No History of DVT/PE: Yes History of Uncontrolled Diabetes: No Urinary Catheter: No History of Decub. Ulcer: No History Surgical Site Infection Following: None - Disposition Have Diagnosis and Disposition been Completed?: Yes Diagnosis: Upper respiratory infection with cough and congestion, Hydrocele in adult Disposition: HOME/ ROUTINE Disposition Time: 05:30 Condition: STABLE Discharge Instructions (ExitCare): Viral Upper Respiratory Infection, Adult (DC), Hydrocele/Varicocele (DC) Prescriptions: levoFLOXacin [Levaquin] 500 mg PO DAILY #10 tab Oseltamivir Cap [Tamiflu] 75 mg PO BID #10 cap Referrals: Arabella Boogie MD [Primary Care Provider] - Follow up with primary Adolfo Herring MD [Staff Provider] - Follow up with primary Forms: [employer] (Chinese)
[2018-05-23 03:22] LABS: BASO # 0.03 K/mm3 (0.0-2.0); BASO % 0.3 % (0.0-3.0); EOS # 0.1 (0.0-0.7); EOS % 0.8 % (1.5-5.0); GRAN # 6.24 (1.4-6.5); GRAN % 53.1 % (50.0-68.0); LYMPH # 3.4 (1.2-3.4); LYMPH % 29.3 % (22.0-35.0); MEAN CELL VOLUME 84.8 fl (80.0-105.0); MEAN CORPUSCULAR HEMOGLOBIN 27.1 pg (25.0-35.0); MEAN CORPUSCULAR HGB CONC 31.9 g/dl (31.0-37.0); MEAN PLATELET VOLUME 10.2 fl (7.0-11.0); MONO # 1.9 (0.1-0.6); MONO % 16.5 % (1.0-6.0); RBC 4.8 10^6/uL (3.5-6.1); RED CELL DISTRIBUTION WIDTH 13.8 % (11.5-14.5); WHITE BLOOD COUNT 11.7 10^3/uL (4.5-11.0)
[2018-05-23 04:39] LABS: ALB/GLOB RATIO 1.2 (1.1-1.8); ALBUMIN 3.7 g/dL (3.0-4.8); ALT/SGPT 19 U/L (7-56); AST/SGOT 17 U/L (17-59); BLOOD UREA NITROGEN 16 mg/dL (7-21); CALCIUM 8.7 mg/dL (8.4-10.5); GFR NON-AFRICAN AMERICAN > 60
[2018-05-23 04:48] VITALS: PULSE 65; RESP 18
[2018-05-23 04:50] LABS: TROPONIN I < 0.01 ng/mL
[2018-05-23] MEDS ORDERED: levoFLOXacin 500 MG TAB PO STA (05:10)
[2018-05-23 05:33] VITALS: BP 150/86; TEMP 98.2; O2SAT 97
--- NOTE | 2018-05-23 09:39 | RAD ---
Date of service: 05/23/2018 HISTORY: sob COMPARISON: 11/29/2017 TECHNIQUE: Chest PA and lateral FINDINGS: LUNGS: No active pulmonary disease. PLEURA: No significant pleural effusion identified. No pneumothorax apparent. CARDIOVASCULAR: No aortic atherosclerotic calcification present. Normal cardiac size. No pulmonary vascular congestion. OSSEOUS STRUCTURES: No significant abnormalities. VISUALIZED UPPER ABDOMEN: Normal. OTHER FINDINGS: None. IMPRESSION: No active disease.
--- NOTE | 2018-05-23 12:27 | CARD ---
APPROVED REPORT Date of service: 05/23/2018 EKG Measurement Heart [id number] MD [id number] <Conclusion> Normal sinus rhythm Possible anterior AR, old LVH STTW micheline c/w ischemia, new Q in 3
--- NOTE | 2018-05-23 14:08 | US ---
Date of service: 05/23/2018 HISTORY: swollen rt testicle TECHNIQUE: Realtime sonography through the scrotum with color and doppler flow. COMPARISON: None Available. FINDINGS: RIGHT TESTICLE: Measures 4.4 x 3.2 x 3.1 cm. There is increased flow to the right testicle compared to the left. This is suggestive of orchitis. Microlithiasis is seen. RIGHT EPIDIDYMIS: Epididymal head measures 1.2 x 0.7 x 1.6 cm. Grossly unremarkable appearance with normal flow. LEFT TESTICLE: Measures 4.6 x 2.3 x 3.1 cm. Normal echotexture and flow. LEFT EPIDIDYMIS: Epididymal head measures 1.1 x 1.1 x 1.5 cm. Grossly unremarkable appearance with normal flow. HYDROCELE: Large right-sided hydrocele. Smaller left-sided hydrocele VARICOCELE: None. OTHER FINDINGS: IMPRESSION: Increased blood flow to the right testicle suggestive of orchitis. Bilateral hydrocele right greater than left
== END 2018-05-23 05:33 | disposition home or self-care (01) ==
LOC: ED 01:51
DX: J06.9 Acute upper respiratory infection, unspecified (principal); R05 Cough; N43.3 Hydrocele, unspecified; I10 Essential (primary) hypertension; K21.9 Gastro-esophageal reflux disease without esophagitis; Z86.711 Personal history of pulmonary embolism; R09.89 Other specified symptoms and signs involving the circulatory and respiratory systems

== ENCOUNTER 2018-08-30 01:14 | Emergency (ER) | payer MEDICAID ==
[2018-08-30 01:15] VITALS: BMI 55.7
[2018-08-30 01:30] VITALS: TEMP 99
--- NOTE | 2018-08-30 01:36 | ED PDOC ---
Arrival/HPI - General Chief Complaint: Lower Extremity Problem/Injury Time Seen by Provider: 08/30/18 01:22 Historian: Patient - History of Present Illness Narrative History of Present Illness (Text): 08/30/18 01:36 Juan J Landry is a 48 year old male, whose past medical history includes PE, hypertension, GERD, and Gout, who presents to the Emergency department complaining of complaining of calf pain. Patient states he fell asleep while sitting in his recliner and woke up with bilateral lower extremity pain, worse in his left calf. Patient was concerned due to his history of PE and came in for further evaluation. Patient denies any fever, chills, chest pain, shortness of breath, nausea, vomiting, diarrhea, urinary symptoms, back pain, neck pain, headache, dizziness, or any other complaints. Symptom Onset: Gradual Symptom Course: Unchanged Activities at Onset: Light Context: Home Past Medical History - Provider Review Nursing Documentation Reviewed: Yes - Infectious Disease Hx of Infectious Diseases: None - Tetanus Immunization Tetanus Immunization: Unknown - Cardiac Hx Cardiac Disorders: Yes Hx Hypertension: Yes - Pulmonary Hx Respiratory Disorders: Yes Hx Sleep Apnea: Yes - Neurological Hx Neurological Disorder: Yes Hx Dizziness: Yes - HEENT Hx HEENT Disorder: No - Renal Hx Renal Disorder: No - Endocrine/Metabolic Hx Endocrine Disorders: No - Hematological/Oncological Hx Blood Disorders: No - Integumentary Hx Dermatological Disorder: No - Musculoskeletal/Rheumatological Hx Musculoskeletal Disorders: Yes Hx Gout: Yes - Gastrointestinal Hx Gastrointestinal Disorders: Yes (obese) - Genitourinary/Gynecological Hx Genitourinary Disorders: No - Psychiatric Hx Psychophysiologic Disorder: No Hx Substance Use: No - Surgical History Hx Orthopedic Surgery: Yes (ORIF LEFT HIP) - Anesthesia Hx Anesthesia: Yes Hx Anesthesia Reactions: No Hx Malignant Hyperthermia: No - Suicidal Assessment Feels Threatened In Home Enviroment: No Family/Social History - Physician Review Nursing Documentation Reviewed: Yes Family/Social History: Unknown Family HX Smoking Status: Never Smoked Hx Alcohol Use: No Hx Substance Use: No Hx Substance Use Treatment: No Allergies/Home Meds Allergies/Adverse Reactions: Allergies hydrochlorothiazide [From Hyzaar] Allergy (Verified 05/23/18 02:00) ANAPHYLAXIS losartan potassium [From Hyzaar] Allergy (Verified 05/23/18 02:00) ANAPHYLAXIS amlodipine besylate [From Norvasc] Adverse Reaction (Verified 05/23/18 02:00) HEADACHE pt feels jittery Home Medications: Home Meds Medication Instructions Recorded Confirmed Nebivolol [Bystolic] 10 mg PO DAILY 07/05/16 08/30/18 Review of Systems - Physician Review All systems were reviewed & negative as marked: Yes - Review of Systems Constitutional: Normal. absent: Fevers Eyes: Normal ENT: Normal Respiratory: Normal. absent: SOB, Cough Cardiovascular: Calf Pain. absent: Chest Pain Gastrointestinal: Normal. absent: Abdominal Pain, Diarrhea, Nausea, Vomiting Genitourinary Male: Normal. absent: Dysuria, Frequency, Hematuria, Urinary Output Changes Musculoskeletal: Other (+bilateral lower extremity pain). absent: Back Pain, Neck Pain Skin: Normal. absent: Rash Neurological: Normal. absent: Headache, Dizziness Endocrine: Normal Hemo/Lymphatic: Normal Psychiatric: Normal Physical Exam Vital Signs Reviewed: Yes Vital Signs Temp Pulse Resp BP Pulse Ox 08/30/18 01:31 213/110 H 08/30/18 01:30 99 F 68 18 100 Temperature: Afebrile Blood Pressure: Normal Pulse: Regular Respiratory Rate: Normal Appearance: Positive for: Well-Appearing, Non-Toxic, Comfortable Pain Distress: None Mental Status: Positive for: Alert and Oriented X 3 - Systems Exam Head: Present: Atraumatic, Normocephalic Pupils: Present: PERRL Extroacular Muscles: Present: EOMI Conjunctiva: Present: Normal Mouth: Present: Moist Mucous Membranes Neck: Present: Normal Range of Motion Respiratory/Chest: Present: Clear to Auscultation, Good Air Exchange. No: Respiratory Distress, Accessory Muscle Use Cardiovascular: Present: Regular Rate and Rhythm, Normal S1, S2. No: Murmurs Abdomen: No: Tenderness, Distention, Peritoneal Signs Back: Present: Normal Inspection Upper Extremity: Present: Normal Inspection. No: Cyanosis, Edema Lower Extremity: Present: Normal Inspection, NORMAL PULSES, Normal ROM, Neurovascularly Intact, Capillary Refill < 2 s. No: Edema, Cyanosis, Tenderness, Swelling, Erythema, Deformity, Temperature Abnormalties Neurological: Present: GCS=15, CN II-XII Intact, Speech Normal Skin: Present: Warm, Dry, Normal Color. No: Rashes Psychiatric: Present: Alert, Oriented x 3, Normal Insight, Normal Concentration Medical Decision Making ED Course and Treatment: 08/30/18 01:36 Impression: 48 year old male complaining of bilateral lower extremity pain, worse in left calf. Plan: -- US Duplex Lower Extremities -- EKG -- Labs, troponin, D-dimer -- Apresoline -- Reassess and disposition Prior Visits: Notes and results from previous visits were reviewed. Progress Notes: 08/30/18 03:00 US Duplex Lower Extremities preliminary read negative for DVT. 08/30/18 04:45 On re-evaluation, patient feels better and is in no acute distress. I have discussed the results and plan with the patient, who expresses understanding. Patient in agreement with plan to be discharged home. Patient is stable for discharge. Patient was instructed to follow up with physician or return if symptoms worsen or new concerning symptoms arise. - Lab Interpretations I have reviewed the lab results: Yes - Scribe Statement The provider has reviewed the documentation as recorded by the Donibe Esperanza García Provider Scribe Attestation: All medical record entries made by the Scribe were at my direction and personally dictated by me. I have reviewed the chart and agree that the record accurately reflects my personal performance of the history, physical exam, medical decision making, and the department course for this patient. I have also personally directed, reviewed, and agree with the discharge instructions and disposition. Disposition/Present on Arrival - Present on Arrival Any Indicators Present on Arrival: No History of DVT/PE: Yes History of Uncontrolled Diabetes: No Urinary Catheter: No History of Decub. Ulcer: No History Surgical Site Infection Following: None - Disposition Have Diagnosis and Disposition been Completed?: Yes Diagnosis: Leg pain, bilateral, Hypertension Disposition: HOME/ ROUTINE Disposition Time: 05:00 Condition: GOOD Discharge Instructions (ExitCare): High Blood Pressure (DC), Lower Extremity Muscle Strain Additional Instructions: follow up with dr lamb Referrals: Arabella Boogie MD [Primary Care Provider] - Follow up with primary Forms: [employer] (Kazakh)
[2018-08-30 02:14] LABS: ALB/GLOB RATIO 1.2 (1.1-1.8); ALBUMIN 4.1 g/dL (3.0-4.8); ALT/SGPT 16 U/L (7-56); AST/SGOT 34 U/L (17-59); BASO # 0.04 K/mm3 (0.0-2.0); BASO % 0.3 % (0.0-3.0); BLOOD UREA NITROGEN 14 mg/dL (7-21); CALCIUM 9.1 mg/dL (8.4-10.5); EOS # 0.1 (0.0-0.7); EOS % 0.8 % (1.5-5.0); GFR NON-AFRICAN AMERICAN > 60; HEMOGLOBIN 13.5 g/dL (14.0-18.0); LYMPH # 5.7 (1.2-3.4); LYMPH % 43.6 % (22.0-35.0); MEAN CELL VOLUME 83.6 fl (80.0-105.0); MEAN CORPUSCULAR HEMOGLOBIN 26.9 pg (25.0-35.0); MEAN CORPUSCULAR HGB CONC 32.2 g/dl (31.0-37.0); RBC 5.01 10^6/uL (3.5-6.1); RED CELL DISTRIBUTION WIDTH 13.1 % (11.5-14.5)
[2018-08-30 02:18] LABS: INR 1.23; PARTIAL THROMBOPLASTIN TIME 36.5 Seconds (26.9-38.3); PROTHROMBIN TIME 13.7 SECONDS (9.4-12.5)
[2018-08-30 02:26] LABS: TROPONIN I < 0.01 ng/mL
[2018-08-30 03:29] VITALS: RESP 15
[2018-08-30 04:14] VITALS: BP 163/76; PULSE 71; O2SAT 100
--- NOTE | 2018-08-30 09:29 | US ---
HISTORY: Leg pain and swelling. Evaluate for DVT PHYSICIAN(S): Wayne Townsend MD. TECHNIQUE: Duplex sonography and color-flow Doppler with graded compression were used to evaluate the deep venous systems of both lower extremities. The exam is very limited by body habitus and edema. The tibial veins are not adequately seen FINDINGS: The visualized deep venous systems of both lower extremities are sonographically normal and compressible. Normal wave forms and augmentation are seen. There is no sonographic evidence for deep venous thrombosis in the visualized segments of both lower extremities. IMPRESSION: No sonographic evidence for deep venous thrombosis in the visualized segments of both lower extremities. Very limited study
== END 2018-08-30 05:02 | disposition home or self-care (01) ==
LOC: ED 01:14
DX: I10 Essential (primary) hypertension (principal); M79.604 Pain in right leg; M79.605 Pain in left leg; K21.9 Gastro-esophageal reflux disease without esophagitis; M10.9 Gout, unspecified
CPT/HCPCS: 80053; 84484; 85025; 85378; 85610; 85730; 93970; 96374; 96376; 99284; J0360

== ENCOUNTER 2018-09-04 15:50 | Emergency (ER) | payer MEDICAID ==
[2018-09-04 15:51] VITALS: BMI 55.7
--- NOTE | 2018-09-04 17:04 | ED PDOC ---
Arrival/HPI - General Chief Complaint: Lower Extremity Problem/Injury Time Seen by Provider: 09/04/18 15:58 Historian: Patient - History of Present Illness Narrative History of Present Illness (Text): 09/04/18 17:01 48-year-old male presents today with a lump to the left calf. Patient states he was showering today and he noticed a little bit of swelling to the lateral aspect of the calf. Patient states he has a slight pain when he walks but not to palpation. Patient denies chest pain or shortness of breath. No fevers or chills. No dizziness or weakness. No numbness or tingling in the extremity. No other complaints Past Medical History - Provider Review Nursing Documentation Reviewed: Yes - Travel History Have you recently traveled outside [place] w/in the past 3 mons?: No - Infectious Disease Hx of Infectious Diseases: None - Tetanus Immunization Tetanus Immunization: Unknown - Cardiac Hx Cardiac Disorders: Yes Hx Hypertension: Yes - Pulmonary Hx Respiratory Disorders: Yes Hx Pulmonary Embolism: Yes Hx Sleep Apnea: Yes - Neurological Hx Neurological Disorder: Yes Hx Dizziness: Yes - HEENT Hx HEENT Disorder: No - Renal Hx Renal Disorder: No - Endocrine/Metabolic Hx Endocrine Disorders: No - Hematological/Oncological Hx Blood Disorders: No - Integumentary Hx Dermatological Disorder: No - Musculoskeletal/Rheumatological Hx Musculoskeletal Disorders: Yes Hx Gout: Yes - Gastrointestinal Hx Gastrointestinal Disorders: Yes (obese) - Genitourinary/Gynecological Hx Genitourinary Disorders: No - Psychiatric Hx Psychophysiologic Disorder: No Hx Substance Use: No - Surgical History Hx Orthopedic Surgery: Yes (ORIF LEFT HIP) - Anesthesia Hx Anesthesia: Yes Hx Anesthesia Reactions: No Hx Malignant Hyperthermia: No - Suicidal Assessment Feels Threatened In Home Enviroment: No Family/Social History - Physician Review Nursing Documentation Reviewed: Yes Family/Social History: Unknown Family HX Smoking Status: Never Smoked Hx Alcohol Use: No Hx Substance Use: No Hx Substance Use Treatment: No Allergies/Home Meds Allergies/Adverse Reactions: Allergies hydrochlorothiazide [From Hyzaar] Allergy (Verified 05/23/18 02:00) ANAPHYLAXIS losartan potassium [From Hyzaar] Allergy (Verified 05/23/18 02:00) ANAPHYLAXIS amlodipine besylate [From Norvasc] Adverse Reaction (Verified 05/23/18 02:00) HEADACHE pt feels jittery Home Medications: Home Meds Medication Instructions Recorded Confirmed Nebivolol [Bystolic] 10 mg PO DAILY 07/05/16 09/04/18 Review of Systems - Review of Systems Constitutional: absent: Fatigue, Fevers Respiratory: absent: SOB, Cough Cardiovascular: absent: Chest Pain, Palpitations Gastrointestinal: absent: Abdominal Pain, Nausea, Vomiting Musculoskeletal: Arthralgias. absent: Back Pain, Neck Pain Skin: absent: Rash, Pruritis Neurological: absent: Headache, Dizziness Psychiatric: absent: Anxiety, Depression Physical Exam Vital Signs Reviewed: Yes Vital Signs Temp Pulse Resp BP Pulse Ox 09/04/18 16:15 98.7 F 90 18 144/76 98 Temperature: Afebrile Blood Pressure: Normal Pulse: Regular Respiratory Rate: Normal Appearance: Positive for: Well-Appearing, Non-Toxic, Comfortable Pain Distress: None Mental Status: Positive for: Alert and Oriented X 3 - Systems Exam Head: Present: Atraumatic Mouth: Present: Moist Mucous Membranes Neck: Present: Normal Range of Motion Respiratory/Chest: Present: Clear to Auscultation, Good Air Exchange. No: Respiratory Distress, Accessory Muscle Use Cardiovascular: Present: Regular Rate and Rhythm, Normal S1, S2. No: Murmurs Abdomen: No: Tenderness, Rebound, Guarding Back: Present: Normal Inspection Upper Extremity: Present: Normal ROM Lower Extremity: Present: Edema, NORMAL PULSES, Normal ROM, Neurovascularly Intact, Other (left calf; there is a small round area of swelling vs mass. no erythema; no tenderness. no warmth. ). No: CALF TENDERNESS, Tenderness, Temp erature Abnormalties Neurological: Present: GCS=15, Speech Normal Skin: Present: Warm, Dry Psychiatric: Present: Alert, Oriented x 3 Medical Decision Making ED Course and Treatment: 09/04/18 19:32 Patient is nontoxic well-appearing no distress stable vital signs Venous duplex of the left lower leg no DVT no visualized mass on ultrasound X-rays of the left tib-fib: No fracture no foreign body no visualized mass The patient is nontoxic well-appearing no distress ambulating with a steady gait. Discussed the results in depth with the patient advised follow-up with the surgeon, the vascular specialist as well as a primary care physician. Advised pt to return if symptoms worsen persist or if new concerning symptoms develop Patient verbalizes understanding of discharge instructions and need for immediate followup. All aspects of this case were discussed the attending of record. Impression: Leg edema, soft tissue mass Follow-up with primary care physician within the next 2 days Follow-up with a vascular specialist within the next 2 days Follow-up with a surgeon within the next 2 days Return if symptoms worsen persist or if new concerning symptoms develop - RAD Interpretation Radiology Orders: 09/04/18 16:56 DUPLEX LOWER EXTRM VEIN LEFT [US] Stat 09/04/18 16:57 TIBIA FIBULA LEFT [RAD] Stat Disposition/Present on Arrival - Present on Arrival Any Indicators Present on Arrival: Yes History of DVT/PE: Yes History of Uncontrolled Diabetes: No Urinary Catheter: No History of Decub. Ulcer: No History Surgical Site Infection Following: None - Disposition Have Diagnosis and Disposition been Completed?: Yes Diagnosis: Leg swelling, Soft tissue mass Disposition: HOME/ ROUTINE Disposition Time: 18:52 Patient Plan: Discharge Condition: GOOD Discharge Instructions (ExitCare): Dependent Edema (DC) Additional Instructions: Follow-up with primary care physician within the next 2 days Follow-up with a vascular specialist within the next 2 days Follow-up with a surgeon within the next 2 days Return if symptoms worsen persist or if new concerning symptoms develop Referrals: Sai Boogie MD [Primary Care Provider] - Follow up with primary Wayne Townsend MD [Staff Provider] - Follow up with primary Abdoul Gruber MD [Staff Provider] - Follow up with primary Forms: [employer] (Thai)
[2018-09-04 18:44] VITALS: TEMP 97.6
[2018-09-04 19:09] VITALS: BP 130/63; PULSE 86; RESP 18; O2SAT 98
--- NOTE | 2018-09-05 08:58 | US ---
PROCEDURE: Left lower extremity venous US HISTORY: Leg pain and swelling. Evaluate for DVT. PHYSICIAN(S): Wayne Townsend MD. TECHNIQUE: Duplex sonography and color-flow Doppler with graded compression were used to evaluate the deep venous system of the left lower extremity. FINDINGS: Exam is very limited by body habitus and edema. The lower femoral veins and tibial veins are not adequately seen The visualized deep venous system of the left lower extremity is sonographically normal and compressible. Normal wave forms and augmentation are seen. There is no sonographic evidence for deep venous thrombosis in the visualized segments of the left lower extremity. IMPRESSION: 1. No sonographic evidence for deep venous thrombosis in the visualized segments of the left lower extremity. 2. Very limited study.
--- NOTE | 2018-09-05 11:34 | RAD ---
Date of service: 09/04/2018 PROCEDURE: Radiographs of the left tibia and fibula. HISTORY: soft tissue mass? lateral aspect COMPARISON: None available. TECHNIQUE: Frontal and lateral views obtained. 2 views obtained. FINDINGS: BONES: No fracture or destructive lesion. JOINT SPACES: Unremarkable. OTHER FINDINGS: Lower extremity/calf edema. The findings are incompletely visualized. IMPRESSION: Soft tissue swelling without acute articular or osseous abnormality.
== END 2018-09-04 19:08 | disposition home or self-care (01) ==
LOC: ED 15:50
DX: M79.89 Other specified soft tissue disorders (principal); R22.42 Localized swelling, mass and lump, left lower limb; I10 Essential (primary) hypertension